=== PATIENT | male | born 1975 | race Hispanic/Latino ===

== ENCOUNTER 2016-10-06 00:56 | Emergency (ER) | payer MEDICAID, OTHER ==
[2016-10-06 00:56] VITALS: BMI 24.2
[2016-10-06 01:18] VITALS: BP 118/64; RESP 16; TEMP 98.2
[2016-10-06 01:35] VITALS: PULSE 89; O2SAT 98
--- NOTE | 2016-10-06 01:38 | ED PDOC ---
HPI: Psych/Substance Abuse Time Seen by Provider: 10/06/16 01:13 Chief Complaint (Nursing): Substance Abuse Chief Complaint (Provider): ETOH History Per: Patient History/Exam Limitations: no limitations Onset/Duration Of Symptoms: Unknown Current Symptoms Are (Timing): Still Present Suicide/Self Injury Attempted (Context): None Modifying Factor(s): Alcohol Associated Symptoms: denies: Anger, Anxiety, Agitation, Depression, Paranoia, Suicidal Thoughts, Suicidal Plan Involuntary Hold By: None Additional History Per: Patient Additional Complaint(s): 41 y/o male who is well known to this department who presents this evening for public intoxication. He admits to ETOH tonight and denies any medical complaint. Past Medical History Vital Signs: Last Vital Signs Temp 98.2 F 10/06/16 01:16 Pulse 89 10/06/16 01:35 Resp 16 10/06/16 01:35 BP 118/64 10/06/16 01:16 Pulse Ox 98 10/06/16 01:35 - Medical History PMH: Anxiety, Arthritis (b/l ankle), Depression, Fractures (left leg), Seizures (alcohol related) Denies: HIV, HTN, Chronic Kidney Disease, Sexually Transmitted Disease - Surgical History Surgical History: No Surg Hx - Family History Family History: States: Unknown Family Hx - Social History Current smoker - smoking cessation education provided: No Alcohol: Occasional - Immunization History Hx Tetanus Toxoid Vaccination: No Hx Influenza Vaccination: No Hx Pneumococcal Vaccination: No - Home Medications Home Medications: Ambulatory Orders Medication Instructions Recorded Phenytoin, Extended [Dilantin 100 mg PO TID #30 cer 04/24/16 Kapseals] chlordiazePOXIDE [Chlordiazepoxide 25 mg PO TID 06/21/16 HCl] Folic Acid 1 mg PO DAILY tab 06/27/16 Multivitamins [Hexavitamin] 1 tab PO DAILY tab 06/27/16 cefTRIAXone [Rocephin] 1 gm IVPB DAILY vial 06/27/16 traZODone [Desyrel] 50 mg PO HS PRN #30 tab 06/27/16 - Allergies Allergies/Adverse Reactions: Allergies Allergy/AdvReac Type Severity Reaction Status Date / Time No Known Allergies Allergy Verified 07/27/16 21:12 Review of Systems ROS Statement: Except As Marked, All Systems Reviewed And Found Negative Physical Exam - Reviewed Nursing Documentation Reviewed: Yes Vital Signs Reviewed: Yes - Physical Exam Appears: Positive for: Well, Non-toxic, No Acute Distress Head Exam: Positive for: ATRAUMATIC, NORMAL INSPECTION, NORMOCEPHALIC Skin: Positive for: Normal Color, Warm, DRY Eye Exam: Positive for: EOMI, Normal appearance, PERRL ENT: Positive for: Normal ENT Inspection Neck: Positive for: Normal, Painless ROM Cardiovascular/Chest: Positive for: Regular Rate, Rhythm Respiratory: Positive for: CNT, Normal Breath Sounds Gastrointestinal/Abdominal: Positive for: Normal Exam, Bowel Sounds, Soft Back: Positive for: Normal Inspection Extremity: Positive for: Normal ROM Neurologic/Psych: Positive for: Alert, Oriented - ECG O2 Sat by Pulse Oximetry: 98 Medical Decision Making Medical Decision Making: Time: 01:37a Impression: 41 y/o male who is here for public intoxication. Discharge Instructions: He is awake and alert, gait is steady, and there are no medical complaints. Counseling was provided regarding the diagnosis and prognosis. All questions answered and there is agreement with the plan to discharge home with instructions. Patient stable for discharge. Return if symptoms persist or worsen. Scribe Attestation: Documented by Stephanie De Guzman acting as a scribe for Franck Higgins MD. Scribe Attestation: All medical record entries made by the Scribe were at my direction and personally dictated by me. I have reviewed the chart and agree that the record accurately reflects my personal performance of the history, physical exam, medical decision making, and the department course for this patient. I have also personally directed, reviewed, and agree with the discharge instructions and disposition. Disposition - Clinical Impression Clinical Impression: Alcohol abuse - Patient ED Disposition Is Patient to be Admitted: No Counseled Patient/Family Regarding: Diagnosis, Need For Followup - Disposition Disposition: Routine/Home Disposition Time: 01:40 Condition: STABLE Instructions: Alcohol Dependence (ED)
== END 2016-10-06 01:44 | disposition home or self-care (01) ==
LOC: H.ER 00:56
DX: F10.10 Alcohol abuse, uncomplicated (principal); F32.9 Major depressive disorder, single episode, unspecified; F41.9 Anxiety disorder, unspecified

== ENCOUNTER 2016-11-18 18:38 | Emergency (ER) | payer MEDICAID, OTHER ==
[2016-11-18 18:38] VITALS: BMI 25.0
[2016-11-18 18:51] VITALS: BP 128/78; PULSE 82; RESP 18; TEMP 97.9; O2SAT 97
== END 2016-11-18 19:00 | disposition left against medical advice (07) ==
LOC: H.ER 18:38
DX: Z02.89 Encounter for other administrative examinations (principal)

== ENCOUNTER 2016-11-21 03:44 | Emergency (ER) | payer MEDICAID, OTHER ==
[2016-11-21 03:45] VITALS: BMI 25.0
[2016-11-21 03:52] VITALS: BP 126/77; PULSE 92; RESP 17; TEMP 98; O2SAT 99
--- NOTE | 2016-11-21 04:17 | ED PDOC ---
Lower Extremity Pain/Injury Time Seen by Provider: 11/21/16 03:49 Chief Complaint (Nursing): Lower Extremity Problem/Injury Chief Complaint (Provider): Lower Extremity Problem/Injury History Per: Patient History/Exam Limitations: no limitations Severity: Mild Additional Complaint(s): 41 y/o male patient presenting to the ED with knee pain and medical clearance need. Pt states he suffers from chronic knee pain and is experiencing right knee pain. PT is well known to this provider for alcoholism. PT was brought in by [place] police department due to the PT having an outstanding warrant and needed to be medically cleared for incarceration. PT states he takes Dilantin for his alcohol related sickness but he has not been taking it regularly. Past Medical History Reviewed: Historical Data, Nursing Documentation, Vital Signs Vital Signs: Last Vital Signs Temp 98.0 F 11/21/16 03:49 Pulse 92 H 11/21/16 03:49 Resp 17 11/21/16 03:49 BP 126/77 11/21/16 03:49 Pulse Ox 99 11/21/16 03:49 - Medical History PMH: Anxiety, Arthritis (b/l ankle), Depression, Fractures (left leg), Seizures (alcohol related) Denies: HIV, HTN, Chronic Kidney Disease, Sexually Transmitted Disease - Family History Family History: States: Unknown Family Hx - Social History Current smoker - smoking cessation education provided: No Alcohol: > 2 Drinks/Day Drugs: Denies - Immunization History Hx Tetanus Toxoid Vaccination: No Hx Influenza Vaccination: No Hx Pneumococcal Vaccination: No - Home Medications Home Medications: Ambulatory Orders Medication Instructions Recorded No Known Home Med 11/19/16 - Allergies Allergies/Adverse Reactions: Allergies Allergy/AdvReac Type Severity Reaction Status Date / Time No Known Allergies Allergy Verified 11/19/16 23:39 Review of Systems ROS Statement: Except As Marked, All Systems Reviewed And Found Negative Musculoskeletal: Positive for: Leg Pain ((+)Right Knee Pain) Physical Exam - Reviewed Nursing Documentation Reviewed: Yes Vital Signs Reviewed: Yes - Physical Exam Appears: Positive for: Non-toxic, No Acute Distress Skin: Positive for: Normal Color, Warm, Dry Extremity: Positive for: Normal ROM Neurologic/Psych: Positive for: Alert, Oriented, Other ((+)Unkempt). Negative for: Motor/Sensory Deficits - ECG O2 Sat by Pulse Oximetry: 99 (RA) Pulse Ox Interpretation: Normal Medical Decision Making Medical Decision Making: Time: 348 Initial impression: Chronic Knee Pain, Medical Clearance, PMHX of Alcoholism, Seizures due to alcoholism. Initial plan: --Ibuprofen --Phenytoin 0400: Discharge PT stable for discharged and cleared for transfer to law enforcement. Scribe Attestation: Documented by Christen Monaco, acting as a scribe for Franck Higgins MD MD Scribe Attestation: All medical record entries made by the Scribe were at my direction and personally dictated by me. I have reviewed the chart and agree that the record accurately reflects my personal performance of the history, physical exam, medical decision making, and the department course for this patient. I have also personally directed, reviewed, and agree with the discharge instructions and disposition. Disposition - Clinical Impression Clinical Impression: Knee pain, Alcohol dependence syndrome - Patient ED Disposition Is Patient to be Admitted: No - Disposition Disposition: Discharged/Transfer to Law Enforcement Disposition Time: 04:00 Condition: STABLE Additional Instructions: Patient is medically and psychiatrically stable for incarceration Instructions: Knee Pain (ED), Alcohol Dependence (ED)
== END 2016-11-21 05:32 ==
LOC: H.ER 03:44
DX: F10.20 Alcohol dependence, uncomplicated (principal); G89.29 Other chronic pain; F32.9 Major depressive disorder, single episode, unspecified; F41.9 Anxiety disorder, unspecified

== ENCOUNTER 2017-04-25 21:44 | Emergency (ER) | payer MEDICAID, OTHER ==
[2017-04-25 21:44] VITALS: BMI 25.0
[2017-04-25 21:50] VITALS: BP 156/75; PULSE 86; RESP 18; TEMP 97.9; O2SAT 97
--- NOTE | 2017-04-25 22:25 | ED PDOC ---
HPI: Psych/Substance Abuse Time Seen by Provider: 04/25/17 21:52 Chief Complaint (Nursing): Alcohol Ingestion Chief Complaint (Provider): Alcohol Intoxication ED Caveat: Intoxicated History Per: Patient History/Exam Limitations: intoxication Current Symptoms Are (Timing): Still Present Additional History Per: EMS Additional Complaint(s): Donal is a 42 y/o male with a history of alcoholism was brought to the ED by EMS after he was found in someone's hallway asleep. Patient admits to drinking today and states he just wanted to find some place warm. He was recently hospitalized and discharged today for possible cellulitis but ultimately dermatitis and hyponatremia. His only complaint is leg pains consistent with his chronic pains, and he says he is hungry and requests food. Patient is undomiciled. PMD: None Past Medical History Reviewed: Historical Data, Nursing Documentation, Vital Signs Vital Signs: Last Vital Signs Temp 97.9 F 04/25/17 21:46 Pulse 86 04/25/17 21:46 Resp 18 04/25/17 21:46 BP 156/75 H 04/25/17 21:46 Pulse Ox 97 04/25/17 21:46 - Medical History PMH: Anxiety, Arthritis (b/l ankle), Depression, Fractures (left leg), Seizures (alcohol related) Denies: Chronic Kidney Disease - Family History Family History: States: Unknown Family Hx - Living Arrangements Living Arrangements: Other (undomiciled) - Social History Current smoker - smoking cessation education provided: Yes Alcohol: > 2 Drinks/Day - Immunization History Hx Tetanus Toxoid Vaccination: No Hx Influenza Vaccination: No Hx Pneumococcal Vaccination: No - Home Medications Home Medications: Ambulatory Orders Medication Instructions Recorded No Known Home Med 11/19/16 - Allergies Allergies/Adverse Reactions: Allergies Allergy/AdvReac Type Severity Reaction Status Date / Time No Known Allergies Allergy Verified 04/17/17 14:00 Review of Systems Review Of Systems: ROS cannot be obtained secondary to pt's inabilty to answer questions. Cardiovascular: Positive for: Edema Musculoskeletal: Positive for: Back Pain, Leg Pain Skin: Positive for: Rash (both legs) Physical Exam - Reviewed Nursing Documentation Reviewed: Yes Vital Signs Reviewed: Yes - Physical Exam Appears: Positive for: Non-toxic, No Acute Distress (dissheveled and unkempt) Head Exam: Positive for: ATRAUMATIC, NORMOCEPHALIC Skin: Positive for: Rash (dried stool upper posterior legs, nonblanching purple erythema bilateral posterior upper legs to buttocks) Eye Exam: Positive for: EOMI, PERRL Neck: Positive for: Painless ROM, Supple Gastrointestinal/Abdominal: Positive for: Soft. Negative for: Tenderness, Mass , Distended, Guarding Back: Positive for: Normal Inspection. Negative for: Decreased ROM Extremity: Positive for: Other (bilateral upper legs: rash as described, pedal edema) Lymphatic: Negative for: Adenopathy Neurologic/Psych: Positive for: Alert. Negative for: Motor/Sensory Deficits - Laboratory Results Result Diagrams: 04/25/17 22:33 04/25/17 22:33 - ECG O2 Sat by Pulse Oximetry: 97 (RA) Pulse Ox Interpretation: Normal Medical Decision Making Medical Decision Making: Time: 22:14 Initial Impression: Alcohol intoxication, homelessness, dermatitis, chronic leg pain Initial Plan: --Blood type and screen --Alcohol serum --CMP --Creatinine Phosphate --Magnesium --Phosphorous --CBC --PTT --Prothrombin Time Pt with hyponatremia. IVF ordered No lab abnormalities c/w acute infection. STable for dc. Scribe Attestation: Documented by Mark Galindo, acting as a scribe for Michelle Escalante MD Provider Scribe Attestation: All medical record entries made by the Scribe were at my direction and personally dictated by me. I have reviewed the chart and agree that the record accurately reflects my personal performance of the history, physical exam, medical decision making, and the department course for this patient. I have also personally directed, reviewed, and agree with the discharge instructions and disposition. Disposition - Clinical Impression Clinical Impression: Alcohol intoxication, Hyponatremia, Stasis dermatitis of both legs - Disposition Referrals: [facility] [Outside] Disposition: Routine/Home Disposition Time: 23:36 Condition: STABLE Instructions: Hyponatremia (ED), Abuse of Alcohol (ED), Stasis Dermatitis (ED) Forms: [employer] (Thai)
[2017-04-25 22:38] LABS: BASO # 0.1 K/uL (0.0-0.2); BASO % 1.5 % (0.0-2.0); EOS # 0.2 K/uL (0.0-0.7); EOS % 2.3 % (0.0-4.0); HEMOGLOBIN 13.6 g/dL (12.0-18.0); LYMPH # 2.7 K/uL (1.0-4.3); LYMPH % 29.1 % (20.0-40.0); MEAN CELL VOLUME 97.6 fl (80.0-94.0); MEAN CORPUSCULAR HEMOGLOBIN 33.6 pg (27.0-31.0); MEAN CORPUSCULAR HGB CONC 34.4 g/dL (33.0-37.0); MEAN PLATELET VOLUME 6.3 fl (7.2-11.7); MONO # 1.1 K/uL (0.0-0.8); MONO % 12.5 % (0.0-10.0); NEUT % 54.6 % (50.0-75.0); RBC 4.05 Mil/uL (4.40-5.90); RED CELL DISTRIBUTION WIDTH 12.7 % (11.5-14.5); WHITE BLOOD COUNT 9.1 K/uL (4.8-10.8)
[2017-04-25 22:49] LABS: ALB/GLOB RATIO 1.2 (1.0-2.1); ALT/SGPT 32 U/L (21-72); AST/SGOT 38 U/L (17-59); BLOOD UREA NITROGEN 4 mg/dl (9-20); CALCIUM 9.1 mg/dL (8.4-10.2); GFR AFRICAN-AMERICAN > 60; GFR NON-AFRICAN AMERICAN > 60; MAGNESIUM 1.5 MG/DL (1.6-2.3)
[2017-04-25 23:23] LABS: INR 0.9 (0.9-1.2); PROTHROMBIN TIME 9.6 Seconds (9.8-13.1)
[2017-04-25 23:24] LABS: PARTIAL THROMBOPLASTIN TIME 36.7 Seconds (25.6-37.1)
[2017-04-25] MEDS ORDERED: Sodium Chloride 0.9% 1,000 ML IV STA (23:34)
== END 2017-04-26 01:11 | disposition home or self-care (01) ==
LOC: H.ER 21:44
DX: F10.129 Alcohol abuse with intoxication, unspecified (principal); E87.1 Hypo-osmolality and hyponatremia; G89.29 Other chronic pain; L30.9 Dermatitis, unspecified; Z59.0 Homelessness; I87.2 Venous insufficiency (chronic) (peripheral); F41.9 Anxiety disorder, unspecified; F32.9 Major depressive disorder, single episode, unspecified
CPT/HCPCS: 80053; 80320; 82550; 82948; 83735; 84100; 85025; 85610; 85730; 86850; 86900; 99282; J7040

== ENCOUNTER 2017-05-04 05:16 | Emergency (ER) | payer MEDICAID ==
[2017-05-04 05:25] VITALS: BP 138/90; PULSE 78; RESP 18; TEMP 98; O2SAT 98
--- NOTE | 2017-05-04 05:26 | ED PDOC ---
HPI: General Adult Time Seen by Provider: 05/04/17 05:23 Chief Complaint (Provider): leg pain History Per: Patient Additional Complaint(s): 42 year old non-domiciled male presents to ED with pain to both legs ongoing for about 5 days. Patient states he has been walking a lot and his feet hurt. Patient also admits to daily alcohol use. He denies fall or trauma. Patient denies any seizures today. Past Medical History Reviewed: Historical Data, Nursing Documentation, Vital Signs - Medical History PMH: Anxiety, Arthritis (b/l ankle), Depression, Fractures (left leg), Seizures (alcohol related) - Family History Family History: States: Unknown Family Hx - Living Arrangements Living Arrangements: Other (non-domiciled) - Social History Alcohol: > 2 Drinks/Day - Home Medications Home Medications: Ambulatory Orders Medication Instructions Recorded Phenytoin, Extended [Dilantin 100 mg PO TID #90 cer 05/03/17 Evelyn] - Allergies Allergies/Adverse Reactions: Allergies Allergy/AdvReac Type Severity Reaction Status Date / Time No Known Allergies Allergy Verified 05/02/17 23:56 Review of Systems ROS Statement: Except As Marked, All Systems Reviewed And Found Negative Musculoskeletal: Positive for: Leg Pain Physical Exam - Reviewed Nursing Documentation Reviewed: Yes Vital Signs Reviewed: Yes - Physical Exam Appears: Positive for: Well, Non-toxic, No Acute Distress Head Exam: Positive for: ATRAUMATIC, NORMAL INSPECTION, NORMOCEPHALIC Skin: Negative for: Rash Eye Exam: Positive for: Normal appearance Extremity: Positive for: Normal ROM Neurologic/Psych: Positive for: Alert, Oriented, Gait (steady) - ECG O2 Sat by Pulse Oximetry: 98 Pulse Ox Interpretation: Normal Medical Decision Making Medical Decision Making: Impression: leg pain Patient is ambulatory with steady gait. He was referred to clinic for follow up. Disposition - Clinical Impression Clinical Impression: Alcohol abuse, Leg pain - Patient ED Disposition Is Patient to be Admitted: No - Disposition Referrals: [facility] [Outside] Disposition: Routine/Home Disposition Time: 05:24 Condition: STABLE Additional Instructions: Follow up with clinic. Instructions: Abuse of Alcohol (ED), Leg Pain (ED)
== END 2017-05-04 05:28 | disposition home or self-care (01) ==
LOC: H.ER 05:16
DX: F10.10 Alcohol abuse, uncomplicated (principal); M79.606 Pain in leg, unspecified; F32.9 Major depressive disorder, single episode, unspecified; F41.9 Anxiety disorder, unspecified

== ENCOUNTER 2017-05-06 19:15 | Emergency (ER) | payer MEDICAID ==
[2017-05-06 19:21] VITALS: BP 153/84; PULSE 96; RESP 18; TEMP 98.1; O2SAT 98
--- NOTE | 2017-05-06 19:38 | ED PDOC ---
Lower Extremity Pain/Injury Time Seen by Provider: 05/06/17 19:30 Chief Complaint (Nursing): Lower Extremity Problem/Injury Chief Complaint (Provider): Left Ankle Pain History Per: Patient History/Exam Limitations: no limitations Current Symptoms Are (Timing): Still Present Additional Complaint(s): 42 year old male presenting to ED complaining of left ankle pain. The patient states that he had an accident a few years villal[place] that causes him to have chronic pain in his ankle. Patient offers no other medical complaint. Past Medical History Reviewed: Historical Data, Nursing Documentation, Vital Signs Vital Signs: Last Vital Signs Temp 98.1 F 05/06/17 19:21 Pulse 96 H 05/06/17 19:21 Resp 18 05/06/17 19:21 BP 153/84 H 05/06/17 19:21 Pulse Ox 98 05/06/17 19:21 - Medical History PMH: Anxiety, Arthritis (b/l ankle), Depression, Fractures (left leg), Seizures (alcohol related) Denies: Chronic Kidney Disease - Surgical History Surgical History: No Surg Hx - Family History Family History: States: Unknown Family Hx - Living Arrangements Living Arrangements: Other ([place]omic[place]) - Social History Current smoker - smoking cessation education provided: Yes (Heavy Smoker > 10 Cigarettes Daily) Ex-Smoker (has not smoked in the last 12 months): Yes Alcohol: > 2 Drinks/Day Drugs: Denies - Immunization History Hx Tetanus Toxoid Vaccination: No Hx Influenza Vaccination: No Hx Pneumococcal Vaccination: No - Home Medications Home Medications: Ambulatory Orders Medication Instructions Recorded Phenytoin, Extended [Dilantin 100 mg PO TID #90 cer 05/03/17 Evelyn] - Allergies Allergies/Adverse Reactions: Allergies Allergy/AdvReac Type Severity Reaction Status Date / Time No Known Allergies Allergy Verified 05/06/17 19:19 Review of Systems ROS Statement: Except As Marked, All Systems Reviewed And Found Negative Constitutional: Negative for: Fever, Chills Gastrointestinal: Negative for: Abdominal Pain Musculoskeletal: Positive for: Other (left ankle pain) - ECG O2 Sat by Pulse Oximetry: 98 (RA) Pulse Ox Interpretation: Normal - Progress ED Course And Treament: Patient to f/u with podiatry outpatient for chronic ankle pain. Medical Decision Making Medical Decision Makin Initial Impression 42 y/o male presenting with left ankle pain Initial Plan: * Reevaluation Documented by Erin Singleton acting as a scribe for Charly Meade PA-C. All medical record entries made by the Scribe were at my direction and personally dictated by me. I have reviewed the chart and agree that the record accurately reflects my personal performance of the history, physical exam, medical decision making, and the department course for this patient. I have also personally directed, reviewed, and agree with the discharge instructions and disposition. Disposition - Clinical Impression Clinical Impression: Ankle pain - Patient ED Disposition Is Patient to be Admitted: No - Disposition Referrals: Podiatry Clinic [Outside] Disposition: Routine/Home Disposition Time: 19:35 Condition: FAIR Instructions: Leg Pain (ED) Forms: [employer] (Greek)
== END 2017-05-06 19:56 | disposition home or self-care (01) ==
LOC: H.ER 19:15
DX: M25.572 Pain in left ankle and joints of left foot (principal); F32.9 Major depressive disorder, single episode, unspecified; F41.9 Anxiety disorder, unspecified; F17.210 Nicotine dependence, cigarettes, uncomplicated

== ENCOUNTER 2017-05-11 16:43 | Emergency (ER) | payer MEDICAID ==
[2017-05-11 18:13] VITALS: BP 133/95; PULSE 93; RESP 16; O2SAT 100
--- NOTE | 2017-05-11 19:30 | ED PDOC ---
Lower Extremity Pain/Injury Time Seen by Provider: 05/11/17 18:09 Chief Complaint (Nursing): Lower Extremity Problem/Injury Chief Complaint (Provider): toe injury History Per: Patient History/Exam Limitations: no limitations Additional Complaint(s): 42yo Min ed for eval. Pt soiled himself while urinating. denies drug use today. PT also c.o of toe tingling sensation to left 2nd toe Pt is homeless no fever no chest pain no SOB Past Medical History Reviewed: Historical Data, Nursing Documentation, Vital Signs Vital Signs: Last Vital Signs Temp Pulse 93 H 05/11/17 18:11 Resp 16 05/11/17 18:11 BP 133/95 H 05/11/17 18:11 Pulse Ox 100 05/11/17 18:11 - Medical History PMH: Anxiety, Arthritis (b/l ankle), Depression, Fractures (left leg), Seizures (alcohol related) Denies: Chronic Kidney Disease - Family History Family History: States: Unknown Family Hx - Immunization History Hx Tetanus Toxoid Vaccination: No Hx Influenza Vaccination: No Hx Pneumococcal Vaccination: No - Home Medications Home Medications: Ambulatory Orders Medication Instructions Recorded Phenytoin, Extended [Dilantin 100 mg PO TID #90 cer 05/03/17 Kapseals] Clindamycin [Cleocin] 300 mg PO TID #30 cap 05/11/17 Mupirocin 2% Ointment [Bactroban 1 applic TOP BID #1 tube 05/11/17 Ointment] - Allergies Allergies/Adverse Reactions: Allergies Allergy/AdvReac Type Severity Reaction Status Date / Time No Known Allergies Allergy Verified 05/06/17 19:19 Wells Criteria for PE - Wells Criteria for Pulmonary Embolism Clinical Signs and Symptoms of DVT: No P.E is #1 Diagnosis, or Equally Likely: No Heart Rate >100: No Immobilization at least 3 days;Surgery previous 4 weeks: No Previous, objectively diagnosed PE or DVT: No Hemoptysis: No Malignancy w/treatment within 6 months, or palliative: No Total Score: 0 Review of Systems ROS Statement: Except As Marked, All Systems Reviewed And Found Negative Musculoskeletal: Positive for: Foot Pain Physical Exam - Reviewed Nursing Documentation Reviewed: Yes Vital Signs Reviewed: Yes - Physical Exam Appears: Positive for: Well, Non-toxic, No Acute Distress Skin: Positive for: Normal Color, Warm, DRY Cardiovascular/Chest: Positive for: Regular Rate, Rhythm Respiratory: Positive for: CNT, Normal Breath Sounds Extremity: Positive for: Other (left 2nd toe: discoloration noted, erythema noted. concernes for ellison bite. nuerovasc intact) Neurologic/Psych: Positive for: Alert, Oriented - ECG O2 Sat by Pulse Oximetry: 100 - Radiology X-Ray: Interpreted by Me X-Ray Interpretation: No Acute Disease Medical Decision Making Medical Decision Making: pt will be given a tetanus inj and d/c on murpcocin, socks and clindaymycin. Disposition - Clinical Impression Clinical Impression: [place] - Patient ED Disposition Is Patient to be Admitted: No Counseled Patient/Family Regarding: Studies Performed, Diagnosis, Need For Followup, Rx Given - Disposition Referrals: Podiatry Clinic [Outside] [facility] [Outside] Disposition: Routine/Home Disposition Time: 19:32 Condition: STABLE Prescriptions: Clindamycin [Cleocin] 300 mg PO TID #30 cap Mupirocin 2% Ointment [Bactroban Ointment] 1 applic TOP BID #1 tube Instructions: [place] (ED)
--- NOTE | 2017-05-12 11:08 | RAD ---
PROCEDURE: Left Foot Radiographs. HISTORY: 2nd toe injury COMPARISON: None. FINDINGS: BONES: No fracture. Intramedullary jon in tibia. Tibiotalar osteoarthritis. JOINTS: Mild hallux valgus. SOFT TISSUES: Normal. OTHER FINDINGS: None. IMPRESSION: No acute fracture identified.
== END 2017-05-11 21:20 | disposition home or self-care (01) ==
LOC: H.ER 16:43
DX: T34.832A Frostbite with tissue necrosis of left toe(s), initial encounter (principal); X31.XXXA Exposure to excessive natural cold, initial encounter; F32.9 Major depressive disorder, single episode, unspecified; F41.9 Anxiety disorder, unspecified

== ENCOUNTER 2017-05-11 23:48 | Emergency (ER) | payer MEDICAID ==
[2017-05-12 00:04] VITALS: TEMP 99.3
[2017-05-12 01:06] LABS: BASO # 0.1 K/uL (0.0-0.2); BASO % 0.7 % (0.0-2.0); EOS # 0.3 K/uL (0.0-0.7); EOS % 2.8 % (0.0-4.0); HEMOGLOBIN 12.9 g/dL (12.0-18.0); LYMPH # 2.9 K/uL (1.0-4.3); LYMPH % 30.1 % (20.0-40.0); MEAN CELL VOLUME 99.2 fl (80.0-94.0); MEAN CORPUSCULAR HEMOGLOBIN 33.9 pg (27.0-31.0); MEAN CORPUSCULAR HGB CONC 34.2 g/dL (33.0-37.0); MEAN PLATELET VOLUME 6.7 fl (7.2-11.7); MONO % 10.3 % (0.0-10.0); NEUT # 5.5 K/uL (1.8-7.0); NEUT % 56.1 % (50.0-75.0); NRBC % 0.1 % (0.0-0.0); RBC 3.8 Mil/uL (4.40-5.90); RED CELL DISTRIBUTION WIDTH 12.9 % (11.5-14.5); WHITE BLOOD COUNT 9.7 K/uL (4.8-10.8)
--- NOTE | 2017-05-12 01:21 | ED PDOC ---
HPI: Seizure Time Seen by Provider: 05/12/17 00:15 Chief Complaint (Nursing): Seizure Chief Complaint (Provider): Seizure History Per: Other History/Exam Limitations: clinical condition (Mental status) Additional Complaint(s): Donal Braxton is a 42 year old male, with a past medical history of seizures, alcoholism, and depression, who suffered a seizure in the waiting room of the ED. Seizure was not witnessed by me. Patient has been to ED many times due to alcoholism. Patient is undomiciled. PMD: None Past Medical History Reviewed: Historical Data, Nursing Documentation, Vital Signs, Unable To Obtain Vital Signs: Last Vital Signs Temp 99.3 F 05/11/17 23:50 Pulse 95 H 05/12/17 04:36 Resp 12 05/12/17 04:36 BP 122/74 05/12/17 04:36 Pulse Ox 100 05/12/17 04:36 - Medical History PMH: Anxiety, Arthritis (b/l ankle), Depression, Fractures (left leg), Seizures (alcohol related) Denies: Chronic Kidney Disease - Surgical History Surgical History: No Surg Hx - Family History Family History: States: Unknown Family Hx - Immunization History Hx Tetanus Toxoid Vaccination: No Hx Influenza Vaccination: No Hx Pneumococcal Vaccination: No - Home Medications Home Medications: Ambulatory Orders Medication Instructions Recorded Phenytoin, Extended [Dilantin 100 mg PO TID #90 cer 05/03/17 [facility]] Clindamycin [Cleocin] 300 mg PO TID #30 cap 05/11/17 Mupirocin 2% Ointment [Bactroban 1 applic TOP BID #1 tube 05/11/17 Ointment] - Allergies Allergies/Adverse Reactions: Allergies Allergy/AdvReac Type Severity Reaction Status Date / Time No Known Allergies Allergy Verified 05/06/17 19:19 Review of Systems Review Of Systems: ROS cannot be obtained secondary to pt's inabilty to answer questions. (Mental status) Physical Exam - Reviewed Nursing Documentation Reviewed: Yes Vital Signs Reviewed: Yes - Physical Exam Appears: Positive for: Well (Patient found sleeping comfortably in room. ), Non- toxic, No Acute Distress Head Exam: Positive for: ATRAUMATIC Cardiovascular/Chest: Positive for: Regular Rate, Rhythm. Negative for: Murmur Respiratory: Positive for: Normal Breath Sounds. Negative for: Respiratory Distress Comments: Patient has poor hygiene. - Laboratory Results Result Diagrams: 05/12/17 01:02 05/12/17 01:02 - ECG O2 Sat by Pulse Oximetry: 99 (RA) Pulse Ox Interpretation: Normal Medical Decision Making Medical Decision Making: Time: Plan: --Alcohol serum --CMP --CBC w/ differential --Reevaluation Time: 03:26 CT Head FINDINGS: Brain: Moderate atrophy. No intracranial hemorrhage. No mass. Several scattered foci of decreased attenuation within periventricular/subcortical white matter. No definite edema. Ventricles: No hydrocephalus. Bones/joints: No acute fracture. Soft tissues: Unremarkable. Sinuses: Scattered minimal to mild mucosal thickening. Mastoid air cells: No mastoid effusion. Orbits: Unremarkable as visualized. IMPRESSION: 1. Nonspecific white matter changes. Acute infarction may be CT occult within first 24 hours. If a focal deficit persists, consider followup CT or MRI for further evaluation. 2. Incidental/non-acute findings are described above. Time: 4:00 --Upon provider reevaluation patient is medically stable, awake and alert. and requires no further treatment in the ED at this time. Counseling was provided and all questions were answered regarding diagnosis and need for follow up with Neurologist. There is agreement to discharge plan. Return if symptoms persist or worsen. Scribe Attestation: Documented by Jesus Carvajal acting as a scribe for Reynaldo Topete MD. MD Juarez Attestation: All medical record entries made by the Scribe were at my direction and personally dictated by me. I have reviewed the chart and agree that the record accurately reflects my personal performance of the history, physical exam, medical decision making, and the department course for this patient. I have also personally directed, reviewed, and agree with the discharge instructions and disposition. Disposition - Clinical Impression Clinical Impression: Atypical seizure - Patient ED Disposition Is Patient to be Admitted: No Counseled Patient/Family Regarding: Studies Performed, Diagnosis, Need For Followup - Disposition Referrals: [facility] [Outside] Eran Silva MD [Staff Provider] - Disposition: Routine/Home Disposition Time: 04:00 Condition: IMPROVED Additional Instructions: follow up with neurology as an outpatient in 2 days return to the ED with any worsening or concerning symptoms Instructions: Epilepsy (ED) Forms: [employer] (Argentine)
[2017-05-12 01:22] LABS: ALB/GLOB RATIO 1.3 (1.0-2.1); ALBUMIN 4.2 g/dL (3.5-5.0); ALT/SGPT 26 U/L (21-72); AST/SGOT 30 U/L (17-59); BLOOD UREA NITROGEN 6 mg/dl (9-20); CALCIUM 9.4 mg/dL (8.4-10.2); GFR AFRICAN-AMERICAN > 60; GFR NON-AFRICAN AMERICAN > 60
--- NOTE | 2017-05-12 03:26 | CT ---
EXAM: CT Head Without Intravenous Contrast CLINICAL HISTORY: 42 years old, male; Pain; Headache; Headache not specified TECHNIQUE: Axial computed tomography images of the head/brain without intravenous contrast. All CT scans at this facility use one or more dose reduction techniques, viz.: automated exposure control; ma/kV adjustment per patient size (including targeted exams where dose is matched to indication; i.e. head); or iterative reconstruction technique. Coronal and sagittal reformatted images were created and reviewed. COMPARISON: CT - HEAD W/O CONTRAST 2015-11-19 00:10 FINDINGS: Brain: Moderate atrophy. No intracranial hemorrhage. No mass. Several scattered foci of decreased attenuation within periventricular/subcortical white matter. No definite edema. Ventricles: No hydrocephalus. Bones/joints: No acute fracture. Soft tissues: Unremarkable. Sinuses: Scattered minimal to mild mucosal thickening. Mastoid air cells: No mastoid effusion. Orbits: Unremarkable as visualized. IMPRESSION: 1. Nonspecific white matter changes. Acute infarction may be CT occult within first 24 hours. If a focal deficit persists, consider followup CT or MRI for further evaluation. 2. Incidental/non-acute findings are described above.
[2017-05-12 04:36] VITALS: BP 122/74; PULSE 95; RESP 12
[2017-05-12 05:48] VITALS: O2SAT 99
== END 2017-05-12 05:25 | disposition home or self-care (01) ==
LOC: H.ER 23:48
DX: G40.909 Epilepsy, unspecified, not intractable, without status epilepticus (principal); R56.9 Unspecified convulsions; F32.9 Major depressive disorder, single episode, unspecified; F41.9 Anxiety disorder, unspecified

== ENCOUNTER 2017-05-16 16:46 | Emergency (ER) | payer MEDICAID ==
[2017-05-16 16:52] VITALS: BP 158/77; PULSE 92; RESP 18; TEMP 98; O2SAT 100
--- NOTE | 2017-05-16 16:56 | ED PDOC ---
HPI: Psych/Substance Abuse Time Seen by Provider: 05/16/17 16:51 Chief Complaint (Nursing): Alcohol Ingestion Chief Complaint (Provider): Evaluation of alcohol abuse History Per: Patient History/Exam Limitations: no limitations Onset/Duration Of Symptoms: Hrs Current Symptoms Are (Timing): Still Present Modifying Factor(s): Alcohol Additional Complaint(s): Pt walked in with EMS for evaluation of alcohol abuse. Pt with steady gait on arrival. EMS states he flagged down police stating her wanted to go to the ER. PT asks for restroom and food. Past Medical History Reviewed: Historical Data, Nursing Documentation, Vital Signs Vital Signs: Last Vital Signs Temp 98 F 05/16/17 16:50 Pulse 92 H 05/16/17 16:50 Resp 18 05/16/17 16:50 BP 158/77 H 05/16/17 16:50 Pulse Ox 100 05/16/17 16:50 - Medical History PMH: Anxiety, Arthritis (b/l ankle), Depression, Fractures (left leg), Seizures (alcohol related) Denies: Chronic Kidney Disease - Surgical History Surgical History: No Surg Hx - Family History Family History: States: Unknown Family Hx - Living Arrangements Living Arrangements: With Family - Social History Current smoker - smoking cessation education provided: No Alcohol: Occasional Drugs: Denies - Immunization History Hx Tetanus Toxoid Vaccination: No Hx Influenza Vaccination: No Hx Pneumococcal Vaccination: No - Home Medications Home Medications: Ambulatory Orders Medication Instructions Recorded Phenytoin, Extended [Dilantin 100 mg PO TID #90 cer 05/03/17 Ev[facility]] - Allergies Allergies/Adverse Reactions: Allergies Allergy/AdvReac Type Severity Reaction Status Date / Time No Known Allergies Allergy Verified 05/15/17 21:18 Review of Systems ROS Statement: Except As Marked, All Systems Reviewed And Found Negative Constitutional: Negative for: Fever, Chills Musculoskeletal: Negative for: Leg Pain, Foot Pain Physical Exam - Reviewed Nursing Documentation Reviewed: Yes Vital Signs Reviewed: Yes - Physical Exam Appears: Positive for: Well, Non-toxic, No Acute Distress Head Exam: Positive for: ATRAUMATIC, NORMAL INSPECTION, NORMOCEPHALIC Skin: Positive for: Normal Color, Warm, DRY Eye Exam: Positive for: Normal appearance ENT: Positive for: Normal ENT Inspection Neck: Positive for: Normal, Painless ROM Cardiovascular/Chest: Positive for: Regular Rate, Rhythm Respiratory: Positive for: CNT, Normal Breath Sounds Back: Positive for: Normal Inspection Extremity: Positive for: Normal ROM Neurologic/Psych: Positive for: Alert, Oriented - ECG O2 Sat by Pulse Oximetry: 100 Disposition - Clinical Impression Clinical Impression: Alcohol abuse - Patient ED Disposition Is Patient to be Admitted: No Counseled Patient/Family Regarding: Diagnosis, Need For Followup - Disposition Disposition: Routine/Home Disposition Time: 16:52 Condition: GOOD Instructions: Abuse of Alcohol (ED)
== END 2017-05-16 17:38 | disposition home or self-care (01) ==
LOC: H.ER 16:46
DX: F10.10 Alcohol abuse, uncomplicated (principal); F32.9 Major depressive disorder, single episode, unspecified; F41.9 Anxiety disorder, unspecified

== ENCOUNTER 2017-05-17 16:50 | Emergency (ER) | payer MEDICAID ==
[2017-05-17 16:55] VITALS: BP 144/68; PULSE 88; RESP 16; TEMP 97; O2SAT 98
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
== END 2017-05-17 17:42 | disposition home or self-care (01) ==
LOC: H.ER 16:50
DX: B35.3 Tinea pedis (principal)

== ENCOUNTER 2017-05-18 16:01 | Emergency (ER) | payer MEDICAID ==
[2017-05-18 16:05] VITALS: RESP 16; TEMP 98.1; O2SAT 100
[2017-05-18 16:27] VITALS: BP 133/69
[2017-05-18] MEDS ORDERED: Multivitamin (MVI) 10 ML, Thiamine 100 MG in Sodium Chloride 0.9% 1,000 ML IV ONE (17:11)
[2017-05-18 17:42] LABS: BASO # 0.1 K/uL (0.0-0.2); BASO % 1.3 % (0.0-2.0); EOS # 0.2 K/uL (0.0-0.7); EOS % 2.3 % (0.0-4.0); HEMOGLOBIN 12.5 g/dL (12.0-18.0); LYMPH # 2.6 K/uL (1.0-4.3); LYMPH % 32.6 % (20.0-40.0); MEAN CELL VOLUME 97.1 fl (80.0-94.0); MEAN CORPUSCULAR HEMOGLOBIN 33.2 pg (27.0-31.0); MEAN CORPUSCULAR HGB CONC 34.2 g/dL (33.0-37.0); MEAN PLATELET VOLUME 6.4 fl (7.2-11.7); MONO # 0.7 K/uL (0.0-0.8); MONO % 8.6 % (0.0-10.0); NEUT # 4.4 K/uL (1.8-7.0); NEUT % 55.2 % (50.0-75.0); NRBC % 0.1 % (0.0-0.0); RBC 3.75 Mil/uL (4.40-5.90); WHITE BLOOD COUNT 7.9 K/uL (4.8-10.8)
[2017-05-18] MEDS ORDERED: Multivitamin (MVI) 10 ML, Thiamine 100 MG, Folic Acid 1 MG in Sodium Chloride 0.9% 1,00... IV ONE (17:45)
--- NOTE | 2017-05-18 17:55 | ED PDOC ---
HPI: General Adult Time Seen by Provider: 05/18/17 16:49 Chief Complaint (Nursing): Chest Pain History Per: Patient Additional Complaint(s): Pt. states for the past 3 weeks pt. has had R sided chest pain radiating to the back. Reports that he feels as if he cannot take a full breath in. Denies trauma , hemoptysis, fever, cough, numbness, tingling, leg pian, hx of DVT or PE. Of note, pt. did drink 4 beers today. Past Medical History Reviewed: Historical Data, Nursing Documentation, Vital Signs Vital Signs: Last Vital Signs Temp 98.1 F 05/18/17 16:02 Pulse 83 05/18/17 17:57 Resp 16 05/18/17 16:02 BP 133/69 05/18/17 16:02 Pulse Ox 100 05/18/17 17:57 - Medical History PMH: Anxiety, Arthritis (b/l ankle), Depression, Fractures (left leg), Seizures (alcohol related) Denies: Chronic Kidney Disease - Family History Family History: States: Unknown Family Hx - Immunization History Hx Tetanus Toxoid Vaccination: No Hx Influenza Vaccination: No Hx Pneumococcal Vaccination: No - Home Medications Home Medications: Ambulatory Orders Medication Instructions Recorded Phenytoin, Extended [Dilantin 100 mg PO TID #90 cer 05/03/17 Evelyn] Butenafine HCl [Lotrimin Ultra] 0.5 gm TP BID PRN #30 cream..g. 05/17/17 - Allergies Allergies/Adverse Reactions: Allergies Allergy/AdvReac Type Severity Reaction Status Date / Time No Known Allergies Allergy Verified 05/15/17 21:18 Review of Systems ROS Statement: Except As Marked, All Systems Reviewed And Found Negative Physical Exam - Physical Exam Appears: Positive for: Well, Non-toxic, No Acute Distress Skin: Positive for: Normal Color, Warm. Negative for: Rash Eye Exam: Positive for: Normal appearance ENT: Positive for: Normal ENT Inspection Neck: Positive for: Normal, Painless ROM Cardiovascular/Chest: Positive for: Regular Rate, Rhythm Respiratory: Positive for: Normal Breath Sounds. Negative for: Respiratory Distress Gastrointestinal/Abdominal: Positive for: Normal Exam, Soft. Negative for: Tenderness Back: Positive for: Normal Inspection. Negative for: L CVA Tenderness, R CVA Tenderness Extremity: Positive for: Normal ROM. Negative for: Calf Tenderness (b/l) Neurologic/Psych: Positive for: Alert, Oriented, Gait (steady, unassisted). Negative for: Aphasia, Facial Droop - Laboratory Results Result Diagrams: 05/18/17 17:36 05/18/17 17:36 - ECG ECG: Positive for: Interpreted By Me ECG Rhythm: Positive for: Sinus Rhythm. Negative for: ST/T Changes Rate: 83 O2 Sat by Pulse Oximetry: 100 - Progress ED Course And Treament: Labs ordered. CXR ordered. Banana bag ordered. On re-evaluation, pt. in no distress. Instructed to f/u with [facility] for further evaluation. Disposition - Clinical Impression Clinical Impression: Chest wall pain - Patient ED Disposition Is Patient to be Admitted: No - Disposition Disposition: Routine/Home Disposition Time: 19:18 Condition: STABLE Instructions: Chest Wall Pain (ED) Forms: [facility] (Amharic) Wells Criteria for PE - Wells Criteria for Pulmonary Embolism Clinical Signs and Symptoms of DVT: No P.E is #1 Diagnosis, or Equally Likely: No Heart Rate >100: Yes Immobilization at least 3 days;Surgery previous 4 weeks: No Previous, objectively diagnosed PE or DVT: No Hemoptysis: No Malignancy w/treatment within 6 months, or palliative: No Total Score: 1.5
[2017-05-18 17:58] VITALS: PULSE 83
[2017-05-18 18:06] LABS: ALB/GLOB RATIO 1.3 (1.0-2.1); ALBUMIN 4.1 g/dL (3.5-5.0); ALT/SGPT 30 U/L (21-72); AST/SGOT 32 U/L (17-59); BLOOD UREA NITROGEN 4 mg/dl (9-20); CALCIUM 8.8 mg/dL (8.4-10.2); GFR AFRICAN-AMERICAN > 60; GFR NON-AFRICAN AMERICAN > 60
--- NOTE | 2017-05-19 08:21 | CARD ---
APPROVED REPORT EKG Measurement Heart [id number] <Conclusion> Normal sinus rhythm Normal ECG
--- NOTE | 2017-05-19 10:55 | RAD ---
HISTORY: chest pain COMPARISON: Chest radiograph dated 09/01/2014. FINDINGS: LUNGS: No active pulmonary disease. PLEURA: No significant pleural effusion identified, no pneumothorax apparent. CARDIOVASCULAR: Unchanged. OSSEOUS STRUCTURES: Old right posterior lateral 8th rib fracture. VISUALIZED UPPER ABDOMEN: Normal. OTHER FINDINGS: None. IMPRESSION: No active disease.
== END 2017-05-18 19:48 | disposition home or self-care (01) ==
LOC: H.ER 16:01
DX: R07.89 Other chest pain (principal); F32.9 Major depressive disorder, single episode, unspecified; F41.9 Anxiety disorder, unspecified
CPT/HCPCS: 71045; 80053; 80320; 84484; 85025; 85378; 93005; 96374; 99283; J3411; J7040

== ENCOUNTER 2017-05-23 15:29 | Emergency (ER) | payer MEDICAID ==
[2017-05-23 15:37] VITALS: BP 147/75; PULSE 89; RESP 16; TEMP 97.6; O2SAT 99
--- NOTE | 2017-05-23 16:34 | ED PDOC ---
Lower Extremity Pain/Injury Time Seen by Provider: 05/23/17 15:37 Chief Complaint (Nursing): Lower Extremity Problem/Injury Chief Complaint (Provider): Bilateral Foot Pain History Per: Patient History/Exam Limitations: no limitations Onset/Duration Of Symptoms: Other Current Symptoms Are (Timing): Still Present Additional Complaint(s): 42 year old male presents to the ED complaining of bilateral foot pain x4 years. Patient is requesting a bed to sleep as he states he is unable to get to the detention. Denies calf pain, fever, trauma. PMD: Non [facility] Provider, Past Medical History Reviewed: Historical Data, Nursing Documentation, Vital Signs Vital Signs: Last Vital Signs Temp 97.6 F 05/23/17 15:36 Pulse 89 05/23/17 15:36 Resp 16 05/23/17 15:36 BP 147/75 05/23/17 15:36 Pulse Ox 99 05/23/17 15:36 - Medical History PMH: Anxiety, Arthritis (b/l ankle), Depression, Fractures (left leg), Seizures (alcohol related) Denies: Chronic Kidney Disease - Family History Family History: States: No Known Family Hx - Immunization History Hx Tetanus Toxoid Vaccination: No Hx Influenza Vaccination: Yes (2017) Hx Pneumococcal Vaccination: No - Home Medications Home Medications: Ambulatory Orders Medication Instructions Recorded Cephalexin [Keflex] 500 mg PO TID #21 capsule 05/22/17 - Allergies Allergies/Adverse Reactions: Allergies Allergy/AdvReac Type Severity Reaction Status Date / Time No Known Allergies Allergy Verified 05/22/17 18:18 Review of Systems Musculoskeletal: Positive for: Foot Pain (b/l) Physical Exam - Reviewed Nursing Documentation Reviewed: Yes Vital Signs Reviewed: Yes - Physical Exam Appears: Positive for: Non-toxic, No Acute Distress Head Exam: Positive for: NORMAL INSPECTION Skin: Positive for: Normal Color, Warm, Dry. Negative for: Rash Eye Exam: Positive for: Normal appearance, EOMI, PERRL. Negative for: Nystagmus Extremity: Positive for: Normal ROM, Other (interdigital maceration to all toes no erythema break I skin integrity DP pulses 2 + b/l; no discharge cap refills less than 2+). Negative for: Tenderness, Swelling Neurologic/Psych: Positive for: Alert, Oriented - ECG O2 Sat by Pulse Oximetry: 99 (RA) Pulse Ox Interpretation: Normal Medical Decision Making Medical Decision Makin Initial Impression 42 year old male presenting with bilateral foot pain Initial Plan: * Clotrimazole 1% cream 1 applic TOP * Reevaluation Documented by Erin Singleton acting as a scribe for Sumit Fuentes PA-C. All medical record entries made by the Scribe were at my direction and personally dictated by me. I have reviewed the chart and agree that the record accurately reflects my personal performance of the history, physical exam, medical decision making, and the department course for this patient. I have also personally directed, reviewed, and agree with the discharge instructions and disposition. Disposition - Clinical Impression Clinical Impression: Tinea pedis - Patient ED Disposition Is Patient to be Admitted: No - Disposition Referrals: Podiatry Clinic [Outside] Disposition: Routine/Home Disposition Time: 17:50 Condition: STABLE Additional Instructions: Follow up with podiatry clinic for further evaluation. Instructions: Tinea Pedis (ED) Forms: [facility] (Georgian) Print Language: MALTESE
== END 2017-05-23 18:14 | disposition home or self-care (01) ==
LOC: H.ER 15:29
DX: B35.3 Tinea pedis (principal); F32.9 Major depressive disorder, single episode, unspecified; F41.9 Anxiety disorder, unspecified

== ENCOUNTER 2017-06-02 18:11 | Emergency (ER) | payer MEDICAID ==
[2017-06-02 18:58] VITALS: BP 146/81; PULSE 94; RESP 16; TEMP 98.6; O2SAT 96
--- NOTE | 2017-06-02 20:05 | ED PDOC ---
Lower Extremity Pain/Injury Time Seen by Provider: 06/02/17 19:00 Chief Complaint (Nursing): Lower Extremity Problem/Injury Chief Complaint (Provider): Lower Extremity Problem/Injury History Per: Patient History/Exam Limitations: no limitations Onset/Duration Of Symptoms: Days (x2) Current Symptoms Are (Timing): Still Present Additional Complaint(s): 42 year old male with medical history of alcohol abuse, who presents to the emergency department for an evaluation of chronic intermittent numbness and burning sensation to toes bilaterally. Patient was recently discharged from [facility] yesterday with similar symptoms. Denied any fever, chills, trauma, injury, weakness or feet swelling. Patient also admitted drinking 4 beers prior to arrival. PMD: none provided Past Medical History Reviewed: Historical Data, Nursing Documentation, Vital Signs Vital Signs: Last Vital Signs Temp 98.6 F 06/02/17 18:53 Pulse 94 H 06/02/17 18:53 Resp 16 06/02/17 18:53 BP 146/81 06/02/17 18:53 Pulse Ox 96 06/02/17 18:53 - Medical History PMH: Anxiety, Arthritis (b/l ankle), Depression, Fractures (left leg), Seizures (alcohol related) Denies: Chronic Kidney Disease - Family History Family History: States: Unknown Family Hx - Social History Alcohol: > 2 Drinks/Day Drugs: Denies - Immunization History Hx Tetanus Toxoid Vaccination: No Hx Influenza Vaccination: Yes (2017) Hx Pneumococcal Vaccination: No - Home Medications Home Medications: Ambulatory Orders Medication Instructions Recorded No Known Home Med 05/28/17 - Allergies Allergies/Adverse Reactions: Allergies Allergy/AdvReac Type Severity Reaction Status Date / Time No Known Allergies Allergy Verified 06/02/17 18:52 Review of Systems ROS Statement: Except As Marked, All Systems Reviewed And Found Negative Constitutional: Negative for: Fever, Chills Musculoskeletal: Positive for: Foot Pain (chronic toes numbness and burning bilaterally). Negative for: Other (trauma, injury or feet swelling) Neurological: Negative for: Weakness Physical Exam - Reviewed Nursing Documentation Reviewed: Yes Vital Signs Reviewed: Yes - Physical Exam Appears: Positive for: Well, Non-toxic, No Acute Distress Head Exam: Positive for: ATRAUMATIC, NORMAL INSPECTION, NORMOCEPHALIC Cardiovascular/Chest: Positive for: Regular Rate, Rhythm, Chest Non Tender Respiratory: Positive for: Normal Breath Sounds. Negative for: Decreased Breath Sounds, Respiratory Distress Pulses-Dorsalis Pedis (L): 2+ Pulses-Dorsalis Pedis (R): 2+ Gastrointestinal/Abdominal: Positive for: Normal Exam, Soft. Negative for: Tenderness Extremity: Positive for: Normal ROM (lower), Capillary Refill (2+), Other ( decreased sensation in feet bilaterally). 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 On exam, patient is laying in bed comfortably in no acute distress, patient is speaking in full sentences, no tremors noted, able to stand on his own and ambulate with a steady gait. Diagnoses of alcohol intoxication and neuropathy discussed with the patient. Patient is stable for d/c. Advised to follow up with the clinic in 1-2 days without fail. Return to the emergency room at any time for any new or worsening symptoms. Scribe Attestation: Documented by Kathrine Sheriff, acting as a scribe for Marii Alexander PA-C. Provider Scribe Attestation: All medical record entries made by the Scribe were at my direction and personally dictated by me. I have reviewed the chart and agree that the record accurately reflects my personal performance of the history, physical exam, medical decision making, and the department course for this patient. I have also personally directed, reviewed, and agree with the discharge instructions and disposition. 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
== END 2017-06-03 00:11 | disposition home or self-care (01) ==
LOC: H.ER 18:11
DX: F10.129 Alcohol abuse with intoxication, unspecified (principal); F32.9 Major depressive disorder, single episode, unspecified; F41.9 Anxiety disorder, unspecified; G62.9 Polyneuropathy, unspecified

== ENCOUNTER 2017-06-04 18:47 | Emergency (ER) | payer MEDICAID ==
[2017-06-04 19:02] VITALS: BP 112/75; PULSE 109; RESP 18; TEMP 97.7; O2SAT 96
--- NOTE | 2017-06-04 20:03 | ED PDOC ---
Lower Extremity Pain/Injury Time Seen by Provider: 06/04/17 19:19 Chief Complaint (Nursing): Lower Extremity Problem/Injury Chief Complaint (Provider): Left foot pain History Per: Patient History/Exam Limitations: no limitations Onset/Duration Of Symptoms: Days Additional Complaint(s): Patient is a 42 y/o male with a history of chronic alcoholism presenting to the emergency department for acute alcohol intoxication. Admits to drinking today and complains of chronic pain to his left foot, especially to his toes, with associated intermittent numbness. Denies trauma, fever, chills, injuries, or other complaints. PCP: none provided. Past Medical History Reviewed: Historical Data, Nursing Documentation, Vital Signs Vital Signs: Last Vital Signs Temp 97.7 F 06/04/17 18:59 Pulse 109 H 06/04/17 18:59 Resp 18 06/04/17 18:59 BP 112/75 06/04/17 18:59 Pulse Ox 96 06/04/17 18:59 - Medical History PMH: Anxiety, Arthritis (b/l ankle), Depression, Fractures (left leg), Seizures (alcohol related) Denies: Chronic Kidney Disease - Family History Family History: States: Unknown Family Hx - Immunization History Hx Tetanus Toxoid Vaccination: No Hx Influenza Vaccination: Yes (2017) Hx Pneumococcal Vaccination: No - Home Medications Home Medications: Ambulatory Orders Medication Instructions Recorded No Known Home Med 05/28/17 - Allergies Allergies/Adverse Reactions: Allergies Allergy/AdvReac Type Severity Reaction Status Date / Time No Known Allergies Allergy Verified 06/04/17 18:59 Review of Systems ROS Statement: Except As Marked, All Systems Reviewed And Found Negative Constitutional: Negative for: Fever, Chills Musculoskeletal: Positive for: Foot Pain (left, especially at toes) Neurological: Positive for: Numbness (intermittent lower extremity) Physical Exam - Reviewed Nursing Documentation Reviewed: Yes Vital Signs Reviewed: Yes - ECG O2 Sat by Pulse Oximetry: 96 (RA) Pulse Ox Interpretation: Normal Medical Decision Making Medical Decision Making: Time: 20:00 Initial impression: Left foot pain, likely neuropathy, Alcohol abuse Initial plan: Finger stick Reevaluation 20:38 Patient's fingerstick reading is 61 mg/dl. Patient was provided with a tray of food and is eating now. Denies any complaints. Will continue to observe in the ER. On reevaluation, patient reports no complaints at this time. FS 76. On exam, patient is laying in bed comfortably in no acute distress, patient is speaking in full sentences, no tremors noted, able to stand on his own and ambulate with a steady gait. Patient is stable for d/c. Advised to follow up with the clinic in 1-2 days without fail. Return to the emergency room at any time for any new or worsening symptoms. ~ Scribe Attestation: Documented by Velia Lara, acting as a scribe for YU Kuhn. Provider Scribe Attestation: All medical record entries made by the Scribe were at my direction and personally dictated by me. I have reviewed the chart and agree that the record accurately reflects my personal performance of the history, physical exam, medical decision making, and the department course for this patient. I have also personally directed, reviewed, and agree with the discharge instructions and disposition. 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
== END 2017-06-04 23:49 | disposition home or self-care (01) ==
LOC: H.ER 18:47
DX: F10.129 Alcohol abuse with intoxication, unspecified (principal); F32.9 Major depressive disorder, single episode, unspecified; F41.9 Anxiety disorder, unspecified

== ENCOUNTER 2017-06-10 16:40 | Emergency (ER) | payer MEDICAID ==
[2017-06-10 17:18] VITALS: BP 118/80; RESP 18
[2017-06-10 18:56] VITALS: PULSE 99; TEMP 98.6; O2SAT 97
[2017-06-10] MEDS ORDERED: Tmp-Smz 800 mg-160 mg DS Tab PO STA (19:01)
[2017-06-10] MEDS ORDERED: Tmp-Smz 800 mg-160 mg DS Tab ONE (19:29)
--- NOTE | 2017-06-10 20:44 | ED PDOC ---
Lower Extremity Pain/Injury Time Seen by Provider: 06/10/17 17:32 Chief Complaint (Nursing): Lower Extremity Problem/Injury Chief Complaint (Provider): left foot pain History Per: Patient History/Exam Limitations: no limitations Onset/Duration Of Symptoms: Persistent Current Symptoms Are (Timing): Still Present Additional Complaint(s): 42yo male history of chronic foot pain, presents with complaints of worsening left foot pain since a couple days ago, mostly in his left 2nd toe. He also has a history of chronic neuropathy and alcohol abuse. He denies fever, chills, trauma, injuries, weakness or numbness. No other complaints. Past Medical History Reviewed: Historical Data, Nursing Documentation, Vital Signs Vital Signs: Last Vital Signs Temp 98.6 F 06/10/17 18:56 Pulse 99 H 06/10/17 18:56 Resp 18 06/10/17 18:56 BP 118/80 06/10/17 17:17 Pulse Ox 97 06/10/17 18:56 - Medical History PMH: Anxiety, Arthritis (b/l ankle), Depression, Fractures (left leg), Seizures (alcohol related) Denies: Chronic Kidney Disease - Surgical History Surgical History: No Surg Hx - Family History Family History: States: Unknown Family Hx - Immunization History Hx Tetanus Toxoid Vaccination: No Hx Influenza Vaccination: Yes (2016) Hx Pneumococcal Vaccination: No - Home Medications Home Medications: Ambulatory Orders Medication Instructions Recorded Cephalexin [Keflex] 500 mg PO Q6 #28 capsule 06/10/17 - Allergies Allergies/Adverse Reactions: Allergies Allergy/AdvReac Type Severity Reaction Status Date / Time No Known Allergies Allergy Verified 06/06/17 20:00 Review of Systems ROS Statement: Except As Marked, All Systems Reviewed And Found Negative Constitutional: Negative for: Fever, Chills Cardiovascular: Negative for: Chest Pain Respiratory: Negative for: Shortness of Breath Musculoskeletal: Positive for: Foot Pain (bilateral, more on left) Physical Exam - Reviewed Nursing Documentation Reviewed: Yes Vital Signs Reviewed: Yes - Physical Exam Comments: GENERAL APPEARANCE: Patient is awake, alert, oriented x 3, in no acute distress. Alcohol noted on breath. SKIN: Warm, dry; (-) cyanosis. LOWER EXTREMITY: Shallow ulcer, 1 cm wide noted to left 2nd toe; no discharge noted. Mild erytjhema noted to toe; no edema or tenderness. CARDIOVASCULAR: (+) distal pulse. NEUROLOGIC: (+) distal sensation. - ECG O2 Sat by Pulse Oximetry: 97 (RA) Pulse Ox Interpretation: Normal Medical Decision Making Medical Decision Making: impression: Chronic pain, ulcer on foot Plan: -- Observe patient in ER -- Podiatry consult -- Keflex PO -- Bactrim PO -- Tdap IM -- Wound cx sent Consult to podiatry obtained. Case d/w Dr. Alvarado. Patient seen and evaluated by Dr. Alvarado in the ER, she agrees with current management. Wound to the L 2nd toe cleaned and dressed by her. She recommends keflex Rx only and to f/u with podiatry clinic at [facility]. On re-evaluation, patient is AAOx3 in no acute distress, patient able to stand up and ambulate with a normal gait, no tremors noted. Patient feels comfortable being d/c. Verbalize understanding of d/c instructions for outpatient f/u regarding his wound to the L 2nd toe. Scribe Attestation: Documented by Salima Lopez acting as a scribe for YU Kuhn Provider Scribe Attestation: All medical record entries made by the Scribe were at my direction and personally dictated by me. I have reviewed the chart and agree that the record accurately reflects my personal performance of the history, physical exam, medical decision making, and the department course for this patient. I have also personally directed, reviewed, and agree with the discharge instructions and disposition. Disposition - Clinical Impression Clinical Impression: Homeless, Alcohol abuse, Ulcer of toe of left foot, Chronic foot pain - Patient ED Disposition Is Patient to be Admitted: No Counseled Patient/Family Regarding: Diagnosis, Need For Followup, Rx Given - Disposition Disposition: Routine/Home Disposition Time: 00:00 Condition: STABLE Additional Instructions: Take medication as prescribed. Follow up with Dr. Newsome at the [facility] [address] [place] [address] Prescriptions: Cephalexin [Keflex] 500 mg PO Q6 #28 capsule Instructions: Abuse of Alcohol (ED), Acute Wound Care (ED) Forms: [employer] (Macedonian) - PA / CHANNEL MARKETING SPECIALIST / Resident Statement MD/DO has reviewed & agrees with the documentation as recorded.
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
== END 2017-06-10 23:44 | disposition home or self-care (01) ==
LOC: H.ER 16:40
DX: G89.29 Other chronic pain (principal); L97.509 Non-pressure chronic ulcer of other part of unspecified foot with unspecified severity; F10.10 Alcohol abuse, uncomplicated; Z59.0 Homelessness; F41.9 Anxiety disorder, unspecified; F32.9 Major depressive disorder, single episode, unspecified; F17.210 Nicotine dependence, cigarettes, uncomplicated

== ENCOUNTER 2017-06-11 15:55 | Emergency (ER) | payer MEDICAID, OTHER ==
[2017-06-11 16:30] VITALS: BP 133/80; PULSE 82; RESP 18; TEMP 98; O2SAT 98
--- NOTE | 2017-06-11 18:11 | ED PDOC ---
Lower Extremity Pain/Injury Time Seen by Provider: 06/11/17 16:31 Chief Complaint (Nursing): Lower Extremity Problem/Injury Chief Complaint (Provider): Left toe pain History Per: Patient History/Exam Limitations: no limitations Current Symptoms Are (Timing): Still Present Additional Complaint(s): Patient is a 42 year old male who presents to the ER complaining of chronic left second toe pain. Denies any associated trauma. Seen in ED yesterday and he reports no increasing pain or new sensation. Denies fever or chills. PMD: none Past Medical History Reviewed: Historical Data, Nursing Documentation, Vital Signs Vital Signs: Last Vital Signs Temp 98 F 06/11/17 16:25 Pulse 82 06/11/17 16:25 Resp 18 06/11/17 16:25 BP 133/80 06/11/17 16:25 Pulse Ox 98 06/11/17 16:25 - Medical History PMH: Anxiety, Arthritis (b/l ankle), Depression, Fractures (left leg), Seizures (alcohol related) Denies: Chronic Kidney Disease - Family History Family History: States: Unknown Family Hx - Immunization History Hx Tetanus Toxoid Vaccination: No Hx Influenza Vaccination: Yes (2016) Hx Pneumococcal Vaccination: No - Home Medications Home Medications: Ambulatory Orders Medication Instructions Recorded Cephalexin [Keflex] 500 mg PO Q6 #28 capsule 06/10/17 - Allergies Allergies/Adverse Reactions: Allergies Allergy/AdvReac Type Severity Reaction Status Date / Time No Known Allergies Allergy Verified 06/06/17 20:00 Review of Systems ROS Statement: Except As Marked, All Systems Reviewed And Found Negative Constitutional: Negative for: Fever, Chills Musculoskeletal: Positive for: Other (Left toe pain) Physical Exam - Reviewed Nursing Documentation Reviewed: Yes Vital Signs Reviewed: Yes - Physical Exam Appears: Positive for: Non-toxic, No Acute Distress Head Exam: Positive for: ATRAUMATIC, NORMOCEPHALIC Skin: Positive for: Normal Color Eye Exam: Positive for: Normal appearance Pulses-Dorsalis Pedis (L): 2+ Extremity: Positive for: Other (healing shallow ulcer on plantar surface of left 2nd toe, unchanged from previous visit) Neurologic/Psych: Positive for: Alert, Oriented - ECG O2 Sat by Pulse Oximetry: 98 (RA) Pulse Ox Interpretation: Normal Medical Decision Making Medical Decision Making: Time: 16:50 Initial Plan: Patient was prescribed Keflex yesterday. Advised to continue antibiotics and wound care as instructed. Patient will follow up with Podiatry Clinic. Scribe Attestation: Documented by Ana Khan, acting as a scribe for Sumit Fuentes PA-C Provider Scribe Attestation: All medical record entries made by the Scribe were at my direction and personally dictated by me. I have reviewed the chart and agree that the record accurately reflects my personal performance of the history, physical exam, medical decision making, and the department course for this patient. I have also personally directed, reviewed, and agree with the discharge instructions and disposition. Disposition - Clinical Impression Clinical Impression: Chronic wound of extremity - Patient ED Disposition Is Patient to be Admitted: No Counseled Patient/Family Regarding: Diagnosis, Need For Followup - Disposition Referrals: Podiatry Clinic [Outside] Disposition: Routine/Home Disposition Time: 18:36 Condition: STABLE Instructions: Acute Wound Care (ED) Forms: [employer] (Bengali) Print Language: NAURUAN
== END 2017-06-11 18:37 | disposition home or self-care (01) ==
LOC: H.ER 15:55
DX: L97.902 Non-pressure chronic ulcer of unspecified part of unspecified lower leg with fat layer exposed (principal); F32.9 Major depressive disorder, single episode, unspecified; F41.9 Anxiety disorder, unspecified

== ENCOUNTER 2017-06-12 13:59 | Emergency (ER) | payer OTHER ==
[2017-06-12 14:06] VITALS: BP 152/75; PULSE 105; RESP 20; TEMP 97; O2SAT 98
--- NOTE | 2017-06-12 15:57 | ED PDOC ---
Lower Extremity Pain/Injury Time Seen by Provider: 06/12/17 15:19 Chief Complaint (Nursing): Lower Extremity Problem/Injury Chief Complaint (Provider): Left toe pain History Per: Patient History/Exam Limitations: no limitations Current Symptoms Are (Timing): Still Present Additional Complaint(s): Patient is a chronic alcoholic, presenting to the ER complaining of pain to the left second toe. States he lost the prescription for antibiotic he was given 2 days ago. Last received dose of antibiotic in the ER 2 days ago. Otherwise: (-) fever, (-) chills, (-) discharge or other complaints at this time. PMD: None Past Medical History Reviewed: Historical Data, Nursing Documentation, Vital Signs Vital Signs: Last Vital Signs Temp 97.0 F L 06/12/17 14:03 Pulse 105 H 06/12/17 14:03 Resp 20 06/12/17 14:03 BP 152/75 H 06/12/17 14:03 Pulse Ox 98 06/12/17 14:03 - Medical History PMH: Anxiety, Arthritis (b/l ankle), Depression, Fractures (left leg), Seizures (alcohol related) Denies: Chronic Kidney Disease - Family History Family History: States: Unknown Family Hx - Social History Alcohol: > 2 Drinks/Day - Immunization History Hx Tetanus Toxoid Vaccination: No Hx Influenza Vaccination: Yes (2016) Hx Pneumococcal Vaccination: No - Home Medications Home Medications: Ambulatory Orders Medication Instructions Recorded Cephalexin [Keflex] 500 mg PO Q6 #28 capsule 06/10/17 Cephalexin [Keflex] 500 mg PO Q6 #28 capsule 06/12/17 - Allergies Allergies/Adverse Reactions: Allergies Allergy/AdvReac Type Severity Reaction Status Date / Time No Known Allergies Allergy Verified 06/12/17 21:55 Review of Systems ROS Statement: Except As Marked, All Systems Reviewed And Found Negative Constitutional: Negative for: Fever, Chills Musculoskeletal: Positive for: Other (left toe pain, no discharge) Physical Exam - Reviewed Nursing Documentation Reviewed: Yes Vital Signs Reviewed: Yes - Physical Exam Comments: GENERAL APPEARANCE: Patient is awake, alert, oriented x 3, in no acute distress. SKIN: Warm, dry; (-) cyanosis. LOWER EXTREMITY: Ulcer to the volar aspect of left second toe is healing, (-) discharge, (-) erythema, (-) edema. Cap refill: less than 2 sec. CARDIOVASCULAR: (+) distal pulse. NEUROLOGIC: (+) distal sensation. - ECG O2 Sat by Pulse Oximetry: 98 (RA) Pulse Ox Interpretation: Normal Medical Decision Making Medical Decision Making: Time: 15:39 Plan: * Keflex 500mg x1 given in ER Based on history and exam, plan will be to discharge patient with new prescription for antibiotic. Advised to go immediately to pharmacy to fill prescription. Patient is to follow up with the podiatry clinic without fail. Advised to take medication as prescribed. Return to the emergency room at any time for any new or worsening symptoms. Patient states he fully agrees with and understands discharge instructions. States that he agrees with the plan and disposition. Verbalized and repeated discharge instructions and plan. I have given the patient opportunity to ask any additional questions. Scribe Attestation: Documented by Ana Khan, acting as a scribe for Marii Alexander PA-C Provider Scribe Attestation: All medical record entries made by the Scribe were at my direction and personally dictated by me. I have reviewed the chart and agree that the record accurately reflects my personal performance of the history, physical exam, medical decision making, and the department course for this patient. I have also personally directed, reviewed, and agree with the discharge instructions and disposition. Disposition - Clinical Impression Clinical Impression: Ulcer of toe of left foot, Chronic wound of extremity, Homeless, Alcoholism - Patient ED Disposition Is Patient to be Admitted: No Counseled Patient/Family Regarding: Diagnosis, Need For Followup, Rx Given - Disposition Disposition: Routine/Home Disposition Time: 15:41 Condition: STABLE Additional Instructions: Take medication as prescribed. Follow up with Dr. Newsome at the [facility] [address] [place] [address] Prescriptions: Cephalexin [Keflex] 500 mg PO Q6 #28 capsule Instructions: Abuse of Alcohol (ED), Acute Wound Care (ED) Forms: [employer] (Macedonian) - POA Present On Arrival: None - PA / HURRICANE TRACKER / Resident Statement MD/DO has reviewed & agrees with the documentation as recorded.
== END 2017-06-12 18:08 | disposition home or self-care (01) ==
LOC: H.ER 13:59
DX: L97.521 Non-pressure chronic ulcer of other part of left foot limited to breakdown of skin (principal); F10.20 Alcohol dependence, uncomplicated; F32.9 Major depressive disorder, single episode, unspecified; F41.9 Anxiety disorder, unspecified; Z59.0 Homelessness

== ENCOUNTER 2017-06-12 21:54 | Emergency (ER) | payer OTHER ==
[2017-06-12 22:31] VITALS: BP 116/67; PULSE 106; RESP 18; TEMP 97.8; O2SAT 100
--- NOTE | 2017-06-13 00:51 | ED PDOC ---
HPI: Psych/Substance Abuse Time Seen by Provider: 06/12/17 22:48 Chief Complaint (Nursing): Alcohol Ingestion Chief Complaint (Provider): alcohol ingestion History Per: Patient (42 y/o male undomiciled noted intoxicated and brought to ED by EMS for evaluation. Patient denies any complaints.) Past Medical History Reviewed: Historical Data, Nursing Documentation, Vital Signs Vital Signs: Last Vital Signs Temp 97.8 F 06/12/17 21:56 Pulse 106 H 06/12/17 21:56 Resp 18 06/12/17 21:56 BP 116/67 06/12/17 21:56 Pulse Ox 100 06/12/17 21:56 - Medical History PMH: Anxiety, Arthritis (b/l ankle), Depression, Fractures (left leg), Seizures (alcohol related) Denies: Chronic Kidney Disease - Family History Family History: States: Unknown Family Hx - Immunization History Hx Tetanus Toxoid Vaccination: No Hx Influenza Vaccination: Yes (2016) Hx Pneumococcal Vaccination: No - Home Medications Home Medications: Ambulatory Orders Medication Instructions Recorded Cephalexin [Keflex] 500 mg PO Q6 #28 capsule 06/10/17 Cephalexin [Keflex] 500 mg PO Q6 #28 capsule 06/12/17 - Allergies Allergies/Adverse Reactions: Allergies Allergy/AdvReac Type Severity Reaction Status Date / Time No Known Allergies Allergy Verified 06/12/17 21:55 Review of Systems ROS Statement: Except As Marked, All Systems Reviewed And Found Negative Physical Exam - Reviewed Nursing Documentation Reviewed: Yes Vital Signs Reviewed: Yes - Physical Exam Appears: Positive for: Well, Non-toxic, No Acute Distress Head Exam: Positive for: ATRAUMATIC, NORMAL INSPECTION, NORMOCEPHALIC Skin: Positive for: Normal Color, Warm, DRY Eye Exam: Positive for: EOMI, Normal appearance, PERRL ENT: Positive for: Normal ENT Inspection Neck: Positive for: Normal, Painless ROM Cardiovascular/Chest: Positive for: Regular Rate, Rhythm Respiratory: Positive for: CNT, Normal Breath Sounds Gastrointestinal/Abdominal: Positive for: Normal Exam, Bowel Sounds, Soft Back: Positive for: Normal Inspection Extremity: Positive for: Normal ROM Neurologic/Psych: Positive for: Alert, Oriented - ECG O2 Sat by Pulse Oximetry: 100 - Progress ED Course And Treament: NOTED WITH STEADY GAIT IN ED. Disposition - Clinical Impression Clinical Impression: Alcohol ingestion - Patient ED Disposition Is Patient to be Admitted: No - Disposition Disposition: Routine/Home Disposition Time: 00:50 Condition: FAIR Instructions: Alcohol Intoxication (DC) Forms: [employer] (Kenyan)
[2017-06-13 06:21] VITALS: BMI 20.9
== END 2017-06-13 06:20 | disposition home or self-care (01) ==
LOC: H.ER 21:54
DX: F10.129 Alcohol abuse with intoxication, unspecified (principal); F32.9 Major depressive disorder, single episode, unspecified; F41.9 Anxiety disorder, unspecified

== ENCOUNTER 2017-06-25 21:31 | Emergency (ER) | payer MEDICAID, OTHER ==
[2017-06-25 21:34] VITALS: BP 145/82; PULSE 98; RESP 18; TEMP 98.1; O2SAT 100
[2017-06-25] MEDS ORDERED: Povidone Iodine Topical 10% Sol ONE (22:36)
--- NOTE | 2017-06-26 01:35 | ED PDOC ---
HPI: Psych/Substance Abuse Time Seen by Provider: 06/25/17 21:43 Chief Complaint (Nursing): Lower Extremity Problem/Injury Chief Complaint (Provider): Clearance History Per: Patient History/Exam Limitations: no limitations Current Symptoms Are (Timing): Still Present Suicide/Self Injury Attempted (Context): None Modifying Factor(s): None Involuntary Hold By: Local Law Enforcement Additional Complaint(s): 42 year old male presents to ED under [place] police custody for medical and psychiatric clearance. Patient presents with complaints of chronic bilateral foot pain. Denies trauma, injury, and all other complaints. (-) suicidal ideation, homicidal ideation. PCP: None Past Medical History Reviewed: Historical Data, Nursing Documentation, Vital Signs Vital Signs: Last Vital Signs Temp 98.1 F 06/25/17 21:32 Pulse 98 H 06/25/17 21:32 Resp 18 06/25/17 21:32 BP 145/82 06/25/17 21:32 Pulse Ox 100 06/25/17 21:32 - Medical History PMH: Anxiety, Arthritis (b/l ankle), Depression, Fractures (left leg), Seizures (alcohol related) Denies: Diabetes, Hepatitis, HIV, HTN, Chronic Kidney Disease, Sexually Transmitted Disease - Family History Family History: States: Unknown Family Hx - Social History Current smoker - smoking cessation education provided: Yes Ex-Smoker (has not smoked in the last 12 months): No Drugs: Denies - Immunization History Hx Tetanus Toxoid Vaccination: No Hx Influenza Vaccination: Yes (2016) Hx Pneumococcal Vaccination: No - Home Medications Home Medications: Ambulatory Orders Medication Instructions Recorded Cephalexin [Keflex] 500 mg PO Q6 #28 capsule 06/25/17 - Allergies Allergies/Adverse Reactions: Allergies Allergy/AdvReac Type Severity Reaction Status Date / Time No Known Allergies Allergy Verified 06/19/17 20:33 Review of Systems ROS Statement: Except As Marked, All Systems Reviewed And Found Negative Musculoskeletal: Positive for: Foot Pain (chronic bilateral foot pain) Psych: Negative for: Suicidal ideation, Other ((-) homicidal ideation) Physical Exam - Reviewed Nursing Documentation Reviewed: Yes Vital Signs Reviewed: Yes - Physical Exam Appears: Positive for: Non-toxic, No Acute Distress (ill-kempt) Skin: Positive for: Normal Color, Warm, Dry Eye Exam: Positive for: Normal appearance, EOMI, PERRL ENT: Positive for: Normal ENT Inspection Neck: Positive for: Normal, Painless ROM, Supple Cardiovascular/Chest: Positive for: Regular Rate, Rhythm. Negative for: Murmur Respiratory: Positive for: Normal Breath Sounds. Negative for: Respiratory Distress Pulses-Dorsalis Pedis (L): 2+ Pulses-Dorsalis Pedis (R): 2+ Gastrointestinal/Abdominal: Positive for: Normal Exam, Soft. Negative for: Tenderness Back: Positive for: Normal Inspection Extremity: Positive for: Normal ROM, Capillary Refill (<2 sconds), Other ((+) bilateral venous stasis, mild erythema of dorsal distal aspect of left foot, hyperpigmentation of left second toe, 1cm shallow ulcer to distal tip of left second toe, 0.5cm superficial ulcer to dorsal medial aspect of right foot. (-) discharge). Negative for: Deformity Neurologic/Psych: Positive for: Alert, Oriented. Negative for: Motor/Sensory Deficits - ECG O2 Sat by Pulse Oximetry: 100 (RA) Pulse Ox Interpretation: Normal Medical Decision Making Medical Decision Makin Initial plan: * Wound care * Keflex 500mg PO * Re-eval Keflex given, feet cleansed and dressing applied to ulcers. Patient was given fresh socks. Advised to follow up with podiatry clinic. Prescription of Keflex also given to patient. Patient is otherwise medically cleared. Patient seen and evaluated by crisis. Deemed clear for psychiatric outpatient follow up as per Dr. Pineda. Patient is medically and psychiatrically cleared for incarceration. Patient discharged under the care of local police. Scribe Attestation: Documented by Racquel Hammonds acting as a scribe for Marii Alexander PA-C. MD Scribe Attestation: All medical record entries made by the Scribe were at my direction and personally dictated by me. I have reviewed the chart and agree that the record accurately reflects my personal performance of the history, physical exam, medical decision making, and the department course for this patient. I have also personally directed, reviewed, and agree with the discharge instructions and disposition. Disposition - Clinical Impression Clinical Impression: Depression, Alcohol abuse, Toe ulcer - Patient ED Disposition Is Patient to be Admitted: No Counseled Patient/Family Regarding: Diagnosis, Need For Followup, Rx Given - Disposition Referrals: Podiatry Clinic [Outside] Disposition: Routine/Home Disposition Time: 23:00 Condition: STABLE Additional Instructions: Patient is medically and psychiatrically cleared for incarceration. Take medication as prescribed. Prescriptions: Cephalexin [Keflex] 500 mg PO Q6 #28 capsule Instructions: Depression, Wound Care (DC), Alcohol Abuse and Alcoholism (DC) Forms: [employer] (Yakut) - PA / SENIOR CORE JAVA DEVELOPER / Resident Statement MD/DO has reviewed & agrees with the documentation as recorded.
== END 2017-06-25 23:26 ==
LOC: H.ER 21:31
DX: F32.9 Major depressive disorder, single episode, unspecified; F10.10 Alcohol abuse, uncomplicated; L97.509 Non-pressure chronic ulcer of other part of unspecified foot with unspecified severity

== ENCOUNTER 2017-10-21 15:56 | Emergency (ER) | payer OTHER ==
[2017-10-21 16:02] VITALS: O2SAT 100
--- NOTE | 2017-10-21 22:08 | ED PDOC ---
HPI: Psych/Substance Abuse Time Seen by Provider: 10/21/17 16:31 Chief Complaint (Nursing): Alcohol Ingestion Chief Complaint (Provider): intoxication and si ED Caveat: Intoxicated, Uncooperative History Per: Patient History/Exam Limitations: no limitations Onset/Duration Of Symptoms: Days Modifying Factor(s): Alcohol Associated Symptoms: Suicidal Thoughts Additional Complaint(s): 40 year old undomiciled male presents to the ED for alcohol intoxication. Patient is uncooperative and states he wants to hurt himself. Also is requesting for food. PMD: No Family Provider Past Medical History Reviewed: Historical Data, Nursing Documentation, Vital Signs Vital Signs: Last Vital Signs Temp 98.1 F 10/21/17 15:58 Pulse 74 10/21/17 15:58 Resp 16 10/21/17 15:58 BP 132/84 10/21/17 15:58 Pulse Ox 100 10/21/17 15:58 - Medical History PMH: Anxiety, Arthritis (b/l ankle), Depression, Fractures (left leg), Seizures (alcohol related) Denies: Diabetes, Hepatitis, HIV, HTN, Chronic Kidney Disease, Sexually Transmitted Disease - Surgical History Surgical History: Denies: Appendectomy - Family History Family History: States: Unknown Family Hx - Immunization History Hx Tetanus Toxoid Vaccination: No Hx Influenza Vaccination: Yes (2016) Hx Pneumococcal Vaccination: Yes - Home Medications Home Medications: Ambulatory Orders Medication Instructions Recorded Cephalexin [cephalexin] 500 mg PO BID #20 cap 07/24/17 - Allergies Allergies/Adverse Reactions: Allergies Allergy/AdvReac Type Severity Reaction Status Date / Time No Known Allergies Allergy Verified 09/24/17 13:09 Review of Systems ROS Statement: Except As Marked, All Systems Reviewed And Found Negative Psych: Positive for: Suicidal ideation Physical Exam - Reviewed Nursing Documentation Reviewed: Yes Vital Signs Reviewed: Yes - Physical Exam Appears: Positive for: Well, Non-toxic, No Acute Distress Head Exam: Positive for: ATRAUMATIC, NORMAL INSPECTION, NORMOCEPHALIC Skin: Positive for: Normal Color, Warm, Dry Neck: Positive for: Normal, Painless ROM, Supple. Negative for: Decreased ROM Cardiovascular/Chest: Positive for: Regular Rate, Rhythm Respiratory: Positive for: Normal Breath Sounds Pulses-Carotid (L): 2+ Pulses-Carotid (R): 2+ Pulses-Radial (L): 2+ Pulses-Radial (R): 2+ Neurologic/Psych: Positive for: Alert, Oriented (x3) - ECG O2 Sat by Pulse Oximetry: 100 (RA) Pulse Ox Interpretation: Normal Medical Decision Making Medical Decision Making: Time: 1630 Initial impression: alcohol intoxication Initial plan: --Reevaluation -pt advised that he had SI on reeval; crisis screened and discharged Scribe Attestation: Documented by Elizabeth Gallagher, acting as a scribe for Ge Quiroz PA-C. Provider Scribe Attestation: All medical record entries made by the Scribe were at my direction and personally dictated by me. I have reviewed the chart and agree that the record accurately reflects my personal performance of the history, physical exam, medical decision making, and the department course for this patient. I have also personally directed, reviewed, and agree with the discharge instructions and disposition. Disposition - Clinical Impression Clinical Impression: Alcohol abuse with alcohol-induced disorder, Alcohol intoxication - Patient ED Disposition Is Patient to be Admitted: No Discussed With : Andrew Ovalles Doctor Will See Patient In The: Office Counseled Patient/Family Regarding: Diagnosis, Need For Followup, Smoking Cessation - Disposition Referrals: Alcoholics Anonymous [Outside] [facility] [Outside] Disposition: Routine/Home Disposition Time: 22:42 Condition: STABLE Instructions: Alcohol Abuse and Alcoholism (DC) Forms: [employer] (Kinyarwanda)
[2017-10-21 23:20] VITALS: BP 128/72; PULSE 88; RESP 18; TEMP 98
== END 2017-10-21 23:19 | disposition home or self-care (01) ==
LOC: H.ER 15:56
DX: F10.129 Alcohol abuse with intoxication, unspecified (principal); F32.9 Major depressive disorder, single episode, unspecified; F41.9 Anxiety disorder, unspecified

== ENCOUNTER 2017-12-17 17:50 | Emergency (ER) | payer OTHER ==
[2017-12-17 17:53] VITALS: TEMP 98.2
[2017-12-17 17:54] VITALS: BMI 25.8
--- NOTE | 2017-12-17 18:50 | ED PDOC ---
HPI: Psych/Substance Abuse Time Seen by Provider: 12/17/17 18:00 Chief Complaint (Nursing): Alcohol Ingestion Chief Complaint (Provider): Alcohol ingestion ED Caveat: Intoxicated History Per: EMS History/Exam Limitations: intoxication Onset/Duration Of Symptoms: Unknown Additional Complaint(s): 42yo male, history of anxiety, alcohol related seizures, alcohol abuse, brought to ER by EMS after he was noted to be publicly intoxicated. Patient unable to provide history due to his intoxicated state. No obvious signs of trauma noted. Past Medical History Reviewed: Historical Data, Nursing Documentation, Vital Signs Vital Signs: Last Vital Signs Temp 98.2 F 12/17/17 17:52 Pulse 90 12/17/17 17:52 Resp 16 12/17/17 17:52 BP 128/72 12/17/17 17:52 Pulse Ox 98 12/17/17 17:52 - Medical History PMH: Anxiety, Arthritis (b/l ankle), Depression, Fractures (left leg), Seizures (alcohol related) Denies: Diabetes, Hepatitis, HIV, HTN, Chronic Kidney Disease, Sexually Transmitted Disease - Surgical History Surgical History: Denies: Appendectomy - Family History Family History: States: No Known Family Hx - Immunization History Hx Tetanus Toxoid Vaccination: No Hx Influenza Vaccination: Yes (2017) Hx Pneumococcal Vaccination: Yes - Home Medications Home Medications: Ambulatory Orders Medication Instructions Recorded No Known Home Med 11/29/17 - Allergies Allergies/Adverse Reactions: Allergies Allergy/AdvReac Type Severity Reaction Status Date / Time No Known Allergies Allergy Verified 12/17/17 17:54 Review of Systems Review Of Systems: ROS cannot be obtained secondary to pt's inabilty to answer questions. (alcohol intoxication) Physical Exam - Reviewed Nursing Documentation Reviewed: Yes Vital Signs Reviewed: Yes - Physical Exam Appears: Positive for: No Acute Distress Head Exam: Positive for: ATRAUMATIC, NORMAL INSPECTION, NORMOCEPHALIC Skin: Positive for: Normal Color ENT: Positive for: Other (alcohol on breath) Neck: Positive for: Normal Cardiovascular/Chest: Positive for: Regular Rate, Rhythm Respiratory: Positive for: Normal Breath Sounds Gastrointestinal/Abdominal: Positive for: Soft Extremity: Positive for: Normal ROM Neurologic/Psych: Positive for: Alert - ECG O2 Sat by Pulse Oximetry: 98 (RA) Pulse Ox Interpretation: Normal Medical Decision Making Medical Decision Making: Impression: Alcohol intoxication Plan: -- CT Head w/o contrast -- Alcohol Serum -- UDS [address] Patient signed out to Dr. Higgins pending reassessment, clinical sobriety. Scribe Attestation: Documented by Salima Lopez, acting as a scribe for Reynaldo Topete MD. Provider Scribe Attestation: All medical record entries made by the Scribe were at my direction and personally dictated by me. I have reviewed the chart and agree that the record accurately reflects my personal performance of the history, physical exam, medical decision making, and the department course for this patient. I have also personally directed, reviewed, and agree with the discharge instructions and disposition. Disposition - Clinical Impression Clinical Impression: Alcohol intoxication - Patient ED Disposition Is Patient to be Admitted: Transfer of Care - Disposition Disposition: Transfer of Care Disposition Time: 19:00 Condition: STABLE Instructions: Alcohol Abuse and Alcoholism (DC) Forms: [employer] (Serbian)
--- NOTE | 2017-12-17 20:06 | ED PDOC ---
- ECG O2 Sat by Pulse Oximetry: 98 (RA) Pulse Ox Interpretation: Normal Medical Decision Making Medical Decision Makin Patient signed out to me by Dr. Topete pending sobriety, reevaluation. 2053 CT Head FINDINGS: Brain: No intracranial hemorrhage. There is global parenchymal volume loss. Periventricular hypoattenuation is likely due to small vessel disease. No evidence of evolved territorial infarct or cerebral edema. No mass effect or midline shift. Ventricles: Prominent ventricles secondary to volume loss. Bones/joints: Chronic appearing left nasal bone fracture. No calvarial fracture. Soft tissues: Right frontal soft tissue swelling. Sinuses: Mild mucosal thickening of the maxillary sinuses. No air-fluid levels. Mastoid air cells: Unremarkable as visualized. No mastoid effusion. IMPRESSION: 1. No acute intracranial findings. 2. Chronic appearing left nasal bone fracture 2109 Patient awake, alert and oriented x 3 with steady gait. Patient noted to be clinically sober and is stable for discharge home. Scribe Attestation: Documented by Salima Lopez, acting as a scribe for Franck Higgins MD. Provider Scribe Attestation: All medical record entries made by the Scribe were at my direction and personally dictated by me. I have reviewed the chart and agree that the record accurately reflects my personal performance of the history, physical exam, medical decision making, and the department course for this patient. I have also personally directed, reviewed, and agree with the discharge instructions and disposition. Disposition - Clinical Impression Clinical Impression: Alcohol intoxication - POA Present On Arrival: None - Disposition Disposition: Routine/Home Disposition Time: 21:10 Condition: STABLE Instructions: Alcohol Abuse and Alcoholism (DC) Forms: [employer] (Bulgarian)
[2017-12-17 20:57] LABS: BARBITURATES, UR NEGATIVE (NEGATIVE); BENZODIAZEPINES, UR NEGATIVE (NEGATIVE); OPIATES, UR NEGATIVE (NEGATIVE); PHENCYCLIDINE, UR NEGATIVE (NEGATIVE)
[2017-12-17 21:46] VITALS: BP 126/70; PULSE 86; RESP 17
--- NOTE | 2017-12-18 10:18 | CT ---
Date of service: 12/17/2017 PROCEDURE: CT HEAD WITHOUT CONTRAST. HISTORY: etoh COMPARISON: Noncontrast head CT 05/12/2017. TECHNIQUE: Axial computed tomography images were obtained through the head/brain without intravenous contrast. Radiation dose: Total exam DLP = 1020.67 mGy-cm. This CT exam was performed using one or more of the following dose reduction techniques: Automated exposure control, adjustment of the mA and/or kV according to patient size, and/or use of iterative reconstruction technique. FINDINGS: HEMORRHAGE: No intracranial hemorrhage. BRAIN: Mild diffuse cerebral atrophy is appreciated which this young patient could be a function of viral encephalopathy (HIV) and others. Clinically correlate. The pattern is stable in the interval. Further, stable limited subcortical white matter lucency is again identified as well as of the periventricular white matter. This too is abnormal for this patient and is similar to that seen in chronic microangiopathy in elderly patients. There is no interval mass effect appreciated. Follow-up MRI can be utilized for further characterization as clinically warranted. VENTRICLES: Unremarkable. No hydrocephalus. CALVARIUM: Unremarkable. Potential chronic nasal bone fracture appreciated however. PARANASAL SINUSES: Unremarkable as visualized. No significant inflammatory changes. MASTOID AIR CELLS: Unremarkable as visualized. No inflammatory changes. OTHER FINDINGS: None. IMPRESSION: No definite interval acute findings although pattern atrophy and white matter changes appreciated diffusely throughout the cerebrum as distinct abnormal findings in this patient. The pattern is not significantly changed compared to prior head CT 05/12/2017. Please see discussion above. Follow-up MRI available as clinically warranted. Likely chronic nasal bone fracture identified.
[2017-12-20 20:41] VITALS: O2SAT 98
== END 2017-12-17 21:21 | disposition home or self-care (01) ==
LOC: H.ER 17:50
DX: F10.129 Alcohol abuse with intoxication, unspecified (principal); R56.9 Unspecified convulsions; F41.9 Anxiety disorder, unspecified; F32.9 Major depressive disorder, single episode, unspecified

== ENCOUNTER 2018-03-02 22:50 | Emergency (ER) | payer OTHER ==
[2018-03-02 22:50] VITALS: BMI 25.8
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
[2018-03-03] MEDS: Naproxen 500 MG TAB PO ONE (00:45)
[2018-03-03] MEDS ORDERED: Naproxen 500 MG TAB PO ONE (00:48)
[2018-03-03 10:41] VITALS: BP 123/58; PULSE 94; RESP 18; TEMP 98.8; O2SAT 100
== END 2018-03-03 01:40 ==
LOC: H.ER 22:50
DX: F10.10 Alcohol abuse, uncomplicated (principal); M25.561 Pain in right knee; M25.562 Pain in left knee; F17.210 Nicotine dependence, cigarettes, uncomplicated; F32.9 Major depressive disorder, single episode, unspecified; F41.9 Anxiety disorder, unspecified

== ENCOUNTER 2018-03-13 20:58 | Emergency (ER) | payer OTHER ==
[2018-03-13 20:58] VITALS: BMI 25.8
[2018-03-13 21:06] VITALS: BP 144/68; PULSE 94; RESP 16; TEMP 97.4; O2SAT 97
--- NOTE | 2018-03-13 23:51 | ED PDOC ---
HPI: Psych/Substance Abuse Time Seen by Provider: 03/13/18 21:26 Chief Complaint (Nursing): Alcohol Ingestion Chief Complaint (Provider): Alcohol abuse History Per: Patient History/Exam Limitations: no limitations Onset/Duration Of Symptoms: Days Current Symptoms Are (Timing): Still Present Modifying Factor(s): Alcohol Additional Complaint(s): 42 yo male brought in by EMS for evaluation. Pt was found outside sleeping and police called EMS to bring patient to the ER. Denies complaint. Asking for food. Pt reports drinking alcohol daily. Past Medical History Reviewed: Historical Data, Nursing Documentation, Vital Signs Vital Signs: Last Vital Signs Temp 97.4 F L 03/13/18 21:04 Pulse 94 H 03/13/18 21:04 Resp 16 03/13/18 21:04 BP 144/68 03/13/18 21:04 Pulse Ox 97 03/13/18 21:04 - Medical History PMH: Anxiety, Arthritis (b/l ankle), Depression, Fractures (left leg), Seizures (alcohol related) Denies: Diabetes, Hepatitis, HIV, HTN, Chronic Kidney Disease, Sexually Transmitted Disease - Surgical History Surgical History: Denies: Appendectomy - Family History Family History: States: No Known Family Hx - Living Arrangements Living Arrangements: With Family - Immunization History Hx Tetanus Toxoid Vaccination: No Hx Influenza Vaccination: Yes (2016) Hx Pneumococcal Vaccination: Yes - Home Medications Home Medications: Ambulatory Orders Medication Instructions Recorded RX: No Known Home Med 11/29/17 - Allergies Allergies/Adverse Reactions: Allergies Allergy/AdvReac Type Severity Reaction Status Date / Time No Known Allergies Allergy Verified 12/17/17 17:54 Review of Systems ROS Statement: Except As Marked, All Systems Reviewed And Found Negative Constitutional: Negative for: Fever, Chills Respiratory: Negative for: Cough, Shortness of Breath Gastrointestinal: Negative for: Nausea, Vomiting, Abdominal Pain Genitourinary Male: Negative for: Dysuria, Frequency Skin: Negative for: Rash Physical Exam - Reviewed Nursing Documentation Reviewed: Yes Vital Signs Reviewed: Yes - Physical Exam Appears: Positive for: Well, Non-toxic, No Acute Distress Head Exam: Positive for: ATRAUMATIC, NORMAL INSPECTION, NORMOCEPHALIC Skin: Positive for: Normal Color, Warm, DRY Eye Exam: Positive for: Normal appearance ENT: Positive for: Normal ENT Inspection Neck: Positive for: Normal, Painless ROM Cardiovascular/Chest: Positive for: Regular Rate, Rhythm Respiratory: Positive for: CNT, Normal Breath Sounds Gastrointestinal/Abdominal: Positive for: Normal Exam, Soft Back: Positive for: Normal Inspection Extremity: Positive for: Normal ROM Neurologic/Psych: Positive for: Alert, Oriented - ECG O2 Sat by Pulse Oximetry: 97 Medical Decision Making Medical Decision Making: Tolerated food in ER Disposition - Clinical Impression Clinical Impression: Alcohol use - Patient ED Disposition Is Patient to be Admitted: No Counseled Patient/Family Regarding: Diagnosis - Disposition Referrals: [facility] [Outside] Disposition: Routine/Home Disposition Time: 23:52 Condition: GOOD Instructions: Alcohol Use - When Is Drinking a Problem? Forms: [facility] (Bulgarian) Print Language: AZERBAIJANI
== END 2018-03-14 00:18 | disposition home or self-care (01) ==
LOC: H.ER 20:58
DX: F10.10 Alcohol abuse, uncomplicated (principal); Z86.59 Personal history of other mental and behavioral disorders

== ENCOUNTER 2018-06-21 14:23 | Inpatient (IN) | payer MEDICAID, OTHER ==
[2018-06-21 14:23] VITALS: BMI 25.8
[2018-06-21 14:27] VITALS: RESP 18
[2018-06-21 16:33] LABS: BARBITURATES, UR NEGATIVE (NEGATIVE); BENZODIAZEPINES, UR NEGATIVE (NEGATIVE); OPIATES, UR NEGATIVE (NEGATIVE); PHENCYCLIDINE, UR NEGATIVE (NEGATIVE)
--- NOTE | 2018-06-21 16:59 | ED PDOC ---
HPI: Psych/Substance Abuse Time Seen by Provider: 06/21/18 14:51 Chief Complaint (Nursing): Psychiatric Evaluation Chief Complaint (Provider): psych evaluation History Per: Patient Additional Complaint(s): 43 y/o Male alcohol abuser with hx of osteomyelitis of Left 4th toe requiring amputation recently who was BIBA to ED for suicidal ideations with auditory hallucinations. Pt was found by bystanders to be knocking on several doors. Patient admits to drinking 1/2 pint of vodka and several beers today. States that he has been hearing a woman's voice telling him that he "should do it again" but does not state what to do. Patient states that he feels that she is telling him to kill himself as he has attempted this in the past in the . Denies HI or visual hallucinations. Past Medical History Reviewed: Historical Data, Nursing Documentation, Vital Signs Vital Signs: Last Vital Signs Temp 97.3 F L 06/21/18 14:26 Pulse 99 H 06/21/18 14:26 Resp 18 06/21/18 14:26 BP 130/83 06/21/18 14:26 Pulse Ox 100 06/21/18 14:26 - Medical History PMH: Anxiety, Arthritis, Depression, Fractures (left leg), Seizures (alcohol related) Denies: Diabetes, Hepatitis, HIV, HTN, Chronic Kidney Disease, Sexually Transmitted Disease - Surgical History Surgical History: Denies: Appendectomy - Family History Family History: States: Unknown Family Hx - Immunization History Hx Tetanus Toxoid Vaccination: No Hx Influenza Vaccination: Yes (2016) Hx Pneumococcal Vaccination: Yes - Home Medications Home Medications: Ambulatory Orders Medication Instructions Recorded Multivitamin [Multi-Vitamin Daily] 1 each PO DAILY #30 tablet 06/15/18 - Allergies Allergies/Adverse Reactions: Allergies Allergy/AdvReac Type Severity Reaction Status Date / Time No Known Allergies Allergy Verified 06/21/18 14:28 Review of Systems Constitutional: Negative for: Fever, Chills Musculoskeletal: Negative for: Foot Pain Psych: Positive for: Depression, Suicidal ideation Physical Exam - Reviewed Nursing Documentation Reviewed: Yes Vital Signs Reviewed: Yes - Physical Exam Appears: Positive for: Non-toxic Eye Exam: Positive for: Conjunctival injection (mild b/l) Neck: Positive for: Normal Cardiovascular/Chest: Positive for: Regular Rate, Rhythm Extremity: Positive for: Other (Left 2nd digit toe amputation with [address], no erythema/edema/drainage. No tenderness. ) Neurologic/Psych: Positive for: Alert, Oriented, Mood/Affect (appropriate) - Laboratory Results Result Diagrams: 06/21/18 19:25 06/21/18 19:30 - ECG O2 Sat by Pulse Oximetry: 100 Medical Decision Making Medical Decision Making: ACCucheck Serum ETOH urine drug screen 1:1 observation Crisis evaluation Serum EtOH: 202 @ 16:00 Accucheck 78 19:30: seen by skid worker, patient to be admitted for depression as per Dr. Ovalles. CBC, BMP, EKG and CXR ordered for admission. Spoke with Podiatry, will see patient in AM to remove sutures. 20:00: patient endorsed to [facility] pending labs, EKG and CXR results. Disposition - Clinical Impression Clinical Impression: Depression - Patient ED Disposition Is Patient to be Admitted: Transfer of Care ([facility]) Discussed With : Andrew Ovalles - Disposition Disposition: Transfer of Care Disposition Time: 20:00 Condition: FAIR Forms: [employer] (Estonian)
[2018-06-21 19:35] LABS: BASO # 0.1 K/uL (0.0-0.2); BASO % 0.9 % (0.0-2.0); EOS % 0.4 % (0.0-4.0); HEMOGLOBIN 13.3 g/dL (12.0-18.0); LYMPH # 2.7 K/uL (1.0-4.3); LYMPH % 24.6 % (20.0-40.0); MEAN CELL VOLUME 95.8 fl (80.0-94.0); MEAN CORPUSCULAR HEMOGLOBIN 32.9 pg (27.0-31.0); MEAN CORPUSCULAR HGB CONC 34.4 g/dL (33.0-37.0); MEAN PLATELET VOLUME 6.8 fl (7.2-11.7); MONO # 0.7 K/uL (0.0-0.8); MONO % 6.2 % (0.0-10.0); NEUT # 7.5 K/uL (1.8-7.0); NEUT % 67.9 % (50.0-75.0); NRBC % 0.1 % (0.0-0.0); RBC 4.03 Mil/uL (4.40-5.90); RED CELL DISTRIBUTION WIDTH 13.8 % (11.5-14.5)
[2018-06-21 20:15] LABS: ALB/GLOB RATIO 1.4 (1.0-2.1); ALBUMIN 4.7 g/dL (3.5-5.0); ALT/SGPT 25 U/L (21-72); AST/SGOT 38 U/L (17-59); BLOOD UREA NITROGEN 4 mg/dl (9-20); CALCIUM 9.4 mg/dL (8.4-10.2); GFR NON-AFRICAN AMERICAN > 60
--- NOTE | 2018-06-21 20:32 | ED PDOC ---
- Laboratory Results Result Diagrams: 06/21/18 19:25 06/21/18 19:30 Lab Results: Total Bilirubin 0.3 mg/dl (0.2-1.3) 06/21/18 19:30 AST 38 U/L (17-59) 06/21/18 19:30 ALT 25 U/L (21-72) 06/21/18 19:30 Alkaline Phosphatase 79 U/L (38-126) 06/21/18 19:30 Total Protein 8.1 G/DL (6.3-8.2) 06/21/18 19:30 Albumin 4.7 g/dL (3.5-5.0) 06/21/18 19:30 Globulin 3.3 gm/dL (2.2-3.9) 06/21/18 19:30 Albumin/Globulin Ratio 1.4 (1.0-2.1) 06/21/18 19:30 - ECG ECG: Positive for: Viewed By Me (reviewed by ED attending) ECG Rhythm: Positive for: Sinus Rhythm O2 Sat by Pulse Oximetry: 100 - Radiology X-Ray: Viewed By Me X-Ray Interpretation: No Acute Disease - Progress ED Course And Treament: Case endorsed to life underwriter from John PEREZ pending xray, ekg, labs and admission to psych Cipro PO given for UTI on u/a Medical Decision Making Medical Decision Making: Patient medically stable for psych admission Disposition - Clinical Impression Clinical Impression: Depression, UTI (lower urinary tract infection) - POA Present On Arrival: None - Disposition Disposition: Admitted as In-Patient Disposition Time: 21:15 Condition: STABLE Forms: [employer] (Chilean)
[2018-06-21 21:04] LABS: SQUAMOUS EPITHIAL < 1 /hpf (0-5); URINE BACTERIA OCC (<OCC); URINE BILIRUBIN NEGATIVE (NEGATIVE); URINE BLOOD SMALL (NEGATIVE); URINE CLARITY SLIGHTY-CLOUDY (Clear); URINE COLOR YELLOW (YELLOW); URINE GLUCOSE (UA) NEG (NEGATIVE); URINE LEUKOCYTE ESTERASE MOD Leu/uL (Negative); URINE PROTEIN 30 mg/dL (NEGATIVE); URINE UROBILINOGEN 0.2-1.0 mg/dL (0.2-1.0)
[2018-06-22 08:04] VITALS: O2SAT 100
--- NOTE | 2018-06-22 09:31 | CP.PCM.CON ---
History of Present Illness - History of Present Illness History of Present Illness: Podiatry Consult Note 43 y/o male with PMHx of alcohol abuse and seizures (2' EtOH) seen at bedside this morning for s/p second digit amputation on the left foot. Patient denies any pain to the left leg. Denies F/N/V/CP/SOB at present PSH: left leg IM nail, right ankle ORIF All: NKDA SocHx: admits to daily EtOH consumption; 10-12 cigarettes/day; denies illicit drug use Past Patient History - Infectious Disease Hx of Infectious Diseases: None - Tetanus Immunizations Tetanus Immunization: Unknown - Past Medical History & Family History Past Medical History?: Yes - Past Social History Smoking Status: Heavy Smoker > 10 Cigarettes Daily - CARDIAC Hx Hypertension: No - PULMONARY Hx Respiratory Disorders: No Hx Tuberculosis: No - NEUROLOGICAL Hx Seizures: Yes (alcohol related) - HEENT Hx HEENT Problems: No - RENAL Hx Chronic Kidney Disease: No - ENDOCRINE/METABOLIC Hx Endocrine Disorders: No - HEMATOLOGICAL/ONCOLOGICAL Hx Human Immunodeficiency Virus (HIV): No - INTEGUMENTARY Hx Dermatological Problems: Yes Hx Cellulitis: Yes - MUSCULOSKELETAL/RHEUMATOLOGICAL Hx Arthritis: Yes Hx Fractures: Yes (left leg) - GASTROINTESTINAL Hx Gastrointestinal Disorders: No - GENITOURINARY/GYNECOLOGICAL Hx Sexually Transmitted Disorders: No - PSYCHIATRIC Hx Anxiety: Yes Hx Depression: Yes - SURGICAL HISTORY Hx Appendectomy: No - ANESTHESIA Hx Anesthesia: Yes Hx Anesthesia Reactions: No Hx Malignant Hyperthermia: No Meds Allergies/Adverse Reactions: Allergies Allergy/AdvReac Type Severity Reaction Status Date / Time No Known Allergies Allergy Verified 06/21/18 14:28 Physical Exam - Extremities Exam Additional comments: Lower extremity focused exam: Vasc: DP/PT pulses palpable 2/4 B/L. Temperature gradient warm to cool.No pedal edema noted. Derm: Sutures noted at left second digit; no wound dehiscence noted, no malodor or active drainage, no erythema or edema. Neuro: protective and gross sensation slightly diminished Ortho: no tenderness to palpation of digits Results - Vital Signs Recent Vital Signs: Last Vital Signs Temp 98.8 F 06/22/18 07:40 Pulse 93 H 06/22/18 07:40 Resp 18 06/22/18 07:40 BP 118/73 06/22/18 07:40 Pulse Ox 100 06/22/18 07:40 - Labs Result Diagrams: 06/21/18 19:25 06/21/18 19:30 Labs: Laboratory Results - last 24 hr 06/21/18 06/21/18 06/21/18 16:06 16:06 16:07 WBC RBC Hgb Hct MCV MCH MCHC RDW Plt Count MPV Neut % (Auto) Lymph % (Auto) Kay % (Auto) Eos % (Auto) Baso % (Auto) Neut # (Auto) Lymph # (Auto) Kay # (Auto) Eos # (Auto) Baso # (Auto) Sodium Potassium Chloride Carbon Dioxide Anion Gap BUN Creatinine Est GFR ( Amer) Est GFR (Non-Af Amer) POC Glucose (mg/dL) 78 Random Glucose Calcium Total Bilirubin AST ALT Alkaline Phosphatase Total Protein Albumin Globulin Albumin/Globulin Ratio Urine Color Urine Clarity Urine pH Ur Specific [place] Urine Protein Urine Glucose (UA) Urine Ketones Urine Blood Urine Nitrate Urine Bilirubin Urine Urobilinogen Ur Leukocyte Esterase Urine RBC (Auto) Urine Microscopic WBC Ur Squamous Epith Cells Urine Bacteria Urine Opiates Screen Negative Urine Methadone Screen Negative Ur Barbiturates Screen Negative Ur Phencyclidine Scrn Negative Ur Amphetamines Screen Negative U Benzodiazepines Scrn Negative U Oth Cocaine Metabols Negative U Cannabinoids Screen Negative Alcohol, Quantitative 202 H 06/21/18 06/21/18 06/21/18 19:25 19:30 20:38 WBC 11.0 H RBC 4.03 L Hgb 13.3 Hct 38.6 MCV 95.8 H MCH 32.9 H MCHC 34.4 RDW 13.8 Plt Count 498 H D MPV 6.8 L Neut % (Auto) 67.9 Lymph % (Auto) 24.6 Kay % (Auto) 6.2 Eos % (Auto) 0.4 Baso % (Auto) 0.9 Neut # (Auto) 7.5 H Lymph # (Auto) 2.7 Kay # (Auto) 0.7 Eos # (Auto) 0.0 Baso # (Auto) 0.1 Sodium 129 L Potassium 4.4 Chloride 88 L Carbon Dioxide 22 Anion Gap 23 H BUN 4 L Creatinine 0.6 L Est GFR ( Amer) > 60 Est GFR (Non-Af Amer) > 60 POC Glucose (mg/dL) Random Glucose 76 Calcium 9.4 Total Bilirubin 0.3 AST 38 ALT 25 Alkaline Phosphatase 79 Total Protein 8.1 Albumin 4.7 Globulin 3.3 Albumin/Globulin Ratio 1.4 Urine Color Yellow Urine Clarity Slighty-cloudy Urine pH 6.0 Ur Specific [place] 1.006 Urine Protein 30 Urine Glucose (UA) Neg Urine Ketones Negative Urine Blood Small Urine Nitrate Negative Urine Bilirubin Negative Urine Urobilinogen 0.2-1.0 Ur Leukocyte Esterase Mod Urine RBC (Auto) 5 H Urine Microscopic WBC 11 H Ur Squamous Epith Cells < 1 Urine Bacteria Occ H Urine Opiates Screen Urine Methadone Screen Ur Barbiturates Screen Ur Phencyclidine Scrn Ur Amphetamines Screen U Benzodiazepines Scrn U Oth Cocaine Metabols U Cannabinoids Screen Alcohol, Quantitative Assessment & Plan - Assessment and Plan (Free Text) Assessment: 43 y/o male with left second digit amputation with sutures intact Plan: Patient seen and evaluated Sutures removed using sterile suture removal kit. Patient tolerated without any complications Podiatry to sign off on patient; please reconsult if necessary
[2018-06-22] MEDS ORDERED: Magnesium Hydroxide Susp 30 ml UD PO PRN (10:54)
[2018-06-22] MEDS ORDERED: DiphenhydrAMINE 50 mg/ml Inj IM PRN (10:54)
--- NOTE | 2018-06-22 11:29 | PCM.PSYCH ---
Initial Psychiatric Evaluation - Initial Psychiatric Evaluation Type of Admission: Voluntary Legal Status: Capacity Chief Complaint (in patient's own words): I lost both my brothers and I do not want to live Patient's Reaction to Hospitalization: pt requested help History of Present Illness and Precipitating Events: pt is 43 ys old male with previous diagnosis of depression and alcohol dependence brought to ER by police after expressing suicidal ideation with plan to cut his wrist pt recently discharged from [facility], non compliant with follow up , has been increasingly depressed due to the recent of his brother, relapsed on alcohol,unspecified amount, while intoxicated started having suicidal ideation pt reported also being depressed in the context of being homeless and having no social support reported low energy, poor motivation, poor appetite and sleep, denied active thoughts of self harm on the unit, denied current perceptual disturbances, alcohol level noted to be 202 Current Medications: Active Medications Generic Name Dose Route Start Last Admin Trade Name Freq PRN Reason Stop Dose Admin Acetaminophen 650 mg 06/22/18 10:54 Tylenol 325mg Tab PO Q4 PRN Pain, moderate (4-7) Al Hydrox/Mg Hydrox/Simethicone 30 ml 06/22/18 10:54 Maalox Plus 30 Ml PO Q4 PRN Dyspepsia Chlordiazepoxide 25 mg 06/22/18 13:00 Librium PO TID YUNI Diphenhydramine HCl 50 mg 06/22/18 10:54 Benadryl IM Q6 PRN Extrapyramidal S/S Unable PO Diphenhydramine HCl 50 mg 06/22/18 10:54 Benadryl PO Q6 PRN Extrapyramidal Symptoms Folic Acid 1 mg 06/23/18 09:00 Folic Acid PO DAILY YUNI Gabapentin 200 mg 06/22/18 13:00 Neurontin PO TID YUNI Haloperidol 5 mg 06/22/18 10:54 Haldol PO Q4 PRN Agitation Haloperidol Lactate 5 mg 06/22/18 10:54 Haldol IM Q4 PRN Agitation, Unable to Take PO Lorazepam 2 mg 06/22/18 10:54 Ativan IM Q4 PRN Anxiety/Agitation,Unable PO Lorazepam 2 mg 06/22/18 10:54 Ativan PO Q4 PRN Anxiety/Agitation Magnesium Hydroxide 30 ml 06/22/18 10:54 Milk Of Magnesia PO HS PRN Constipation Thiamine HCl 100 mg 06/23/18 09:00 Vitamin B1 Tab PO DAILY YUNI Past Psychiatric History - Past Psychiatric History Explanation of prior treatment: multiple hospitalizations for depression since age 11 History of ETOH/Drug Use: history of alcohol use Pertinent Medical Hx (Current Medical&Sleep Prob, Allergies): Allergies Allergy/AdvReac Type Severity Reaction Status Date / Time No Known Allergies Allergy Verified 06/21/18 14:28 No Known Home Med 06/22/18 Mental Status Examination - Personal Presentation Personal Presentation: Looks older than stated age Additional comments: unkempt, disheveled - Affect Affect: Constricted, Depressed - Motor Activity Motor Activity: Psychomotor Retardation - Reliability in Providing Information Reliability in Providing Information: Fair - Speech Speech: Relevant - Mood Mood: Depressed, Anxious - Formal Thought Process Formal Thought Process: Circumstantial - Obsessions/Compulsions Obsessions: No Compulsions: No - Cognitive Functions Orientation: Person, Place Sensorium: Alert Abstract Thinking: [place] Judgement: Imparied, as evidence by: Poor judgement, Imparied, as evidence by: Lack of insight into illness - Risk Risk: Suicidal, Seizure, Withdrawal, Diminished functioning - Strength & Assets Inventory Strength & Assets Inventory: Life experience - Limitations Additional comments: poor social support DSM 5 DX - DSM 5 DSM 5 Diagnosis: major depression alcohol induced mood disorder with depressive features alcohol use disorder - Recommended/Plan of Treatment Treatment Recommendations and Plan of Treatment: pt will be started on librium protocol/ will monitor pt for symptoms and signs of alcohol withdrawal start zoloft 25mg, trazodone 100mg qhs neurontin 200mg tid motivational, group and supportive therapy
--- NOTE | 2018-06-22 11:52 | CARD ---
APPROVED REPORT Date of service: 06/21/2018 EKG Measurement Heart [id number] <Conclusion> Normal sinus rhythm Normal ECG
--- NOTE | 2018-06-22 15:03 | RAD ---
Date of service: 06/21/2018 HISTORY: shortness of breath, cough COMPARISON: 05/29/2017. TECHNIQUE: Chest PA and lateral FINDINGS: LUNGS: No active pulmonary disease. PLEURA: No significant pleural effusion identified. No pneumothorax apparent. CARDIOVASCULAR: No aortic atherosclerotic calcification present. Normal cardiac size. No pulmonary vascular congestion. OSSEOUS STRUCTURES: No significant abnormalities. Stable, healed posterior lateral right rib fractures. VISUALIZED UPPER ABDOMEN: Normal. OTHER FINDINGS: None. IMPRESSION: No active disease. No significant interval change compared to the prior examination(s).
--- NOTE | 2018-06-22 15:25 | PCM.BM ---
<Elvin Wilburn M - Last Filed: 06/22/18 15:25> Treatment assets and liabiliti Patient Assests: cooperative, self-reliant, ADL independent Patient Liabilities: financial problems, poor support system, substance abuse - Milieu Protocol Maintain good personal hygiene: every shift Encourage regular showers, every shift Remind patient to perform daily oral care, every shift Assist patient to perform ADL's Conduct patient checks and document Observation sheet: Q15 minutes Maintain personal safety: every shift Educate patient to report safety concerns to staff, every shift Monitor environment for contraband/sharps Medication safety: Monitor for expected outcome, potential side effects: every shift, Assess barriers to learning: every shift, Assess readiness for medication education: every shift Milieu Narrative: pt will be started on librium protocol/ will monitor pt for symptoms and signs of alcohol withdrawal start zoloft 25mg, trazodone 100mg qhs neurontin 200mg tid motivational, group and supportive therapy Discharge/Continuing Care - Treatment Team Participation Patient/Family/SO Statement: pt will be started on librium protocol/ will monitor pt for symptoms and signs of alcohol withdrawal start zoloft 25mg, trazodone 100mg qhs neurontin 200mg tid motivational, group and supportive therapy <Karla Quintanilla - Last Filed: 06/28/18 09:51> - Diagnosis (1) Depression Status: Acute Interventions: 06/28/18 09:50 psychotherapy, pharmacotherapy
--- NOTE | 2018-06-22 19:53 | CP.PCM.CON ---
History of Present Illness - History of Present Illness History of Present Illness: Attending: Dr Quintanilla Chief Complaint: Auditory Hallucinations The Patient was seen and examined in the Psychiatric Unit HPI: The hx is obtained from the patient and after review of the medical records. This is a 43 years old male with hx of Alcohol abuse with alcoholic related seizures, non compliant with medications and recent amputation of the 2th toe of the left foot. He was admitted on 06/21/18 with Alcoholic intoxication and suicidal ideation. he referred auditory hallucinations telling him to kill himself. PMH: Anxiety, Arthritis, Depression, Fractures (left leg), Seizures (alcohol related);Osteomyelitis of the 2th toe left foot; Trimaleolar fracture PSH: Left lower leg ORIF SH: Alcohol Abuse; Heavy smoker of cigarettes; No illegal drug use FH: States: Unknown Family Hx Allergies: NKDA Medication: denies Review of Systems - Constitutional Constitutional: Headache. absent: Anorexia, Chills, Fever - EENT Eyes: Requires Corrective Lenses. absent: Blurred Vision, Floaters Ears: absent: Decreased Hearing, Ear Discharge, Tinnitus Nose/Mouth/Throat: Nasal Congestion. absent: Epistaxis - Cardiovascular Cardiovascular: absent: Chest Pain, Dyspnea, Edema - Respiratory Respiratory: absent: Cough, Dyspnea, Wheezing, Stridor - Gastrointestinal Gastrointestinal: Diarrhea. absent: Abdominal Pain, Constipation, Nausea, Vomiting - Genitourinary Genitourinary: absent: Dysuria, Flank Pain, Urinary Frequency - Musculoskeletal Additional comments: 4th toe of the left foot recent amputated - Integumentary Integumentary: Sores. absent: Pruritus, Rash, Striae, Swelling - Neurological Neurological: absent: Confusion, Dizziness, Focal Weakness, Weakness - Psychiatric Psychiatric: Anxiety, Depression. absent: Confusion - Endocrine Endocrine: absent: Palpitations, Polydipsia, Polyphagia, Polyuria - Hematologic/Lymphatic Hematologic: absent: Easy Bleeding, Easy Bruising Past Patient History - Infectious Disease Hx of Infectious Diseases: None - Tetanus Immunizations Tetanus Immunization: Unknown - Past Medical History & Family History Past Medical History?: Yes - Past Social History Smoking Status: Heavy Smoker > 10 Cigarettes Daily Chewing Tobacco Use: No Cigar Use: No Alcohol: > 2 Drinks/Day Home Situation {Lives}: Homeless - CARDIAC Hx Hypertension: No - PULMONARY Hx Respiratory Disorders: No Hx Tuberculosis: No - NEUROLOGICAL Hx Seizures: Yes (alcohol related) - HEENT Hx HEENT Problems: No - RENAL Hx Chronic Kidney Disease: No - ENDOCRINE/METABOLIC Hx Endocrine Disorders: No - HEMATOLOGICAL/ONCOLOGICAL Hx Human Immunodeficiency Virus (HIV): No - INTEGUMENTARY Hx Dermatological Problems: Yes Hx Cellulitis: Yes - MUSCULOSKELETAL/RHEUMATOLOGICAL Hx Arthritis: Yes Hx Fractures: Yes (left leg) - GASTROINTESTINAL Hx Gastrointestinal Disorders: No - GENITOURINARY/GYNECOLOGICAL Hx Sexually Transmitted Disorders: No - PSYCHIATRIC Hx Anxiety: Yes Hx Depression: Yes - SURGICAL HISTORY Hx Appendectomy: No - ANESTHESIA Hx Anesthesia: Yes Hx Anesthesia Reactions: No Hx Malignant Hyperthermia: No Meds Allergies/Adverse Reactions: Allergies Allergy/AdvReac Type Severity Reaction Status Date / Time No Known Allergies Allergy Verified 06/21/18 14:28 - Medications Medications: Current Medications Acetaminophen (Tylenol 325mg Tab) 650 mg PO Q4 PRN PRN Reason: Pain, moderate (4-7) Al Hydrox/Mg Hydrox/Simethicone (Maalox Plus 30 Ml) 30 ml PO Q4 PRN PRN Reason: Dyspepsia Chlordiazepoxide (Librium) 25 mg PO TID [facility] Last Admin: 06/22/18 13:08 Dose: 25 mg Diphenhydramine HCl (Benadryl) 50 mg IM Q6 PRN PRN Reason: Extrapyramidal S/S Unable PO Diphenhydramine HCl (Benadryl) 50 mg PO Q6 PRN PRN Reason: Extrapyramidal Symptoms Folic Acid (Folic Acid) 1 mg PO DAILY [facility] Gabapentin (Neurontin) 200 mg PO TID [facility] Last Admin: 06/22/18 13:08 Dose: 200 mg Haloperidol (Haldol) 5 mg PO Q4 PRN PRN Reason: Agitation Haloperidol Lactate (Haldol) 5 mg IM Q4 PRN PRN Reason: Agitation, Unable to Take PO Lorazepam (Ativan) 2 mg IM Q4 PRN PRN Reason: Anxiety/Agitation,Unable PO Lorazepam (Ativan) 2 mg PO Q4 PRN PRN Reason: Anxiety/Agitation Magnesium Hydroxide (Milk Of Magnesia) 30 ml PO HS PRN PRN Reason: Constipation Sertraline HCl (Zoloft) 25 mg PO DAILY [facility] Thiamine HCl (Vitamin B1 Tab) 100 mg PO DAILY [facility] Trazodone HCl (Desyrel) 100 mg PO HS [facility] Physical Exam - Constitutional Appears: No Acute Distress - Head Exam Head Exam: ATRAUMATIC, NORMAL INSPECTION, NORMOCEPHALIC - Eye Exam Eye Exam: EOMI, Normal appearance Pupil Exam: NORMAL ACCOMODATION, PERRL - ENT Exam ENT Exam: Mucous Membranes Moist, Normal Exam, Normal External Ear Exam Additional comments: Rhinorrhia - Neck Exam Neck exam: Positive for: Full Rom, Normal Inspection. Negative for: Lymphadenopathy, Tenderness - Respiratory Exam Respiratory Exam: Clear to Auscultation Bilateral. absent: Rales, Rhonchi, Wheezes - Cardiovascular Exam Cardiovascular Exam: REGULAR RHYTHM, RRR, +S1, +S2. absent: Gallop - GI/Abdominal Exam GI & Abdominal Exam: Normal Bowel Sounds, Soft. absent: Mass, Organomegaly, Tenderness - Rectal Exam Rectal Exam: Deferred - Extremities Exam Additional comments: Second toe of the left foot with dressing by instrument technician. - Back Exam Back exam: NORMAL INSPECTION. absent: CVA tenderness (L), CVA tenderness (R) - Neurological Exam Neurological exam: Alert, CN II-XII Intact, Oriented x3, Reflexes Normal - Psychiatric Exam Psychiatric exam: Normal Affect, Normal Mood - Skin Skin Exam: Dry, Intact, Normal Color, Warm Results - Vital Signs Recent Vital Signs: Last Vital Signs Temp 97.4 F L 06/22/18 09:00 Pulse 104 H 06/22/18 09:00 Resp 18 06/22/18 09:00 BP 112/71 06/22/18 09:00 Pulse Ox 100 06/22/18 07:40 - Labs Result Diagrams: 06/21/18 19:25 06/21/18 19:30 Labs: Laboratory Results - last 24 hr 06/21/18 06/21/18 19:30 20:38 Sodium 129 L Potassium 4.4 Chloride 88 L Carbon Dioxide 22 Anion Gap 23 H BUN 4 L Creatinine 0.6 L Est GFR ( Amer) > 60 Est GFR (Non-Af Amer) > 60 Random Glucose 76 Calcium 9.4 Total Bilirubin 0.3 AST 38 ALT 25 Alkaline Phosphatase 79 Total Protein 8.1 Albumin 4.7 Globulin 3.3 Albumin/Globulin Ratio 1.4 Urine Color Yellow Urine Clarity Slighty-cloudy Urine pH 6.0 Ur Specific [place] 1.006 Urine Protein 30 Urine Glucose (UA) Neg Urine Ketones Negative Urine Blood Small Urine Nitrate Negative Urine Bilirubin Negative Urine Urobilinogen 0.2-1.0 Ur Leukocyte Esterase Mod Urine RBC (Auto) 5 H Urine Microscopic WBC 11 H Ur Squamous Epith Cells < 1 Urine Bacteria Occ H - EKG Data EKG comments: NSR 97/min - Imaging and Cardiology Chest x-ray Status: Image reviewed by me Additional comment: No infiltrate Assessment & Plan - Assessment and Plan (Free Text) Plan: 43 years old male with hx of Alcohol abuse with alcoholic related seizures, non compliant with medications and recent amputation of the 2th toe of the left foot. He was admitted on 06/21/18 with Alcoholic intoxication and suicidal ideation. he referred auditory hallucinations telling him to kill himself. #. Major Depression - Psychiatric Management #. Alcohol abuse - Alcohol withdrawal Precaution - Thiamine - Folic Acid - Multivitamin - librium - Ativan PRN #. Alcohol induced Seizures - Alcohol withdrawal precaution - Treat to prevent withdrawal - Ativan PRN seizues #. Surgical wound at 2nd toe of the left foot - Podiatry on consult Daniel Gomez MD - Date & Time Date: 06/22/18 Time: 19:53
[2018-06-23 09:16] LABS: T4 7.66 ug/dl (5.5-11.0)
--- NOTE | 2018-06-23 16:20 | PCM.PYCHPN ---
Psychiatric Progress Note - Psychiatric Progress Note Patient seen today, length of contact: pt evaluated discussed with team chart reviewed Patient Chief Complaint: I have a lot of losses Problems Identified/Issues Discussed: pt evaluated with treatment team, presenting with depressed mood and affect, low energy, hopelessness , limited insight into illness, motivational therapy provided in reference to alcohol use, pt declining referral to inpatient rehab, discussed gradual increase in dose of neurontin and zoloft pt denied active thoughts of self harm, denied command hallucinations Medical Problems: multiple hospitalizations for depression since age 11 DSM 5 Symptoms Update: depression alcohol dependence Medication Change: Yes (decrease librium gradually) Medical Record Reviewed: Yes (increase neurontin) Mental Status Examination - Cognitive Function Orientation: Person, Place Memory: Intact Attention: WNL Concentration: Poor Association: WNL Fund of Knowledge: Poor Decription of patient's judgement and insights: poor insight and judgment - Mood Mood: Depressed, Anxious - Affect Affect: Constricted, Depressed - Speech Speech: Soft - Formal Thought Process Formal Thought Process: Circumstantial - Suicidal Ideation Suicidal Ideation: No - Homicidal Ideation Homicidal Ideation: No Goal/Treatment Plan - Goal/Treatment Plan Need for Continued Stay: Remain at risks for inpatient hospitalization, Severe depression anxiety, Discharge may exacerbated symptoms Progress Toward Problem(s) and Goals/Treatment Plan: decrease librium protocol gradually / will monitor pt for symptoms and signs of alcohol withdrawal zoloft 25mg, trazodone 100mg qhs neurontin 300mg tid motivational, group and supportive therapy
--- NOTE | 2018-06-24 15:47 | PCM.PYCHPN ---
Psychiatric Progress Note - Psychiatric Progress Note Patient seen today, length of contact: pt evaluated discussed with team chart reviewed Patient Chief Complaint: I feel tired Problems Identified/Issues Discussed: pt evaluated , continues to present with depressed mood and irritable affect, discussed increasing zoloft, also discussed referral to inpatient rehab, pt declined with limited insight into illness pt denied active thoughts of self harm, denied command hallucinations Medical Problems: multiple hospitalizations for depression since age 11 DSM 5 Symptoms Update: depression alcohol dependence Medication Change: Yes (decrease librium gradually) Medical Record Reviewed: Yes Mental Status Examination - Cognitive Function Orientation: Person, Place Memory: Intact Attention: WNL Concentration: Poor Association: WNL Fund of Knowledge: Poor Decription of patient's judgement and insights: poor insight and judgment - Mood Mood: Depressed, Anxious - Affect Affect: Constricted, Depressed - Speech Speech: Soft - Formal Thought Process Formal Thought Process: Circumstantial - Suicidal Ideation Suicidal Ideation: No - Homicidal Ideation Homicidal Ideation: No Goal/Treatment Plan - Goal/Treatment Plan Need for Continued Stay: Remain at risks for inpatient hospitalization, Severe depression anxiety, Discharge may exacerbated symptoms Progress Toward Problem(s) and Goals/Treatment Plan: decrease librium protocol gradually / will monitor pt for symptoms and signs of alcohol withdrawal increase zoloft 50mg, trazodone 100mg qhs neurontin 300mg tid motivational, group and supportive therapy
[2018-06-24] MEDS: Alum-Mag Hydrox-Simethicone Susp (30 mL) PO PRN (23:26)
[2018-06-25] MEDS: Alum-Mag Hydrox-Simethicone Susp (30 mL) PO PRN (11:04)
--- NOTE | 2018-06-25 14:53 | PCM.PYCHPN ---
Psychiatric Progress Note - Psychiatric Progress Note Patient seen today, length of contact: pt evaluated discussed with team chart reviewed Patient Chief Complaint: I have no energy all the time Problems Identified/Issues Discussed: pt evaluated continues to report low energy and poor motivation, pt irritable at times, needs behavioral redirection , continues to have limited insight into illness, refusing referral to inpatient rehab , motivational therapy provided, discussed discontinuing librium, no reported side effects of zoloft pt denied active thoughts of self harm, denied command hallucinations Medical Problems: multiple hospitalizations for depression since age 11 Medication Change: Yes (discontinue librium) Medical Record Reviewed: Yes Mental Status Examination - Cognitive Function Orientation: Person, Place Memory: Intact Attention: WNL Concentration: Poor Association: WNL Fund of Knowledge: Poor Decription of patient's judgement and insights: poor insight and judgment - Mood Mood: Depressed, Anxious - Affect Affect: Constricted, Depressed - Speech Speech: Soft - Formal Thought Process Formal Thought Process: Circumstantial - Suicidal Ideation Suicidal Ideation: No - Homicidal Ideation Homicidal Ideation: No Goal/Treatment Plan - Goal/Treatment Plan Need for Continued Stay: Remain at risks for inpatient hospitalization, Severe depression anxiety, Discharge may exacerbated symptoms Progress Toward Problem(s) and Goals/Treatment Plan: discontinue librium zoloft 50mg, trazodone 100mg qhs neurontin 300mg tid motivational, group and supportive therapy
--- NOTE | 2018-06-26 17:37 | PCM.PYCHPN ---
Psychiatric Progress Note - Psychiatric Progress Note Patient seen today, length of contact: pt evaluated discussed with team chart reviewed Patient Chief Complaint: reports feeling calmer, sleeping improving. reports has has somesurgery on foot related to diabetes has been seen by podiatry. seen about unit rx adherent. denies notable side effects Problems Identified/Issues Discussed: alteration in mood alteration in sleep alteration in coping alteration in skin intergrity Medical Problems: per chart Diagnostic Results: per psychiatry, medicine, nursing, social work, recreational therapy DSM 5 Symptoms Update: improving mood sleep no withdrawals no pain related to foot sx Medication Change: No Medical Record Reviewed: Yes Consults ordered or reviewed: pt being seen by medical team including podiatry Mental Status Examination - Cognitive Function Orientation: Person, Place Memory: Intact Attention: WNL Concentration: WNL Association: WNL Fund of Knowledge: WN Decription of patient's judgement and insights: improving - Mood Mood: Depressed, Anxious Additional comments: less - Affect Affect: Broad, Depressed - Speech Speech: Soft - Formal Thought Process Formal Thought Process: Circumstantial - Suicidal Ideation Suicidal Ideation: No - Homicidal Ideation Homicidal Ideation: No Goal/Treatment Plan - Goal/Treatment Plan Need for Continued Stay: Remain at risks for inpatient hospitalization, Severe depression anxiety, Discharge may exacerbated symptoms Progress Toward Problem(s) and Goals/Treatment Plan: inpt milieu adjust meds per status pt to be seen by podiatry in am discharge planning in progress Estimated Date of D/C: 07/02/18 - Smoking Cessation Smoking Cessation Initiated: No Reason for not providing: pt defers
[2018-06-27 09:59] VITALS: PULSE 80
--- NOTE | 2018-06-27 23:12 | PCM.PYCHPN ---
Psychiatric Progress Note - Psychiatric Progress Note Patient seen today, length of contact: pt evaluated discussed with team chart reviewed Patient Chief Complaint: reports feeling calmer, sleeping improving. reports has has somesurgery on foot related to diabetes has been seen by podiatry. seen about unit rx adherent. denies notable side effects Problems Identified/Issues Discussed: alteration in mood alteration in sleep alteration in coping alteration in skin intergrity Medical Problems: per chart Diagnostic Results: per psychiatry, medicine, nursing, social work, recreational therapy DSM 5 Symptoms Update: improving mood and sleep Medication Change: No Medical Record Reviewed: Yes Consults ordered or reviewed: seen by podiatry today Mental Status Examination - Cognitive Function Orientation: Person, Place Memory: Intact Attention: WNL Concentration: WNL Association: WNL Fund of Knowledge: [facility] Decription of patient's judgement and insights: improving - Mood Mood: Depressed, Anxious - Affect Affect: Broad, Depressed - Speech Speech: Soft - Formal Thought Process Formal Thought Process: Circumstantial - Suicidal Ideation Suicidal Ideation: No - Homicidal Ideation Homicidal Ideation: No Goal/Treatment Plan - Goal/Treatment Plan Need for Continued Stay: Remain at risks for inpatient hospitalization, Severe depression anxiety, Discharge may exacerbated symptoms Progress Toward Problem(s) and Goals/Treatment Plan: inpt milieu adjust meds per status pt to be seen by podiatry in am discharge planning in progress Estimated Date of D/C: 07/02/18 - Smoking Cessation Smoking Cessation Initiated: No Reason for not providing: pt defers
--- NOTE | 2018-06-28 07:44 | CP.PCM.PN ---
Subjective - Date & Time of Evaluation Date of Evaluation: 06/28/18 Time of Evaluation: 07:42 - Subjective Subjective: Podiatry progress note - Dr. Silver 43M seen and evaluated this AM. Reports mild pain to b/l feet. States he wears tight shoes and notices his toes being "crushed together" inside the shoe. States he feels better when he is not wearing shoegear and likes to walk around in socks. He also notices some darkening of the nail on his right big toe but denies pain to the area. Denies n/v/f/c/sob/cp today and has no other acute complaints. Objective - Vital Signs/Intake and Output Vital Signs (last 24 hours): Temp Pulse Resp BP Pulse Ox 97.7 F 80 18 108/63 100 06/27/18 09:00 06/27/18 09:00 06/27/18 09:00 06/27/18 09:00 06/22/18 07:40 - Medications Medications: Current Medications Acetaminophen (Tylenol 325mg Tab) 650 mg PO Q4 PRN PRN Reason: Pain, moderate (4-7) Al Hydrox/Mg Hydrox/Simethicone (Maalox Plus 30 Ml) 30 ml PO Q4 PRN PRN Reason: Dyspepsia Last Admin: 06/25/18 11:04 Dose: 30 ml Diphenhydramine HCl (Benadryl) 50 mg IM Q6 PRN PRN Reason: Extrapyramidal S/S Unable PO Diphenhydramine HCl (Benadryl) 50 mg PO Q6 PRN PRN Reason: Extrapyramidal Symptoms Folic Acid (Folic Acid) 1 mg PO DAILY [facility] Last Admin: 06/27/18 09:16 Dose: 1 mg Gabapentin (Neurontin) 300 mg PO TID [facility] Last Admin: 06/27/18 17:41 Dose: 300 mg Haloperidol (Haldol) 5 mg PO Q4 PRN PRN Reason: Agitation Haloperidol Lactate (Haldol) 5 mg IM Q4 PRN PRN Reason: Agitation, Unable to Take PO Magnesium Hydroxide (Milk Of Magnesia) 30 ml PO HS PRN PRN Reason: Constipation Sertraline HCl (Zoloft) 50 mg PO DAILY [facility] Last Admin: 06/27/18 09:14 Dose: 50 mg Thiamine HCl (Vitamin B1 Tab) 100 mg PO DAILY [facility] Last Admin: 06/27/18 09:14 Dose: 100 mg - Labs Labs: 06/21/18 19:25 06/21/18 19:30 - Constitutional Appears: Non-toxic - Head Exam Head Exam: ATRAUMATIC - Extremities Exam Additional comments: Lower extremity focused exam: Vasc: DP/PT pulses palpable 2/4 B/L. Temperature gradient warm to cool.No pedal edema noted. Derm: left second digit amputation site healed, no signs of infection; right hallux nail darkened in color with bruising appreciated; callus appreciated at right third digit dorsal pipj Neuro: protective and gross sensation slightly diminished Ortho: hammering of digits 2-5 on right foot greater than left digits; no pain on palpation of amputation site or digits - Neurological Exam Neurological Exam: Alert, Awake, Oriented x3 - Psychiatric Exam Psychiatric exam: Normal Affect, Normal Mood Assessment and Plan - Assessment and Plan (Free Text) Assessment: 43M with 1) s/p left second digit amputation, healed 2) right 2-5 digit hammertoes Plan: Patient seen and evaluated Discussed in detail with Dr. Silver Instructed on use of appropriately sized shoegear Wear open toed shoes when able to prevent friction and rubbing on hammered digits Check feet regularly Stretching exercises provided for calf and fascia Podiatry to sign off on patient Please reconsult if any acute problems present, thank you
[2018-06-28 09:51] VITALS: BP 101/61; TEMP 98.1
--- NOTE | 2018-06-28 11:35 | PCM.PYCHDC ---
Mental Status Examination - Mental Status Examination Orientation: Person, Place, Situation Memory: Intact Mood: Neutral Affect: Broad Speech: Appropriate Attention: WNL Concentration: WNL Association: WNL Fund of Knowledge: WNL Formal Thought Process: Circumstantial Description of patient's judgement and insight: poor insight and judgment Psychotic Thoughts and Behaviors: pt ondischarge denied any current perceptual disturbances, non elicited Suicidal Ideation: No Current Homicidal Ideation?: No Discharge Summary - Discharge Note Reason for Hospitalization: pt requested help pt is 43 ys old male with previous diagnosis of depression and alcohol dependence brought to ER by police after expressing suicidal ideation with plan to cut his wrist pt [facility], non compliant with follow up , has been increasingly depressed due to the recent of his brother, relapsed on alcohol,unspecified amount, while intoxicated started having suicidal ideation pt reported also being depressed in the context of being homeless and having no social support reported low energy, poor motivation, poor appetite and sleep, denied active thoughts of self harm on the unit, denied current perceptual disturbances, alcohol level noted to be 202 Consultations:: List each consultation separately and include: 1. Reason for request. 2. Findings. 3. Follow-up Summary of Hospital Course include:: 1. Description of specific treatment plan utilized for patients during their course of treatmen. 2. Summarize the time- course for resolution of acute symptoms and/or regressed behaviors. 3. Describe issues identified and worked on during hospitalization. 4. Describe medication utilized. 5. Describe medical problems identified and treated. 6. Reassessment of suicide risk Summary of Hospital Course: pt on admission was placed on librium protocol and monitored for symptoms and signs of alcohol withdrawal, pt was placed on zoloft for depression, it was gradually increased to 50mg motivational therapy provided, pt was educated about the need for referral for inpatient rehab, pt declined pt was referred to outpatient [facility] pt mental status was stable, denied any current suicidal or homicidal ideation denied perceptual disturbances - Diagnosis (1) Depression Current Visit: Yes Status: Acute Comment: psyche is managing - Final Diagnosis (DSM 5) Condition upon Discharge: STABLE DSM 5: major depression recurrent alcohol dependence Disposition: HOME/ ROUTINE Follow-up Treatment Plan: discontinue librium zoloft 50mg, trazodone 100mg qhs neurontin 300mg tid motivational, group and supportive therapy - Antipsychotic Medications Pt discharged on 2 or more routine antipsychotic medications: No
== END 2018-06-28 14:30 | disposition home or self-care (01) | DRG 751 ==
LOC: H.ER 14:23 → H.ERHOLD 21:29 → H.PSYCH 06-22 10:14
PROVIDERS: ADMIT Psychiatry & Neurology Psychiatry; ATTEND Psychiatry & Neurology Psychiatry
PROC: HZ57ZZZ Individual Psychotherapy for Substance Abuse Treatment, Motivational Enhancement (ICD-10-PCS; principal; 2018-06-21)
PROC: GZHZZZZ Group Psychotherapy (ICD-10-PCS; 2018-06-21)
PROC: GZ56ZZZ Individual Psychotherapy, Supportive (ICD-10-PCS; 2018-06-21)
DX: F33.9 Major depressive disorder, recurrent, unspecified (principal); R45.851 Suicidal ideations; Z91.14 Patient's other noncompliance with medication regimen; F10.229 Alcohol dependence with intoxication, unspecified; Y90.7 Blood alcohol level of 200-239 mg/100 ml; Z91.19 Patient's noncompliance with other medical treatment and regimen; M20.41 Other hammer toe(s) (acquired), right foot; Z59.0 Homelessness; Z89.422 Acquired absence of other left toe(s); F41.9 Anxiety disorder, unspecified; M19.90 Unspecified osteoarthritis, unspecified site; F17.210 Nicotine dependence, cigarettes, uncomplicated

== ENCOUNTER 2018-07-24 08:14 | Observation (INO) | payer MEDICAID ==
[2018-07-24 08:17] VITALS: BMI 25.0
--- NOTE | 2018-07-24 09:02 | ED PDOC ---
HPI: Seizure Time Seen by Provider: 07/24/18 08:17 Chief Complaint (Nursing): Seizure Chief Complaint (Provider): Seizure History Per: Patient History/Exam Limitations: no limitations Recent Seizure Activity Began: Just Before Arrival Length Of Seizures (Duration): Unknown Additional Complaint(s): 43 y/o undomiciled male with a PMHx of Seizure Disorder brought in by EMS for evaluation of a possible seizure. As per nurse, patient was reportedly at the homeless intermediate, sitting on a chair when he fell off and began having convulsions. Patient is unsure exactly what happened. Patient states he was sitting at the homeless intermediate and woke up in the Emergency Room. Patient notes of taking one tablet of Dilantin earlier this morning. Patient reports he was in police custody for three days and given a prescription for Dilantin upon his release on Thursday. Patient states he was instructed to take Dilantin three times daily but only took it once yesterday. Patient states his last seizure was a couple of weeks ago. PMD: non [facility] Provider Past Medical History Reviewed: Historical Data, Nursing Documentation, Vital Signs Vital Signs: Last Vital Signs Temp 97.3 F L 07/24/18 08:17 Pulse 106 H 07/24/18 08:17 Resp 20 07/24/18 08:17 BP 138/75 07/24/18 08:17 Pulse Ox 100 07/24/18 08:17 - Medical History PMH: Anxiety, Arthritis, Depression, Fractures (left leg), Seizures (alcohol related) Denies: Diabetes, Hepatitis, HIV, HTN, Chronic Kidney Disease, Sexually Transmitted Disease - Surgical History Surgical History: No Surg Hx Denies: Appendectomy - Family History Family History: States: Unknown Family Hx - Living Arrangements Living Arrangements: Other (undomiciled) - Immunization History Hx Tetanus Toxoid Vaccination: No Hx Influenza Vaccination: Yes (2016) Hx Pneumococcal Vaccination: Yes - Home Medications Home Medications: Ambulatory Orders Medication Instructions Recorded Gabapentin [Neurontin] 300 mg PO TID 30 Days #90 cap 06/28/18 Sertraline [Zoloft] 50 mg PO DAILY 30 Days #30 tab 06/28/18 Phenytoin [Dilantin] PO TID 07/24/18 - Allergies Allergies/Adverse Reactions: Allergies Allergy/AdvReac Type Severity Reaction Status Date / Time No Known Allergies Allergy Verified 06/29/18 07:58 Review of Systems ROS Statement: Except As Marked, All Systems Reviewed And Found Negative Neurological: Positive for: Seizures Physical Exam - Reviewed Nursing Documentation Reviewed: Yes Vital Signs Reviewed: Yes - Physical Exam Appears: Positive for: No Acute Distress Head Exam: Positive for: ATRAUMATIC. Negative for: NORMAL INSPECTION (1 cm abrasion noted to the superior scalp) Skin: Positive for: Normal Color, Warm, Dry Eye Exam: Positive for: Normal appearance, EOMI, PERRL Neck: Positive for: Normal, Painless ROM Cardiovascular/Chest: Positive for: Regular Rate, Rhythm. Negative for: Murmur Respiratory: Positive for: Normal Breath Sounds. Negative for: Respiratory Distress Extremity: Positive for: Normal ROM Neurological/Psych: Positive for: Awake, Alert - Laboratory Results Result Diagrams: 07/24/18 09:01 07/24/18 09:01 - ECG O2 Sat by Pulse Oximetry: 100 (RA) Pulse Ox Interpretation: Normal - Critical Care Total Time (In Min): 30 Medical Decision Making Medical Decision Making: Time: 851 Impression: Seizure Plan: -- CT Head w/o Contrast -- EKG -- EKG -- Alcohol Serum -- ED Urine Dipstick -- CBC with Differentials -- Glucose, POC -- Urinalysis Time: 1005 CT RESULTS Date of service: 07/24/2018 PROCEDURE: CT HEAD WITHOUT CONTRAST. HISTORY: Seizure COMPARISON: None available. TECHNIQUE: Axial computed tomography images were obtained through the head/brain without intravenous contrast. Radiation dose: Total exam DLP = 791.16 mGy-cm. This CT exam was performed using one or more of the following dose reduction techniques: Automated exposure control, adjustment of the mA and/or kV according to patient size, and/or use of iterative reconstruction technique. FINDINGS: HEMORRHAGE: No intracranial hemorrhage. BRAIN: No mass effect or edema. There is stable cerebral cortical atrophy identified greater than expected for the patient's age. Mild small vessel changes are also suspected in the white matter tracts. No new cortical effacement is seen. Tiny chronic lacunar infarct is seen in the right thalamus. VENTRICLES: Normal CALVARIUM: Unremarkable. PARANASAL SINUSES: There is evidence of chronic increased sinusitis from the prior study. Mastoid air cells are unremarkable. MASTOID AIR CELLS: Unremarkable as visualized. No inflammatory changes. OTHER FINDINGS: None. IMPRESSION: No evidence of intracranial hemorrhage or recent infarct. Stable cerebral cortical atrophy. Time: 1025 -- Patient had one seizure in the ED. 2 of Ativan ordered. Patient to be admitted for further observation and management. -- Dilantin (Phenytoin) -- Glucose, POC Scribe Attestation: Documented by Abner Menchaca, acting as a scribe Khushbu Vicente MD. Provider Scribe Attestation: All medical record entries made by the Scribe were at my direction and personally dictated by me. I have reviewed the chart and agree that the record accurately reflects my personal performance of the history, physical exam, medical decision making, and the department course for this patient. I have also personally directed, reviewed, and agree with the discharge instructions and disposition. Disposition - Clinical Impression Clinical Impression: Generalized seizure - Patient ED Disposition Is Patient to be Admitted: Yes - Disposition Disposition Time: 10:29 Condition: GUARDED - Pt Status Changed To: Hospital Disposition Of: Observation - POA Present On Arrival: None
[2018-07-24 09:23] LABS: BASO # 0.1 K/uL (0.0-0.2); EOS # 0.1 K/uL (0.0-0.7); EOS % 1.3 % (0.0-4.0); HEMOGLOBIN 12.3 g/dL (12.0-18.0); LYMPH # 2.2 K/uL (1.0-4.3); LYMPH % 19.7 % (20.0-40.0); MEAN CELL VOLUME 93.9 fl (80.0-94.0); MEAN CORPUSCULAR HEMOGLOBIN 31.6 pg (27.0-31.0); MEAN CORPUSCULAR HGB CONC 33.6 g/dL (33.0-37.0); MEAN PLATELET VOLUME 6.5 fl (7.2-11.7); MONO # 0.7 K/uL (0.0-0.8); MONO % 6.6 % (0.0-10.0); NEUT % 71.4 % (50.0-75.0); NRBC % 0.1 % (0.0-0.0); RBC 3.89 Mil/uL (4.40-5.90); RED CELL DISTRIBUTION WIDTH 13.3 % (11.5-14.5); WHITE BLOOD COUNT 11.1 K/uL (4.8-10.8)
[2018-07-24 09:50] LABS: ALB/GLOB RATIO 1.2 (1.0-2.1); ALBUMIN 4.3 g/dL (3.5-5.0); ALT/SGPT 15 U/L (21-72); AST/SGOT 27 U/L (17-59); BLOOD UREA NITROGEN 10 mg/dl (9-20); GFR NON-AFRICAN AMERICAN > 60
--- NOTE | 2018-07-24 10:09 | CT ---
Date of service: 07/24/2018 PROCEDURE: CT HEAD WITHOUT CONTRAST. HISTORY: Seizure COMPARISON: None available. TECHNIQUE: Axial computed tomography images were obtained through the head/brain without intravenous contrast. Radiation dose: Total exam DLP = 791.16 mGy-cm. This CT exam was performed using one or more of the following dose reduction techniques: Automated exposure control, adjustment of the mA and/or kV according to patient size, and/or use of iterative reconstruction technique. FINDINGS: HEMORRHAGE: No intracranial hemorrhage. BRAIN: No mass effect or edema. There is stable cerebral cortical atrophy identified greater than expected for the patient's age. Mild small vessel changes are also suspected in the white matter tracts. No new cortical effacement is seen. Tiny chronic lacunar infarct is seen in the right thalamus. VENTRICLES: Normal CALVARIUM: Unremarkable. PARANASAL SINUSES: There is evidence of chronic increased sinusitis from the prior study. Mastoid air cells are unremarkable. MASTOID AIR CELLS: Unremarkable as visualized. No inflammatory changes. OTHER FINDINGS: None. IMPRESSION: No evidence of intracranial hemorrhage or recent infarct. Stable cerebral cortical atrophy.
[2018-07-24 10:40] LABS: SQUAMOUS EPITHIAL 1 /hpf (0-5); URINE BACTERIA FEW (<OCC); URINE BILIRUBIN NEGATIVE (NEGATIVE); URINE BLOOD MODERATE (NEGATIVE); URINE CLARITY SLIGHTY-CLOUDY (Clear); URINE COLOR YELLOW (YELLOW); URINE GLUCOSE (UA) NEG (NEGATIVE); URINE LEUKOCYTE ESTERASE MOD Leu/uL (Negative); URINE PROTEIN 30 mg/dL (NEGATIVE); URINE UROBILINOGEN 0.2-1.0 mg/dL (0.2-1.0)
--- NOTE | 2018-07-24 10:46 | CP.PCM.HP ---
<Connie Roldan - Last Filed: 07/24/18 13:28> History of Present Illness - History of Present Illness History of Present Illness: Patient is postictal and s/p ativan, history taken by ED doctor, nurse and chart review. 43 year old homeless male with past medical history of alcohol abuse, seizures, medication noncompliance ashley by EMS after being found lying on the sidewalk. No trauma or LOC reported. Per ED Dr and nurse pt had a seizure episode on arrival. Patient was c/o pain in his posterior thighs b/l and buttocks which worsened this past week. He also complains of stool incontinence, has been sitting/lying on cold and wet concrete outside. Patient admits to drinking 2 24 oz beers today prior to arrival, states he typically drinks "however much I can afford". Patient is noncomplaint with seizure meds and states he hasnt taken any meds since last time he was in hospital. Does not recall his meds dosage, cannot recall last seizure. Denies fevers/chills, headaches, dizziness, chest pain, palpitations, sob, cough, abdominal pain, n/v, constipation, dysuria. PMD: none provided PMH: Anxiety, Arthritis, Depression, Fractures (left leg), Seizures (alcohol related); Osteomyelitis of the 2th toe left foot; Trimaleolar fracture PSH: Left lower leg ORIF SH: Alcohol Abuse; Heavy smoker of cigarettes; No illegal drug use FH: States: Unknown Family Hx Allergies: NKDA Medication: Dilantin, Librium for seizures per old chart--dosage unknown Present on Admission - Present on Admission Any Indicators Present on Admission: No Review of Systems - Review of Systems All systems: reviewed and no additional remarkable complaints except (HPI, unable to obtain by me due to mental status) Past Patient History - Infectious Disease Hx of Infectious Diseases: None - Tetanus Immunizations Tetanus Immunization: Unknown - Past Medical History & Family History Past Medical History?: Yes - Past Social History Smoking Status: Heavy Smoker > 10 Cigarettes Daily - CARDIAC Hx Hypertension: No - PULMONARY Hx Respiratory Disorders: No Hx Tuberculosis: No - NEUROLOGICAL Hx Seizures: Yes (alcohol related) - HEENT Hx HEENT Problems: No - RENAL Hx Chronic Kidney Disease: No - ENDOCRINE/METABOLIC Hx Endocrine Disorders: No - HEMATOLOGICAL/ONCOLOGICAL Hx Human Immunodeficiency Virus (HIV): No - INTEGUMENTARY Hx Dermatological Problems: Yes Hx Cellulitis: Yes - MUSCULOSKELETAL/RHEUMATOLOGICAL Hx Arthritis: Yes Hx Fractures: Yes (left leg) - GASTROINTESTINAL Hx Gastrointestinal Disorders: No - GENITOURINARY/GYNECOLOGICAL Hx Sexually Transmitted Disorders: No - PSYCHIATRIC Hx Anxiety: Yes Hx Depression: Yes - SURGICAL HISTORY Hx Appendectomy: No - ANESTHESIA Hx Anesthesia: Yes Hx Anesthesia Reactions: No Hx Malignant Hyperthermia: No Meds Allergies/Adverse Reactions: Allergies Allergy/AdvReac Type Severity Reaction Status Date / Time No Known Allergies Allergy Verified 06/29/18 07:58 Physical Exam - Constitutional Additional comments: Obtunded, postictal, unable to open eyes or follow commands - Head Exam Head Exam: NORMAL INSPECTION - Eye Exam Pupil Exam: Miosis, PERRL - Respiratory Exam Respiratory Exam: Clear to Auscultation Bilateral, NORMAL BREATHING PATTERN - Cardiovascular Exam Cardiovascular Exam: REGULAR RHYTHM, +S1, +S2. absent: Tachycardia - GI/Abdominal Exam GI & Abdominal Exam: Normal Bowel Sounds, Soft. absent: Distended - Extremities Exam Extremities exam: Negative for: pedal edema - Psychiatric Exam Additional comments: Obtunded, postictal, unable to open eyes or follow commands - Skin Skin Exam: Dry, Normal Color, Warm Results - Vital Signs Recent Vital Signs: Last Vital Signs Temp 97.3 F L 07/24/18 08:17 Pulse 99 H 07/24/18 10:31 Resp 21 07/24/18 10:31 BP 140/80 07/24/18 10:31 Pulse Ox 100 07/24/18 10:43 - Labs Result Diagrams: 07/24/18 09:01 07/24/18 09:01 Labs: Laboratory Results - last 24 hr 07/24/18 07/24/18 07/24/18 09:01 09:01 10:06 WBC 11.1 H RBC 3.89 L Hgb 12.3 Hct 36.5 MCV 93.9 MCH 31.6 H MCHC 33.6 RDW 13.3 Plt Count 590 H MPV 6.5 L Neut % (Auto) 71.4 Lymph % (Auto) 19.7 L [place] % (Auto) 6.6 Eos % (Auto) 1.3 Baso % (Auto) 1.0 Neut # (Auto) 8.0 H Lymph # (Auto) 2.2 [place] # (Auto) 0.7 Eos # (Auto) 0.1 Baso # (Auto) 0.1 Sodium 136 Potassium 4.8 Chloride 93 L Carbon Dioxide 18 L Anion Gap 30 H BUN 10 Creatinine 0.8 Est GFR ( Amer) > 60 Est GFR (Non-Af Amer) > 60 POC Glucose (mg/dL) 98 Random Glucose 61 L Calcium 9.0 Total Bilirubin 0.2 AST 27 ALT 15 L D Alkaline Phosphatase 102 Total Protein 7.8 Albumin 4.3 Globulin 3.5 Albumin/Globulin Ratio 1.2 Alcohol, Quantitative < 10 Assessment & Plan - Assessment and Plan (Free Text) Assessment: 43 year old homeless male with past medical history of alcohol abuse, seizures, medication noncompliance ashley by EMS after being found lying on the sidewalk. No trauma or LOC reported. Patient had a seizure episode while in ED. Patient complains of pain in his posterior thighs b/l and buttocks which worsened this past week. He also complains of stool incontinence. Patient admits to drinking 2 24 oz beers today prior to arrival, states he typically drinks "however much I can afford". Patient is noncompliant with seizure meds and states he hasnt taken any meds and does not remember meds doses. Patient is admitted for evaluation and management of seizure disorder. Head CT: No evidence of intracranial hemorrhage or recent infarct. Stable cerebral cortical atrophy. Plan: Seizure disorder - hx of seizures, 2/2 to etoh withdrawal, does not take meds - seizure precautions - F/U dilantin level - Alcohol withdrawal precaution - librium q8h - s/p Fosphenytoin 1000mg IV in ED h/o Alcohol abuse - last drink this morning before arrival - f/u serum alcohol level - f/u thiamine/B12/folate - [facility] protocol - Alcohol withdrawal precaution Diet - NPO for due to mental status Ppx: - DVT: scds, lovenox SQ - GI ppx: protonix 40 daily Case discussed with Dr Kem Bellamy PGY 2 <Demi Brownlee - Last Filed: 07/24/18 19:05> Results - Vital Signs Recent Vital Signs: Last Vital Signs Temp 99.1 F 07/24/18 15:49 Pulse 115 H 07/24/18 15:49 Resp 16 07/24/18 15:49 BP 102/65 07/24/18 15:49 Pulse Ox 100 07/24/18 17:40 - Labs Result Diagrams: 07/24/18 09:01 07/24/18 09:01 Labs: Laboratory Results - last 24 hr 07/24/18 07/24/18 07/24/18 09:01 09:01 09:11 WBC 11.1 H RBC 3.89 L Hgb 12.3 Hct 36.5 MCV 93.9 MCH 31.6 H MCHC 33.6 RDW 13.3 Plt Count 590 H MPV 6.5 L Neut % (Auto) 71.4 Lymph % (Auto) 19.7 L [place] % (Auto) 6.6 Eos % (Auto) 1.3 Baso % (Auto) 1.0 Neut # (Auto) 8.0 H Lymph # (Auto) 2.2 [place] # (Auto) 0.7 Eos # (Auto) 0.1 Baso # (Auto) 0.1 Sodium 136 Potassium 4.8 Chloride 93 L Carbon Dioxide 18 L Anion Gap 30 H BUN 10 Creatinine 0.8 Est GFR ( Amer) > 60 Est GFR (Non-Af Amer) > 60 POC Glucose (mg/dL) Random Glucose 61 L Calcium 9.0 Total Bilirubin 0.2 AST 27 ALT 15 L D Alkaline Phosphatase 102 Total Protein 7.8 Albumin 4.3 Globulin 3.5 Albumin/Globulin Ratio 1.2 Urine Color Yellow Urine Clarity Slighty-cloudy Urine pH 6.0 Ur Specific [place] 1.012 Urine Protein 30 Urine Glucose (UA) Neg Urine Ketones Negative Urine Blood Moderate Urine Nitrate Negative Urine Bilirubin Negative Urine Urobilinogen 0.2-1.0 Ur Leukocyte Esterase Mod Urine RBC (Auto) 32 H Urine Microscopic WBC 28 H Ur Squamous Epith Cells 1 Urine Bacteria Few H Urine Opiates Screen Urine Methadone Screen Ur Barbiturates Screen Phenytoin Ur Phencyclidine Scrn Ur Amphetamines Screen U Benzodiazepines Scrn U Oth Cocaine Metabols U Cannabinoids Screen Alcohol, Quantitative < 10 07/24/18 07/24/18 07/24/18 10:06 10:42 10:50 WBC RBC Hgb Hct MCV MCH MCHC RDW Plt Count MPV Neut % (Auto) Lymph % (Auto) [place] % (Auto) Eos % (Auto) Baso % (Auto) Neut # (Auto) Lymph # (Auto) [place] # (Auto) Eos # (Auto) Baso # (Auto) Sodium Potassium Chloride Carbon Dioxide Anion Gap BUN Creatinine Est GFR ( Amer) Est GFR (Non-Af Amer) POC Glucose (mg/dL) 98 Random Glucose Calcium Total Bilirubin AST ALT Alkaline Phosphatase Total Protein Albumin Globulin Albumin/Globulin Ratio Urine Color Urine Clarity Urine pH Ur Specific [place] Urine Protein Urine Glucose (UA) Urine Ketones Urine Blood Urine Nitrate Urine Bilirubin Urine Urobilinogen Ur Leukocyte Esterase Urine RBC (Auto) Urine Microscopic WBC Ur Squamous Epith Cells Urine Bacteria Urine Opiates Screen Negative Urine Methadone Screen Negative Ur Barbiturates Screen Negative Phenytoin < 3.0 L Ur Phencyclidine Scrn Negative Ur Amphetamines Screen Negative U Benzodiazepines Scrn Negative U Oth Cocaine Metabols Negative U Cannabinoids Screen Negative Alcohol, Quantitative Attending/Attestation - Attestation I have personally seen and examined this patient.: Yes I have fully participated in the care of the patient.: Yes I have reviewed all pertinent clinical information: Yes Notes (Text): 07/24/18 19:05 Agree with findings and plan as above.
[2018-07-24 11:54] LABS: BARBITURATES, UR NEGATIVE (NEGATIVE); BENZODIAZEPINES, UR NEGATIVE (NEGATIVE); OPIATES, UR NEGATIVE (NEGATIVE); PHENCYCLIDINE, UR NEGATIVE (NEGATIVE)
--- NOTE | 2018-07-24 12:18 | CARD ---
APPROVED REPORT Date of service: 07/24/2018 EKG Measurement Heart [id number] <Conclusion> Sinus tachycardia Otherwise normal ECG
[2018-07-24] MEDS: Phenytoin 100 mg/2 ml Inj IVP SCH (18:26)
[2018-07-24] MEDS: Sodium Chloride 0.9% 1,000 ML IV SCH (19:30)
[2018-07-25] MEDS: Phenytoin 100 mg/2 ml Inj IVP SCH ×2 (00:32→09:46)
[2018-07-25] MEDS: Sodium Chloride 0.9% 1,000 ML IV SCH (05:52)
[2018-07-25 06:35] LABS: BASO # 0.1 K/uL (0.0-0.2); EOS # 0.1 K/uL (0.0-0.7); EOS % 1.5 % (0.0-4.0); LYMPH # 1.8 K/uL (1.0-4.3); MEAN CELL VOLUME 95.1 fl (80.0-94.0); MEAN CORPUSCULAR HEMOGLOBIN 32.2 pg (27.0-31.0); MEAN CORPUSCULAR HGB CONC 33.8 g/dL (33.0-37.0); MEAN PLATELET VOLUME 6.6 fl (7.2-11.7); MONO # 0.9 K/uL (0.0-0.8); MONO % 10.2 % (0.0-10.0); NEUT # 5.6 K/uL (1.8-7.0); NEUT % 66.3 % (50.0-75.0); NRBC % 0.1 % (0.0-0.0); RBC 4.36 Mil/uL (4.40-5.90); RED CELL DISTRIBUTION WIDTH 13.7 % (11.5-14.5); WHITE BLOOD COUNT 8.5 K/uL (4.8-10.8)
[2018-07-25 06:44] LABS: ALB/GLOB RATIO 1.1 (1.0-2.1); ALBUMIN 4.1 g/dL (3.5-5.0); ALT/SGPT 16 U/L (21-72); AST/SGOT 26 U/L (17-59); BLOOD UREA NITROGEN 9 mg/dl (9-20); CALCIUM 9.2 mg/dL (8.4-10.2); GFR NON-AFRICAN AMERICAN > 60
[2018-07-25 07:59] VITALS: RESP 18
[2018-07-25] MEDS ORDERED: Enoxaparin 40 mg Syringe SC SCH (09:00)
[2018-07-25 11:55] VITALS: BP 87/54; PULSE 87; TEMP 98.5; O2SAT 97
--- NOTE | 2018-07-25 12:05 | CP.PCM.DIS ---
Provider - Provider Date of Admission: 07/24/18 10:29 Attending physician: Demi Brownlee DO Consults: 07/24/18 14:40 Social Work Referral Routine Comment: homeless, non-compliant with seizure meds Physician Instructions: Reason For Exam: homeless Hospital Course - Lab Results Lab Results: Most Recent Lab Values WBC 8.5 K/uL (4.8-10.8) 07/25/18 04:30 RBC 4.36 Mil/uL (4.40-5.90) L 07/25/18 04:30 Hgb 14.0 g/dL (12.0-18.0) 07/25/18 04:30 Hct 41.5 % (35.0-51.0) 07/25/18 04:30 MCV 95.1 fl (80.0-94.0) H 07/25/18 04:30 MCH 32.2 pg (27.0-31.0) H 07/25/18 04:30 MCHC 33.8 g/dL (33.0-37.0) 07/25/18 04:30 RDW 13.7 % (11.5-14.5) 07/25/18 04:30 Plt Count 540 K/uL (130-400) H 07/25/18 04:30 MPV 6.6 fl (7.2-11.7) L 07/25/18 04:30 Neut % (Auto) 66.3 % (50.0-75.0) 07/25/18 04:30 Lymph % (Auto) 21.0 % (20.0-40.0) 07/25/18 04:30 [place] % (Auto) 10.2 % (0.0-10.0) H 07/25/18 04:30 Eos % (Auto) 1.5 % (0.0-4.0) 07/25/18 04:30 Baso % (Auto) 1.0 % (0.0-2.0) 07/25/18 04:30 Neut # (Auto) 5.6 K/uL (1.8-7.0) 07/25/18 04:30 Lymph # (Auto) 1.8 K/uL (1.0-4.3) 07/25/18 04:30 [place] # (Auto) 0.9 K/uL (0.0-0.8) H 07/25/18 04:30 Eos # (Auto) 0.1 K/uL (0.0-0.7) 07/25/18 04:30 Baso # (Auto) 0.1 K/uL (0.0-0.2) 07/25/18 04:30 Sodium 139 mmol/l (132-148) 07/25/18 04:30 Potassium 4.4 MMOL/L (3.6-5.0) 07/25/18 04:30 Chloride 98 mmol/L (98-107) 07/25/18 04:30 Carbon Dioxide 25 mmol/L (22-30) 07/25/18 04:30 Anion Gap 20 (10-20) 07/25/18 04:30 BUN 9 mg/dl (9-20) 07/25/18 04:30 Creatinine 0.8 mg/dl (0.8-1.5) 07/25/18 04:30 Est GFR ( Amer) > 60 07/25/18 04:30 Est GFR (Non-Af Amer) > 60 07/25/18 04:30 POC Glucose (mg/dL) 78 mg/dL (65-110) 07/24/18 19:19 Random Glucose 83 mg/dL (75-110) 07/25/18 04:30 Calcium 9.2 mg/dL (8.4-10.2) 07/25/18 04:30 Total Bilirubin 0.3 mg/dl (0.2-1.3) 07/25/18 04:30 AST 26 U/L (17-59) 07/25/18 04:30 ALT 16 U/L (21-72) L 07/25/18 04:30 Alkaline Phosphatase 114 U/L (38-126) 07/25/18 04:30 Total Creatine Kinase 137 U/L (55-170) 07/25/18 04:30 Total Protein 7.6 G/DL (6.3-8.2) 07/25/18 04:30 Albumin 4.1 g/dL (3.5-5.0) 07/25/18 04:30 Globulin 3.6 gm/dL (2.2-3.9) 07/25/18 04:30 Albumin/Globulin Ratio 1.1 (1.0-2.1) 07/25/18 04:30 Vitamin B12 369 pg/mL (239-931) 07/25/18 04:30 Urine Color Yellow (YELLOW) 07/24/18 09:11 Urine Clarity Slighty-cloudy (Clear) 07/24/18 09:11 Urine pH 6.0 (5.0-8.0) 07/24/18 09:11 Ur Specific [place] 1.012 (1.003-1.030) 07/24/18 09:11 Urine Protein 30 mg/dL (NEGATIVE) 07/24/18 09:11 Urine Glucose (UA) Neg mg/dL (NEGATIVE) 07/24/18 09:11 Urine Ketones Negative mg/dL (NEGATIVE) 07/24/18 09:11 Urine Blood Moderate (NEGATIVE) 07/24/18 09:11 Urine Nitrate Negative (NEGATIVE) 07/24/18 09:11 Urine Bilirubin Negative (NEGATIVE) 07/24/18 09:11 Urine Urobilinogen 0.2-1.0 mg/dL (0.2-1.0) 07/24/18 09:11 Ur Leukocyte Esterase Mod [place]/uL (Negative) 07/24/18 09:11 Urine RBC (Auto) 32 /hpf (0-3) H 07/24/18 09:11 Urine Microscopic WBC 28 /hpf (0-5) H 07/24/18 09:11 Ur Squamous Epith Cells 1 /hpf (0-5) 07/24/18 09:11 Urine Bacteria Few (<OCC) H 07/24/18 09:11 Urine Opiates Screen Negative (NEGATIVE) 07/24/18 10:50 Urine Methadone Screen Negative (NEGATIVE) 07/24/18 10:50 Ur Barbiturates Screen Negative (NEGATIVE) 07/24/18 10:50 Phenytoin < 3.0 ug/ML (10-20) L 07/24/18 10:42 Ur Phencyclidine Scrn Negative (NEGATIVE) 07/24/18 10:50 Ur Amphetamines Screen Negative (NEGATIVE) 07/24/18 10:50 U Benzodiazepines Scrn Negative (NEGATIVE) 07/24/18 10:50 U Oth Cocaine Metabols Negative (NEGATIVE) 07/24/18 10:50 U Cannabinoids Screen Negative (NEGATIVE) 07/24/18 10:50 Alcohol, Quantitative < 10 mg/dl (0-10) 07/24/18 09:01 Discharge Exam - Head Exam Head Exam: ATRAUMATIC. absent: NORMAL INSPECTION (1 cm abrasion noted to the superior scalp) Discharge Plan - Discharge Medications Prescriptions: Phenytoin [Dilantin] 100 mg PO TID #30 ctb - Follow Up Plan Condition: GUARDED Disposition: HOME/ ROUTINE
--- NOTE | 2018-07-25 16:30 | CP.PCM.DIS ---
Provider - Provider Date of Admission: 07/24/18 10:29 Attending physician: Demi Brownlee DO Consults: 07/24/18 14:40 Social Work Referral Routine Comment: homeless, non-compliant with seizure meds Physician Instructions: Reason For Exam: homeless Time Spent in preparation of Discharge (in minutes): 35 Diagnosis - Discharge Diagnosis (1) Breakthrough seizure Status: Acute (2) Alcohol abuse Status: Chronic Hospital Course - Lab Results Lab Results: Most Recent Lab Values WBC 8.5 K/uL (4.8-10.8) 07/25/18 04:30 RBC 4.36 Mil/uL (4.40-5.90) L 07/25/18 04:30 Hgb 14.0 g/dL (12.0-18.0) 07/25/18 04:30 Hct 41.5 % (35.0-51.0) 07/25/18 04:30 MCV 95.1 fl (80.0-94.0) H 07/25/18 04:30 MCH 32.2 pg (27.0-31.0) H 07/25/18 04:30 MCHC 33.8 g/dL (33.0-37.0) 07/25/18 04:30 RDW 13.7 % (11.5-14.5) 07/25/18 04:30 Plt Count 540 K/uL (130-400) H 07/25/18 04:30 MPV 6.6 fl (7.2-11.7) L 07/25/18 04:30 Neut % (Auto) 66.3 % (50.0-75.0) 07/25/18 04:30 Lymph % (Auto) 21.0 % (20.0-40.0) 07/25/18 04:30 [place] % (Auto) 10.2 % (0.0-10.0) H 07/25/18 04:30 Eos % (Auto) 1.5 % (0.0-4.0) 07/25/18 04:30 Baso % (Auto) 1.0 % (0.0-2.0) 07/25/18 04:30 Neut # (Auto) 5.6 K/uL (1.8-7.0) 07/25/18 04:30 Lymph # (Auto) 1.8 K/uL (1.0-4.3) 07/25/18 04:30 [place] # (Auto) 0.9 K/uL (0.0-0.8) H 07/25/18 04:30 Eos # (Auto) 0.1 K/uL (0.0-0.7) 07/25/18 04:30 Baso # (Auto) 0.1 K/uL (0.0-0.2) 07/25/18 04:30 Sodium 139 mmol/l (132-148) 07/25/18 04:30 Potassium 4.4 MMOL/L (3.6-5.0) 07/25/18 04:30 Chloride 98 mmol/L (98-107) 07/25/18 04:30 Carbon Dioxide 25 mmol/L (22-30) 07/25/18 04:30 Anion Gap 20 (10-20) 07/25/18 04:30 BUN 9 mg/dl (9-20) 07/25/18 04:30 Creatinine 0.8 mg/dl (0.8-1.5) 07/25/18 04:30 Est GFR ( Amer) > 60 07/25/18 04:30 Est GFR (Non-Af Amer) > 60 07/25/18 04:30 POC Glucose (mg/dL) 78 mg/dL (65-110) 07/24/18 19:19 Random Glucose 83 mg/dL (75-110) 07/25/18 04:30 Calcium 9.2 mg/dL (8.4-10.2) 07/25/18 04:30 Total Bilirubin 0.3 mg/dl (0.2-1.3) 07/25/18 04:30 AST 26 U/L (17-59) 07/25/18 04:30 ALT 16 U/L (21-72) L 07/25/18 04:30 Alkaline Phosphatase 114 U/L (38-126) 07/25/18 04:30 Total Creatine Kinase 137 U/L (55-170) 07/25/18 04:30 Total Protein 7.6 G/DL (6.3-8.2) 07/25/18 04:30 Albumin 4.1 g/dL (3.5-5.0) 07/25/18 04:30 Globulin 3.6 gm/dL (2.2-3.9) 07/25/18 04:30 Albumin/Globulin Ratio 1.1 (1.0-2.1) 07/25/18 04:30 Vitamin B12 369 pg/mL (239-931) 07/25/18 04:30 Urine Color Yellow (YELLOW) 07/24/18 09:11 Urine Clarity Slighty-cloudy (Clear) 07/24/18 09:11 Urine pH 6.0 (5.0-8.0) 07/24/18 09:11 Ur Specific [place] 1.012 (1.003-1.030) 07/24/18 09:11 Urine Protein 30 mg/dL (NEGATIVE) 07/24/18 09:11 Urine Glucose (UA) Neg mg/dL (NEGATIVE) 07/24/18 09:11 Urine Ketones Negative mg/dL (NEGATIVE) 07/24/18 09:11 Urine Blood Moderate (NEGATIVE) 07/24/18 09:11 Urine Nitrate Negative (NEGATIVE) 07/24/18 09:11 Urine Bilirubin Negative (NEGATIVE) 07/24/18 09:11 Urine Urobilinogen 0.2-1.0 mg/dL (0.2-1.0) 07/24/18 09:11 Ur Leukocyte Esterase Mod Abundio/uL (Negative) 07/24/18 09:11 Urine RBC (Auto) 32 /hpf (0-3) H 07/24/18 09:11 Urine Microscopic WBC 28 /hpf (0-5) H 07/24/18 09:11 Ur Squamous Epith Cells 1 /hpf (0-5) 07/24/18 09:11 Urine Bacteria Few (<OCC) H 07/24/18 09:11 Urine Opiates Screen Negative (NEGATIVE) 07/24/18 10:50 Urine Methadone Screen Negative (NEGATIVE) 07/24/18 10:50 Ur Barbiturates Screen Negative (NEGATIVE) 07/24/18 10:50 Phenytoin < 3.0 ug/ML (10-20) L 07/24/18 10:42 Ur Phencyclidine Scrn Negative (NEGATIVE) 07/24/18 10:50 Ur Amphetamines Screen Negative (NEGATIVE) 07/24/18 10:50 U Benzodiazepines Scrn Negative (NEGATIVE) 07/24/18 10:50 U Oth Cocaine Metabols Negative (NEGATIVE) 07/24/18 10:50 U Cannabinoids Screen Negative (NEGATIVE) 07/24/18 10:50 Alcohol, Quantitative < 10 mg/dl (0-10) 07/24/18 09:01 - Hospital Course Hospital Course: 43 y/o gent, Homeless , resides at [facility], with history of Alcohol Abuse, Seizure Disorder and Depression, was brought in because of witnessed seizure. Patient admits noncompliance with his Dilantin. He he states that he was recently in snf and so was not able to take his meds and also had not been drinking Alcohol. His Phenytoin level was low on admission. he was loaded with IV Fosphophenytoin . CT of head was negative for bleed nor fracture. Pts is ambulatory and has not had any seizure since admission. Tolerated PO diet. Pt wants to go home and in a daily, he took off his IV line and Tele monitor and did not even wait fo his prescriptions to be handed to him and left. He states he still has a lot of Dilantin pills at the half-way. Discharge Exam - Head Exam Head Exam: NORMOCEPHALIC - Eye Exam Eye Exam: EOMI, Normal appearance, PERRL Pupil Exam: NORMAL ACCOMODATION - ENT Exam ENT Exam: Mucous Membranes Moist, Normal External Ear Exam - Neck Exam Neck exam: Full Rom - Respiratory Exam Respiratory Exam: NORMAL BREATHING PATTERN. absent: Respiratory Distress - Cardiovascular Exam Cardiovascular Exam: REGULAR RHYTHM, +S1, +S2 - GI/Abdominal Exam GI & Abdominal Exam: Normal Bowel Sounds, Soft. absent: Tenderness - Extremities Exam Extremities exam: full ROM, normal capillary refill, pedal pulses present - Back Exam Back exam: FULL ROM. absent: CVA tenderness (L), CVA tenderness (R) - Neurological Exam Neurological exam: Alert, CN II-XII Intact, Oriented x3, Reflexes Normal - Psychiatric Exam Psychiatric exam: Normal Affect, Normal Mood - Skin Skin Exam: Dry, Normal Color, Warm Discharge Plan - Discharge Medications Prescriptions: Phenytoin 100 mg PO TID #90 ctb - Follow Up Plan Condition: GOOD Disposition: HOME/ ROUTINE Instructions: Seizures, Adult (DC), Alcohol Withdrawal (DC) Additional Instructions: ff up FP clinic in 1 wk Referrals: [facility] [place] [Outside]
[2018-07-25 17:16] LABS: FOLATE > 20.0 ng/mL
== END 2018-07-25 12:36 | disposition home or self-care (01) ==
LOC: H.ER 08:14 → H.ERHOLD 10:29 → H.TEL 11:59
PROVIDERS: ADMIT Student in an Organized Health Care Education/Training Program; ATTEND Student in an Organized Health Care Education/Training Program
DX: G40.909 Epilepsy, unspecified, not intractable, without status epilepticus (principal); F10.10 Alcohol abuse, uncomplicated; F17.210 Nicotine dependence, cigarettes, uncomplicated; Z59.0 Homelessness; Z91.14 Patient's other noncompliance with medication regimen; R15.9 Full incontinence of feces; F41.9 Anxiety disorder, unspecified; M19.90 Unspecified osteoarthritis, unspecified site; F32.9 Major depressive disorder, single episode, unspecified; Y90.0 Blood alcohol level of less than 20 mg/100 ml
CPT/HCPCS: 36415; 70450; 80053; 80185; 80320; 80324; 80345; 80346; 80349; 80353; 80358; 80361; 81003; 82550; 82607; 82746; 82948; 83992; 85025; 93005; 96361; 96372; 96374; 96375; 96376; 99285; G0378; J1165; J1650; J2060; J7030; Q2009

== ENCOUNTER 2018-08-13 15:53 | Emergency (ER) | payer MEDICAID ==
[2018-08-13 15:53] VITALS: BMI 25.0
--- NOTE | 2018-08-13 18:59 | ED PDOC ---
HPI: Psych/Substance Abuse Time Seen by Provider: 08/13/18 16:04 Chief Complaint (Nursing): Alcohol Ingestion History Per: Patient Additional Complaint(s): Pt. was brought in by EMS as pt. was found sleeping in a hallway. Pt. admits to drinking alcohol. Further states he has a hx of seizures and takes Dilantin 100mg TID (last dose was taken today at 0600). Pt. states he depleted his supply of Dilantin. Offers no complaints at this time. Past Medical History Reviewed: Historical Data, Nursing Documentation, Vital Signs Vital Signs: Last Vital Signs Temp 97.9 F 08/13/18 15:54 Pulse 88 08/13/18 15:54 Resp 19 08/13/18 15:54 BP 152/77 H 08/13/18 15:54 Pulse Ox 100 08/13/18 15:54 - Medical History PMH: Anxiety, Arthritis, Depression, Fractures (left leg), Seizures (alcohol related) Denies: Diabetes, Hepatitis, HIV, HTN, Chronic Kidney Disease, Sexually Transmitted Disease - Surgical History Surgical History: No Surg Hx Denies: Appendectomy - Family History Family History: States: No Known Family Hx - Immunization History Hx Tetanus Toxoid Vaccination: No Hx Influenza Vaccination: Yes (2016) Hx Pneumococcal Vaccination: Yes - Home Medications Home Medications: Ambulatory Orders Medication Instructions Recorded Sertraline [Zoloft] 50 mg PO DAILY 30 Days #30 tab 06/28/18 Phenytoin 100 mg PO TID #90 ctb 07/25/18 - Allergies Allergies/Adverse Reactions: Allergies Allergy/AdvReac Type Severity Reaction Status Date / Time No Known Allergies Allergy Verified 08/03/18 00:20 Review of Systems ROS Statement: Except As Marked, All Systems Reviewed And Found Negative Physical Exam - Physical Exam Appears: Positive for: Well, Non-toxic, No Acute Distress Head Exam: Positive for: ATRAUMATIC, NORMAL INSPECTION, NORMOCEPHALIC Skin: Positive for: Normal Color, Warm. Negative for: Rash Eye Exam: Positive for: Normal appearance, EOMI, PERRL ENT: Positive for: Normal ENT Inspection Neck: Positive for: Normal, Painless ROM Cardiovascular/Chest: Positive for: Regular Rate, Rhythm Respiratory: Positive for: CNT, Normal Breath Sounds Gastrointestinal/Abdominal: Positive for: Soft. Negative for: Tenderness Back: Positive for: Normal Inspection. Negative for: L CVA Tenderness, R CVA Tenderness Neurological/Psych: Positive for: Awake, Alert, Oriented (x3), Gait (steady, unassisted) - ECG O2 Sat by Pulse Oximetry: 100 - Progress ED Course And Treament: Dilantin 100mg PO ordered. As per Lacie pharmacist, who spoke with [facility] pt. has a 90 day supply of Dilantin 100mg TID pending sweet pickle maker. Pt. informed of prescription in [facility] and advised to get prescription and to f/u with PMD. Disposition - Clinical Impression Clinical Impression: Alcohol intoxication - Patient ED Disposition Is Patient to be Admitted: No - Disposition Disposition: Routine/Home Disposition Time: 16:50 Condition: STABLE Additional Instructions: FOLLOW UP WITH YOUR DOCTOR FOR FURTHER EVALUATION RETURN TO ED IMMEDIATELY IF SYMPTOMS WORSEN GET YOUR DILANTIN MEDICATION IN [facility] STOP DRINKING ALCOHOL MELISSA ANDERS, thank you for letting us take care of you today. Your provider was Demian Vazquez MD and you were treated for ETOH. The emergency medical care you received today was directed at your acute symptoms. If you were prescribed any medication, please fill it and take as directed. It may take several days for your symptoms to resolve. Return to the Emergency Department if your symptoms worsen, do not improve, or if you have any other problems. Please contact your doctor or call one of the physicians/clinics you have been referred to that are listed on the Patient Visit Information form that is included in your discharge packet. Bring any paperwork you were given at discharge with you along with any medications you are taking to your follow up visit. Our treatment cannot replace ongoing medical care by a primary care provider outside of the emergency department. Thank you for allowing the [facility] team to be part of your care today. If you had an X-Ray or CT scan: A Radiologist will review the ED reading if any change in treatment is needed we will contact you. If you had a blood, urine, or wound culture: It will take several days for the results, if any change in treatment is needed we will contact you. If you had an STI test: It will take 48 hours for the results. Please call after 1 week if you have not heard back. Instructions: Effects of Alcohol on Your Health, Alcohol Use - When Is Drinking a Problem?
[2018-08-13 19:26] VITALS: BP 140/78; PULSE 90; RESP 18; TEMP 98; O2SAT 99
== END 2018-08-13 19:24 | disposition home or self-care (01) ==
LOC: H.ER 15:53
DX: F10.129 Alcohol abuse with intoxication, unspecified (principal); F32.9 Major depressive disorder, single episode, unspecified; F41.9 Anxiety disorder, unspecified

== ENCOUNTER 2018-08-21 20:18 | Emergency (ER) | payer MEDICAID ==
[2018-08-21 20:18] VITALS: BMI 25.0
[2018-08-21] MEDS ORDERED: Permethrin 5% CREAM TOP ONE (20:26)
--- NOTE | 2018-08-21 20:37 | ED PDOC ---
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 Upon arrival to ED, triage found patient has bed bugs and a mildy unsteady gait. Otherwise no other complaints. PMD: none provided Past Medical History Reviewed: Historical Data, Nursing Documentation, Vital Signs Vital Signs: Last Vital Signs Temp 98 F 08/21/18 20:20 Pulse 98 H 08/21/18 20:20 Resp 18 08/21/18 20:20 BP 136/84 08/21/18 20:20 Pulse Ox 95 08/21/18 20:20 - Medical History PMH: Anxiety, Arthritis, Depression, Fractures (left leg), Seizures (alcohol related) Denies: Diabetes, Hepatitis, HIV, HTN, Chronic Kidney Disease, Sexually Transmitted Disease - Surgical History Surgical History: Denies: Appendectomy - Family History Family History: States: Unknown Family Hx - Immunization History Hx Tetanus Toxoid Vaccination: No Hx Influenza Vaccination: Yes (2016) Hx Pneumococcal Vaccination: Yes - Home Medications Home Medications: Ambulatory Orders Medication Instructions Recorded Phenytoin 100 mg PO TID #90 ctb 07/25/18 - Allergies Allergies/Adverse Reactions: Allergies Allergy/AdvReac Type Severity Reaction Status Date / Time No Known Allergies Allergy Verified 08/21/18 20:22 Review of Systems ROS Statement: Except As Marked, All Systems Reviewed And Found Negative Physical Exam - Reviewed Nursing Documentation Reviewed: Yes Vital Signs Reviewed: Yes - Physical Exam Appears: Positive for: Well, Non-toxic, No Acute Distress Head Exam: Positive for: ATRAUMATIC, NORMAL INSPECTION, NORMOCEPHALIC Skin: Positive for: Normal Color, Warm. Negative for: Rash (no obvious escoriations) Eye Exam: Positive for: EOMI, Normal appearance, PERRL ENT: Positive for: Normal ENT Inspection Neck: Positive for: Normal, Painless ROM Cardiovascular/Chest: Positive for: Regular Rate, Rhythm Respiratory: Positive for: CNT, Normal Breath Sounds Gastrointestinal/Abdominal: Positive for: Normal Exam, Soft Back: Positive for: Normal Inspection Extremity: Positive for: Normal ROM Neurological/Psych: Positive for: Awake, Alert, Normal Tone, Gait (unsteady gait noted) - ECG O2 Sat by Pulse Oximetry: 95 (RA) Pulse Ox Interpretation: Normal - Progress ED Course And Treament: Patient decontaminated and washed in ED elimite 5%cream given. Patient placed in new clothes Medical Decision Making Medical Decision Making: Time: 2025 Plan: --permethrin Scribe Attestation: Documented by Daksha Luis acting as a scribe for Charly Meade PA-C. Provider Scribe Attestation: All medical record entries made by the Scribe were at my direction and personally dictated by me. I have reviewed the chart and agree that the record accurately reflects my personal performance of the history, physical exam, medical decision making, and the department course for this patient. I have also personally directed, reviewed, and agree with the discharge instructions and disposition. Disposition - Clinical Impression Clinical Impression: Alcohol intoxication, Bed bug bite - Patient ED Disposition Is Patient to be Admitted: Transfer of Care - Disposition Disposition: Transfer of Care Disposition Time: 00:08 Condition: FAIR Instructions: Alcohol Poisoning, Bedbugs Patient Signed Over To: Mariano Riley Handoff Comments: pending clinical sobriety
--- NOTE | 2018-08-22 00:17 | ED PDOC ---
- ECG O2 Sat by Pulse Oximetry: 95 (RA) Medical Decision Making Medical Decision Makin case endorsed to me by RAY Meade, pending sobriety [id number] re eval pt is sleeping, easily arousable, asking for food and to sleep, pt eating sandwich, will then re eval pt with diffuse rash to body consistent with bed bugs 0555 on re eval pt is awake, alert and oriented x3, ambulating with steady gait, tolerated food pt is clinically sober and stable for dc discussed diagnosis, treatment, return precautions and f/u with pt who is understanding, in agreement and stable for dc Disposition Counseled Patient/Family Regarding: Studies Performed, Diagnosis, Need For Foll owup - Clinical Impression Clinical Impression: Alcohol intoxication, Bed bug bite - POA Present On Arrival: None - Disposition Referrals: your, doctor [Other] [facility] [place] [Outside] Disposition: Routine/Home Disposition Time: 05:58 Condition: IMPROVED Additional Instructions: The emergency medical care you received today was directed at your acute symptoms. If you were prescribed any medication, please fill it and take as directed. It may take several days for your symptoms to resolve. Return to the Emergency Department if your symptoms worsen, do not improve, or if you have any other problems. Please contact your doctor in 2 days for re-evaluation and follow up / or call one of the physicians/clinics you have been referred to that are listed on the Patient Visit Information form that is included in your discharge packet. Bring any paperwork you were given at discharge with you along with any medications you are taking to your follow up visit. Our treatment cannot replace ongoing medical care by a primary care provider (PCP) outside of the emergency department. Instructions: Bedbugs, Alcohol Abuse and Alcoholism (DC) Print Language: SPANISH
[2018-08-22 06:43] VITALS: BP 130/68; PULSE 91; RESP 17; TEMP 98.3; O2SAT 96
== END 2018-08-22 06:42 | disposition home or self-care (01) ==
LOC: H.ER 20:18
DX: F10.129 Alcohol abuse with intoxication, unspecified (principal); T14.8XXA Other injury of unspecified body region, initial encounter; Z86.59 Personal history of other mental and behavioral disorders; W57.XXXA Bitten or stung by nonvenomous insect and other nonvenomous arthropods, initial encounter

== ENCOUNTER 2018-08-23 23:31 | Emergency (ER) | payer MEDICAID ==
[2018-08-23 23:32] VITALS: BMI 25.0
--- NOTE | 2018-08-24 01:39 | ED PDOC ---
HPI: Psych/Substance Abuse Time Seen by Provider: 08/24/18 01:25 Chief Complaint (Nursing): Alcohol Ingestion Chief Complaint (Provider): etoh History Per: Patient, EMS Additional Complaint(s): 43 y/o male brought in by EMS for evaluation of alcohol intoxication. Patient found to have bed bugs crawling on him in triage, taken to decon shower. Patient denies acute medical or psychiatric complaints. +AOB Past Medical History Reviewed: Historical Data, Nursing Documentation, Vital Signs - Medical History PMH: Anxiety, Arthritis, Depression, Fractures (left leg), Seizures (alcohol related) Denies: Diabetes, Hepatitis, HIV, HTN, Chronic Kidney Disease, Sexually Transmitted Disease - Surgical History Surgical History: Denies: Appendectomy - Family History Family History: States: Unknown Family Hx - Immunization History Hx Tetanus Toxoid Vaccination: No Hx Influenza Vaccination: Yes (2016) Hx Pneumococcal Vaccination: Yes - Home Medications Home Medications: Ambulatory Orders Medication Instructions Recorded Phenytoin 100 mg PO TID #90 ctb 07/25/18 - Allergies Allergies/Adverse Reactions: Allergies Allergy/AdvReac Type Severity Reaction Status Date / Time No Known Allergies Allergy Verified 08/21/18 20:22 Review of Systems ROS Statement: Except As Marked, All Systems Reviewed And Found Negative Physical Exam - Reviewed Nursing Documentation Reviewed: Yes Vital Signs Reviewed: Yes - Physical Exam Appears: Positive for: Well, Non-toxic, No Acute Distress Head Exam: Positive for: ATRAUMATIC, NORMAL INSPECTION, NORMOCEPHALIC Skin: Positive for: Normal Color Eye Exam: Positive for: Normal appearance Cardiovascular/Chest: Positive for: Regular Rate, Rhythm Respiratory: Positive for: Normal Breath Sounds Gastrointestinal/Abdominal: Positive for: Normal Exam Back: Positive for: Normal Inspection Extremity: Positive for: Normal ROM Neurological/Psych: Positive for: Awake, Alert, Oriented (x2) - Progress ED Course And Treament: -accucheck 2:30 Patient sleeping; no distress 4:00 Patient sleeping; no distress 5:30 Patient awake, alert, oriented x3. Ambulating steady gait Patient requires no further intervention in the ED and is stable for discharge at this time Return precautions given Disposition - Clinical Impression Clinical Impression: Alcohol abuse with uncomplicated intoxication, Infestation by bed bug - Patient ED Disposition Is Patient to be Admitted: No Counseled Patient/Family Regarding: Studies Performed, Diagnosis, Need For Followup - Disposition Disposition: Routine/Home Disposition Time: 05:22 Condition: STABLE Instructions: López, Alcohol Abuse and Alcoholism (DC)
[2018-08-24 05:20] VITALS: BP 131/78; PULSE 74; RESP 15; TEMP 98.7; O2SAT 97
== END 2018-08-24 06:10 | disposition home or self-care (01) ==
LOC: H.ER 23:31
DX: F10.120 Alcohol abuse with intoxication, uncomplicated (principal); B88.8 Other specified infestations; Z86.59 Personal history of other mental and behavioral disorders

== ENCOUNTER 2018-08-31 08:13 | Emergency (ER) | payer MEDICAID ==
[2018-08-31 08:16] VITALS: BP 126/60; PULSE 84; RESP 17; TEMP 98.6; O2SAT 97
[2018-08-31 08:17] VITALS: BMI 23.3
--- NOTE | 2018-08-31 09:32 | ED PDOC ---
HPI: Psych/Substance Abuse Time Seen by Provider: 08/31/18 08:50 Chief Complaint (Nursing): Medical Clearance Chief Complaint (Provider): Medical Clearance History Per: Patient History/Exam Limitations: no limitations Onset/Duration Of Symptoms: Hrs Modifying Factor(s): Alcohol Associated Symptoms: denies: Suicidal Thoughts, Suicidal Plan Additional Complaint(s): 43 year old male presents to the ED for presumed alcohol intoxication onset today. Currently, patient denies any complaints, trauma or headache. Also denies fever, shortness of breath, chest pain, abdominal pain, nausea, vomiting or diarrhea. PMD: No Family Provider Past Medical History Reviewed: Historical Data, Nursing Documentation, Vital Signs Vital Signs: Last Vital Signs Temp 98.6 F 08/31/18 08:15 Pulse 84 08/31/18 08:15 Resp 17 08/31/18 08:15 BP 126/60 08/31/18 08:15 Pulse Ox 97 08/31/18 08:15 - Medical History PMH: Anxiety, Arthritis, Depression, Fractures (left leg), Seizures (alcohol related) Denies: Diabetes, Hepatitis, HIV, HTN, Chronic Kidney Disease, Sexually Transmitted Disease - Surgical History Surgical History: Denies: Appendectomy - Family History Family History: States: Unknown Family Hx - Social History Current smoker - smoking cessation education provided: No (Former Smoker) Drugs: Denies - Immunization History Hx Tetanus Toxoid Vaccination: No Hx Influenza Vaccination: Yes (2016) Hx Pneumococcal Vaccination: Yes - Home Medications Home Medications: Ambulatory Orders Medication Instructions Recorded Phenytoin 100 mg PO TID #90 ctb 07/25/18 - Allergies Allergies/Adverse Reactions: Allergies Allergy/AdvReac Type Severity Reaction Status Date / Time No Known Allergies Allergy Verified 08/21/18 20:22 Review of Systems ROS Statement: Except As Marked, All Systems Reviewed And Found Negative Constitutional: Negative for: Fever, Chills Cardiovascular: Negative for: Chest Pain Respiratory: Negative for: Shortness of Breath Gastrointestinal: Negative for: Abdominal Pain Neurological: Negative for: Headache Physical Exam - Reviewed Nursing Documentation Reviewed: Yes Vital Signs Reviewed: Yes - Physical Exam Appears: Positive for: Well, Non-toxic, No Acute Distress Head Exam: Positive for: ATRAUMATIC, NORMAL INSPECTION, NORMOCEPHALIC Skin: Positive for: Normal Color, Warm, Dry Eye Exam: Positive for: EOMI, Normal appearance, PERRL Neck: Positive for: Normal Cardiovascular/Chest: Positive for: Regular Rate, Rhythm. Negative for: Murmur Respiratory: Positive for: Normal Breath Sounds. Negative for: Respiratory Distress Gastrointestinal/Abdominal: Positive for: Soft. Negative for: Tenderness Extremity: Positive for: Normal ROM. Negative for: Deformity Neurological/Psych: Positive for: Awake, Alert, Normal Tone, Oriented (x3) - ECG O2 Sat by Pulse Oximetry: 97 (RA) Pulse Ox Interpretation: Normal Medical Decision Making Medical Decision Making: Time: 923 Impression: medical eval Plan: Alcohol serum Accucheck Reevaluation 12:54 Patient resting comfortably throughout ER stay with no complaints and will be discharged home. Upon provider reevaluation patient is feeling better, is medically stable, and requires no further treatment in the ED at this time. Patient will be discharged. Counseling was provided and all questions were answered regarding diagnosis. There is agreement to discharge plan. Return if symptoms persist or worsen. Scribe Attestation: Documented by Elizabeth Gallagher, acting as a scribe for Reynaldo Topete MD. Provider Scribe Attestation: All medical record entries made by the Scribe were at my direction and personally dictated by me. I have reviewed the chart and agree that the record accurately reflects my personal performance of the history, physical exam, medi ravindra decision making, and the department course for this patient. I have also personally directed, reviewed, and agree with the discharge instructions and disposition. Disposition - Clinical Impression Clinical Impression: Medical assessment - Patient ED Disposition Is Patient to be Admitted: No Counseled Patient/Family Regarding: Studies Performed, Diagnosis, Need For Followup - Disposition Disposition: Routine/Home Disposition Time: 12:54 Condition: IMPROVED Additional Instructions: follow up as an outpatient return to the ED with any worsening or concerning symptoms Instructions: General (DC) Forms: [employer]™ (Azeri)
== END 2018-08-31 14:24 | disposition home or self-care (01) ==
LOC: H.ER 08:13
DX: Z00.00 Encounter for general adult medical examination without abnormal findings (principal); Z86.59 Personal history of other mental and behavioral disorders; Z87.891 Personal history of nicotine dependence

== ENCOUNTER 2018-09-02 20:34 | Emergency (ER) | payer MEDICAID ==
[2018-09-02 20:34] VITALS: BMI 23.3
--- NOTE | 2018-09-02 21:41 | ED PDOC ---
HPI: Psych/Substance Abuse Time Seen by Provider: 09/02/18 20:51 Chief Complaint (Nursing): Alcohol Ingestion Chief Complaint (Provider): Alcohol Intoxication History Per: Patient History/Exam Limitations: no limitations Onset/Duration Of Symptoms: Other (pt has been drinking all day) Current Symptoms Are (Timing): Still Present Additional Complaint(s): 43 year old male presents to the ED for evaluation of alcohol intoxication. Patient states he "got stupid" today and drank 3 half pints of vodka and 3 beers. He offers no psychiatric or physical complaints besides his feet hurting from walking around so much secondary to his homelessness. PMD: none provided Past Medical History Reviewed: Historical Data, Nursing Documentation, Vital Signs Vital Signs: Last Vital Signs Temp 98.1 F 09/02/18 20:36 Pulse 88 09/02/18 20:36 Resp 16 09/02/18 20:36 BP 122/76 09/02/18 20:36 Pulse Ox 99 09/02/18 20:36 - Medical History PMH: Anxiety, Arthritis, Depression, Fractures (left leg), Seizures (alcohol related) Denies: Diabetes, Hepatitis, HIV, HTN, Chronic Kidney Disease, Sexually Transmitted Disease - Surgical History Surgical History: No Surg Hx Denies: Appendectomy - Family History Family History: States: Unknown Family Hx - Living Arrangements Living Arrangements: Other (homeless) - Social History Alcohol: Other (hx abuse) - Immunization History Hx Tetanus Toxoid Vaccination: No Hx Influenza Vaccination: Yes (2016) Hx Pneumococcal Vaccination: Yes - Home Medications Home Medications: Ambulatory Orders Medication Instructions Recorded Phenytoin 100 mg PO TID #90 ctb 07/25/18 - Allergies Allergies/Adverse Reactions: Allergies Allergy/AdvReac Type Severity Reaction Status Date / Time No Known Allergies Allergy Verified 09/02/18 20:36 Review of Systems ROS Statement: Except As Marked, All Systems Reviewed And Found Negative Musculoskeletal: Positive for: Foot Pain (bilateral) Psych: Positive for: Other (intoxicated) Physical Exam - Reviewed Nursing Documentation Reviewed: Yes Vital Signs Reviewed: Yes - Physical Exam Comments: GENERAL APPEARANCE: Patient is awake, alert, oriented x 3, in no acute distress. Patient malodorous, refusing to ambulate secondary to intoxication. SKIN: Warm, dry; (-) cyanosis HEAD: atraumatic, normocephalic EYES: EOMI, PERRLA ENMT: Mucous membranes moist. Airway patent: (-) stridor. NECK: supple, full ROM HEART AND CARDIOVASCULAR: (-) irregularity; (-) murmur, (-) gallop. CHEST AND RESPIRATORY: (-) rales, (-) rhonchi, (-) wheezes; breath sounds equal. ABDOMEN: Soft, (-) distention, (-) tenderness, (-) guarding. NEURO AND PSYCH: Mental status as above. - ECG O2 Sat by Pulse Oximetry: 99 (RA) Pulse Ox Interpretation: Normal Medical Decision Making Medical Decision Making: Initial Impression: alcohol intoxication Time: 2057 Initial Plan: --Alcohol serum --Accucheck --Reevaluate, pending sobriety pt has been sleeping, no complaints 23:00 case endorsed to RAY Ng, pending sobriety and dispo Scribe Attestation: Documented by Nereida Conway acting as a scribe for Mariano Martel PA-C. Provider Scribe Attestation: All medical record entries made by the Scribe were at my direction and personally dictated by me. I have reviewed the chart and agree that the record accurately reflects my personal performance of the history, physical exam, medical decision making, and the department course for this patient. I have also personally directed, reviewed, and agree with the discharge instructions and disposition. Disposition - Clinical Impression Clinical Impression: Alcohol intoxication - Patient ED Disposition Is Patient to be Admitted: Transfer of Care (case endorsed to RAY Ng, pending sobriety and dispo) - Disposition Disposition: Transfer of Care (case endorsed to RAY Ng, pending sobriety and dispo) Disposition Time: 23:00 Condition: FAIR Forms: [employer] (Turkish) - POA Present On Arrival: None
--- NOTE | 2018-09-03 01:20 | ED PDOC ---
- ECG O2 Sat by Pulse Oximetry: 99 (RA) - Progress ED Course And Treament: Case endorsed to proposal writer from Daniela Drew PA-C pending sobriety 00:30 Patient sleeping; no distress 2:00 Patient sleeping; no distress 3:30 Patient sleeping; no distress 5:00 Patient awake, alert, oriented x3. Ambulating steady gait Stable for discharge Disposition - Clinical Impression Clinical Impression: Alcohol intoxication - POA Present On Arrival: None - Disposition Disposition: Routine/Home Disposition Time: 05:01 Condition: FAIR Instructions: Alcohol Use - When Is Drinking a Problem?
[2018-09-03 06:07] VITALS: BP 126/85; PULSE 79; RESP 17; TEMP 97.7; O2SAT 98
== END 2018-09-03 06:06 | disposition home or self-care (01) ==
LOC: H.ER 20:34
DX: F10.129 Alcohol abuse with intoxication, unspecified (principal); Z59.0 Homelessness; F41.9 Anxiety disorder, unspecified

== ENCOUNTER 2018-09-07 22:45 | Emergency (ER) | payer MEDICAID ==
[2018-09-07 22:47] VITALS: BMI 20.1
[2018-09-07 22:49] VITALS: BP 122/70; PULSE 82; RESP 18; TEMP 98.6; O2SAT 98
--- NOTE | 2018-09-07 23:23 | ED PDOC ---
HPI: Psych/Substance Abuse Time Seen by Provider: 09/07/18 23:08 Chief Complaint (Nursing): Alcohol Ingestion History Per: Patient History/Exam Limitations: no limitations Additional Complaint(s): 43 yo M well known to this ED with multiple visits for alcohol intoxication is brought in today by EMS for sitting on the sidewalk. Pt is homeless and is asking for something to eat. He reports drinking just 2 beers today. Denies any other complaints, such as head injury, difficulty walking, chest pain. Past Medical History Reviewed: Historical Data, Nursing Documentation, Vital Signs Vital Signs: Last Vital Signs Temp 98.6 F 09/07/18 22:47 Pulse 82 09/07/18 22:47 Resp 18 09/07/18 22:47 BP 122/70 09/07/18 22:47 Pulse Ox 98 09/07/18 22:47 Primary Care Provider: Procedure,Nonphys - Medical History PMH: Anxiety, Arthritis, Depression, Fractures (left leg), Seizures (alcohol related) Denies: Diabetes, Hepatitis, HIV, HTN, Chronic Kidney Disease, Sexually Transmitted Disease - Surgical History Surgical History: Denies: Appendectomy - Family History Family History: States: Unknown Family Hx - Social History Alcohol: > 2 Drinks/Day - Immunization History Hx Tetanus Toxoid Vaccination: No Hx Influenza Vaccination: Yes (2016) Hx Pneumococcal Vaccination: Yes - Home Medications Home Medications: Ambulatory Orders Medication Instructions Recorded Phenytoin 100 mg PO TID #90 ctb 07/25/18 - Allergies Allergies/Adverse Reactions: Allergies Allergy/AdvReac Type Severity Reaction Status Date / Time No Known Allergies Allergy Verified 09/07/18 22:47 Review of Systems Constitutional: Negative for: Fever Neurological: Negative for: Weakness, Numbness, Change in Speech, Confusion, Altered Mental Status, Headache Physical Exam - Reviewed Nursing Documentation Reviewed: Yes Vital Signs Reviewed: Yes - Physical Exam Comments: GENERAL APPEARANCE: Patient is awake, alert, oriented x 3, in no acute distress, malodorous, clear speech SKIN: Warm, dry; (-) cyanosis HEAD: (-) scalp swelling, (-) scalp tenderness. EYES: (-) conjunctival pallor, (-) scleral icterus, (-) nystagmus. ENMT: Mucous membranes moist. Airway patent: (-) stridor. NECK: (-) tenderness, (-) stiffness, (-) lymphadenopathy. HEART AND CARDIOVASCULAR: (-) irregularity; (-) murmur, (-) gallop. CHEST AND RESPIRATORY: (-) rales, (-) rhonchi, (-) wheezes; breath sounds equal. ABDOMEN: Soft, (-) distention, (-) tenderness, (-) guarding. NEURO AND PSYCH: Mental status as above. 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 Pupils equal and reactive; EOMI; (-) facial asymmetry; tongue and uvula midline. Strength and DTRs symmetric. steady gait - ECG O2 Sat by Pulse Oximetry: 98 Medical Decision Making Medical Decision Makin:15 pt brought in for alcohol intoxication pt is homeless awake, alert and oriented x3, walking with steady gait, clear speech, asking for food though eating chips with no problems -- accu check 23:35 glucose 119 23;45 pt continues to be well appearing and clinically stable for dc discussed results, diagnosis, treatment, return precautions and f/u with pt who is understanding, in agreement and stable for dc Disposition - Clinical Impression Clinical Impression: Alcohol intoxication - Patient ED Disposition Is Patient to be Admitted: No Counseled Patient/Family Regarding: Studies Performed, Diagnosis, Need For Followup - Disposition Referrals: your, doctor [Other] Disposition: Routine/Home Disposition Time: 23:45 Condition: STABLE Additional Instructions: Thank you for letting us take care of you today. The emergency medical care you received today was directed at your acute symptoms. If you were prescribed any medication, please fill it and take as directed. It may take several days for your symptoms to resolve. Return to the Emergency Department if your symptoms worsen, do not improve, or if you have any other problems. Please contact your doctor in 2 days for re-evaluation and follow up / or call one of the physicians/clinics you have been referred to that are listed on the Patient Visit Information form that is included in your discharge packet. Bring any paperwork you were given at discharge with you along with any medications you are taking to your follow up visit. Our treatment cannot replace ongoing medical care by a primary care provider (PCP) outside of the emergency department. Instructions: Alcohol Abuse and Alcoholism (DC) Forms: [employer] (Kyrgyz) Print Language: TURKISH - POA Present On Arrival: None
== END 2018-09-07 23:57 | disposition home or self-care (01) ==
LOC: H.ER 22:45
DX: F10.129 Alcohol abuse with intoxication, unspecified (principal); Z86.59 Personal history of other mental and behavioral disorders; Z59.0 Homelessness

== ENCOUNTER 2018-09-09 14:24 | Inpatient (IN) | payer MEDICAID, OTHER ==
[2018-09-09 14:26] VITALS: BMI 20.1
[2018-09-09] MEDS ORDERED: Permethrin 1% Kit 59 ML BOTTLE TOP STA (15:16)
[2018-09-09] MEDS ORDERED: Sodium Chloride 0.9% 1,000 ML IV STA (15:18)
--- NOTE | 2018-09-09 15:35 | ED PDOC ---
HPI: General Adult Time Seen by Provider: 09/09/18 15:16 Chief Complaint (Nursing): Seizure Chief Complaint (Provider): Seizure History Per: Patient History/Exam Limitations: no limitations Onset/Duration Of Symptoms: Sudden Onset Current Symptoms Are (Timing): Better Additional History Per: EMS Additional Complaint(s): 43 year old undomicile male was brought to the ED via EMS after the patient had a witnessed a seizure for approximately one minute at the skilled nursing prior to arrival. As per EMS, patient is responding fully. Currently, patient in the ED is awake, responding and states he is here to sleep. Patient needed decontamination and lice was found on the patient. Otherwise, he denies any pain, fever, chest pain, shortness of breath, nausea, vomiting, diarrhea, abdominal pain, urinary symptoms, tingling, weakness or numbness. PMD: no family provider Past Medical History Reviewed: Historical Data, Nursing Documentation, Vital Signs Vital Signs: Last Vital Signs Temp 99 F 09/09/18 14:28 Pulse 115 H 09/09/18 14:28 Resp 20 09/09/18 14:28 BP 100/68 09/09/18 14:28 Pulse Ox 96 09/09/18 14:28 Primary Care Provider: Doctor,Harper - Medical History PMH: Anxiety, Arthritis, Depression, Fractures (left leg), Seizures (alcohol related) Denies: Diabetes, Hepatitis, HIV, HTN, Chronic Kidney Disease, Sexually Transmitted Disease - Surgical History Surgical History: Denies: Appendectomy - Family History Family History: States: Unknown Family Hx - Immunization History Hx Tetanus Toxoid Vaccination: No Hx Influenza Vaccination: Yes (2016) Hx Pneumococcal Vaccination: Yes - Home Medications Home Medications: Ambulatory Orders Medication Instructions Recorded Phenytoin 100 mg PO TID #90 ctb 07/25/18 - Allergies Allergies/Adverse Reactions: Allergies Allergy/AdvReac Type Severity Reaction Status Date / Time No Known Allergies Allergy Verified 09/09/18 14:28 Review of Systems ROS Statement: Except As Marked, All Systems Reviewed And Found Negative Constitutional: Negative for: Fever Cardiovascular: Negative for: Chest Pain Respiratory: Negative for: Cough, Shortness of Breath Gastrointestinal: Negative for: Nausea, Vomiting, Abdominal Pain, Diarrhea Genitourinary Male: Negative for: Dysuria, Frequency, Incontinence, Hematuria Skin: Negative for: Rash Neurological: Positive for: Other (seizure ). Negative for: Weakness, Numbness Psych: Negative for: Suicidal ideation, Other (homicidal ideation ) Physical Exam - Reviewed Nursing Documentation Reviewed: Yes Vital Signs Reviewed: Yes - Physical Exam Appears: Positive for: Non-toxic, No Acute Distress. Negative for: Well (disheveled, lice noted on clothing ) Head Exam: Positive for: ATRAUMATIC, NORMOCEPHALIC. Negative for: NORMAL INSPECTION (hematoma on right frontal head ) Skin: Positive for: Normal Color, Warm, DRY Eye Exam: Positive for: EOMI, Normal appearance, PERRL ENT: Positive for: Normal ENT Inspection Neck: Positive for: Normal, Painless ROM Cardiovascular/Chest: Positive for: Regular Rate, Rhythm. Negative for: Murmur Respiratory: Positive for: Normal Breath Sounds. Negative for: Respiratory Distress Gastrointestinal/Abdominal: Positive for: Normal Exam, Soft. Negative for: Tenderness Extremity: Positive for: Normal ROM. Negative for: Tenderness, Pedal Edema, Deformity Neurological/Psych: Positive for: Awake, Alert, Normal Tone, Oriented (x3) - Laboratory Results Result Diagrams: 09/09/18 17:50 09/09/18 17:50 Interpretation Of Abn Labs: urine wbc - ECG ECG: Positive for: Interpreted By Me, Viewed By Me ECG Rhythm: Positive for: Normal QRS, Normal ST Segment, Sinus Rhythm O2 Sat by Pulse Oximetry: 96 (RA) Pulse Ox Interpretation: Normal - CT Scan/US ct Other Rad Studies (CT/US): Read By Radiologist Other Rad Interpretation: no acute - Progress ED Course And Treament: 1919: Pt. had a seizure that lasted 30 seconds witnessed by nurse. Will give ativan and banana bag for etoh withdrawal related symptoms. No pcp. Is more alert currently. 2155: Spoke with Dr. Hernandez. Will admit tele. Medical Decision Making Medical Decision Making: Time: 1516 Plan: Cervical spine w/o contrast CT Head w/o contrast CT Alcohol serum CMP Drug screen Troponin Urine dipstick CBC w/ differential Normal saline 1000 mls/hr Permethrin 1% Kit POC Re-evaluation 1903 Patient having a seizure and Ativan administered Scribe Attestation: Documented by Elizabeth Gallagher, acting as a scribe for Demian Vazquez MD Provider Scribe Attestation: All medical record entries made by the Scribe were at my direction and personally dictated by me. I have reviewed the chart and agree that the record accurately reflects my personal performance of the history, physical exam, medical decision making, and the department course for this patient. I have also personally directed, reviewed, and agree with the discharge instructions and disposition Disposition - Clinical Impression Clinical Impression: Alcohol related seizure, UTI (urinary tract infection), Lice - Patient ED Disposition Is Patient to be Admitted: Yes Counseled Patient/Family Regarding: Studies Performed, Diagnosis - Disposition Disposition Time: 19:00 Condition: FAIR
[2018-09-09 18:27] LABS: BASO # 0.1 K/uL (0.0-0.2); BASO % 0.9 % (0.0-2.0); EOS # 0.5 K/uL (0.0-0.7); EOS % 5.8 % (0.0-4.0); HEMOGLOBIN 13.9 g/dL (12.0-18.0); LYMPH # 1.2 K/uL (1.0-4.3); LYMPH % 14.2 % (20.0-40.0); MEAN CELL VOLUME 96.3 fl (80.0-94.0); MEAN CORPUSCULAR HEMOGLOBIN 32.8 pg (27.0-31.0); MEAN CORPUSCULAR HGB CONC 34.1 g/dL (33.0-37.0); MEAN PLATELET VOLUME 6.7 fl (7.2-11.7); MONO # 0.8 K/uL (0.0-0.8); MONO % 9.1 % (0.0-10.0); NEUT # 5.8 K/uL (1.8-7.0); RBC 4.22 Mil/uL (4.40-5.90); WHITE BLOOD COUNT 8.3 K/uL (4.8-10.8)
[2018-09-09 18:28] LABS: SQUAMOUS EPITHIAL < 1 /hpf (0-5); URINE BACTERIA RARE (<OCC); URINE BILIRUBIN NEGATIVE (NEGATIVE); URINE BLOOD MODERATE (NEGATIVE); URINE CLARITY CLOUDY (Clear); URINE COLOR YELLOW (YELLOW); URINE GLUCOSE (UA) NEG (NEGATIVE); URINE HYALINE CAST 0-2 /hpf (0-2); URINE LEUKOCYTE ESTERASE MOD Leu/uL (Negative); URINE PROTEIN 100 mg/dL (NEGATIVE); URINE UROBILINOGEN 0.2-1.0 mg/dL (0.2-1.0)
[2018-09-09 18:38] LABS: ALB/GLOB RATIO 1.4 (1.0-2.1); ALBUMIN 4.8 g/dL (3.5-5.0); ALT/SGPT 24 U/L (21-72); AST/SGOT 49 U/L (17-59); BLOOD UREA NITROGEN 11 mg/dl (9-20); CALCIUM 9.3 mg/dL (8.4-10.2); GFR NON-AFRICAN AMERICAN > 60
[2018-09-09 18:55] LABS: BARBITURATES, UR NEGATIVE (NEGATIVE); BENZODIAZEPINES, UR NEGATIVE (NEGATIVE); OPIATES, UR NEGATIVE (NEGATIVE); PHENCYCLIDINE, UR NEGATIVE (NEGATIVE)
[2018-09-09] MEDS ORDERED: Multivitamin (MVI) 10 ML, Folic Acid 1 MG, Thiamine 100 MG in Dextrose 5%/0.45% NS 1,00... IV ONE (19:14)
[2018-09-09] MEDS ORDERED: cefTRIAXone (Rocephin) 1 gm Inj IV ONE (19:27)
[2018-09-09] MEDS ORDERED: cefTRIAXone (Rocephin) 1 gm Inj ONE (20:04)
--- NOTE | 2018-09-09 21:52 | CT ---
Date of service: 09/09/2018 PROCEDURE: CT Cervical Spine without contrast HISTORY: Neck Pain. No history of recent/ related trauma provided. Possible seizure. COMPARISON: 11/19/2015. CT cervical spine. TECHNIQUE: Axial computed tomography images were obtained of the cervical spine without the use of intravenous contrast. Coronal and sagittal reformatted images were created and reviewed. Radiation dose: Total exam DLP = 284.88 mGy-cm. This CT exam was performed using one or more of the following dose reduction techniques: Automated exposure control, adjustment of the mA and/or kV according to patient size, and/or use of iterative reconstruction technique. FINDINGS: VERTEBRAE: No fracture. Normal alignment. No destructive bony lesion. DISCS/SPINAL CANAL/NEURAL FORAMINA: No significant central canal or neural foraminal stenosis. Discs heights are grossly preserved. PARASPINAL SOFT TISSUES: Unremarkable. OTHER FINDINGS: None. IMPRESSION: No acute or significant findings related to/ accounting for the clinical presentation. No significant interval change compared to the prior examination(s).
--- NOTE | 2018-09-09 21:52 | CT ---
Date of service: 09/09/2018 PROCEDURE: CT HEAD WITHOUT CONTRAST. HISTORY: headache COMPARISON: Noncontrast head CT performed 07/24/18 TECHNIQUE: Axial computed tomography images were obtained through the head/brain without intravenous contrast. Radiation dose: Total exam DLP = 948.45 mGy-cm. This CT exam was performed using one or more of the following dose reduction techniques: Automated exposure control, adjustment of the mA and/or kV according to patient size, and/or use of iterative reconstruction technique. FINDINGS: HEMORRHAGE: No intracranial hemorrhage. BRAIN: Diffuse atrophy with prominence of the ventricles and sulci noted. No mass effect or edema. Intracranial atherosclerosis. Chronic appearing bilateral basal ganglia lacunar type infarcts. Scattered periventricular and subcortical white matter hypodensities, which are nonspecific, but often seen with chronic microvascular ischemic disease. Please note that MRI with diffusion imaging is more sensitive in the detection of acute ischemic event. VENTRICLES: No hydrocephalus. CALVARIUM: Unremarkable. PARANASAL SINUSES: Partially imaged mucosal thinking involving bilateral maxillary sinuses. Small fluid within the left maxillary sinus. MASTOID AIR CELLS: Unremarkable as visualized. No inflammatory changes. OTHER FINDINGS: Chronic appearing bilateral nasal bone fracture deformities. IMPRESSION: Generalized atrophy. Nonspecific white matter changes. Chronic appearing bilateral basal ganglia lacunar type infarcts. Partially imaged mucosal thinking involving bilateral maxillary sinuses. Small fluid within the left maxillary sinus. Correlate clinically for sinusitis. Chronic appearing bilateral nasal bone fracture deformities.
[2018-09-10] MEDS ORDERED: Poly vi sol LIQUID PO SCH (09:00)
--- NOTE | 2018-09-10 09:30 | CARD ---
APPROVED REPORT Date of service: 09/09/2018 EKG Measurement Heart [id number] <Conclusion> Normal sinus rhythm Normal ECG
[2018-09-10] MEDS: Multivitamin With Minerals Tab PO SCH (09:45)
--- NOTE | 2018-09-10 11:51 | CP.PCM.CON ---
History of Present Illness - History of Present Illness History of Present Illness: Neurology Consultation Note: Consult requested by Dr. Hernandez The patient is a 43-year-old homeless man, who was witnessed having a seizure lasting about one minute at the senior living. He was brought in to the ED and was more alert, then back to baseline. CT head did not show any acute findings. Labs showed hyponatremia, alcohol level lower than 10 and no illicit substances in the urine toxicology. According to records, he has had multiple admissions over the last two months for alcohol intoxication and substance abuse. Review of Systems - Review of Systems All systems: reviewed and no additional remarkable complaints except Past Patient History - Infectious Disease Hx of Infectious Diseases: None - Tetanus Immunizations Tetanus Immunization: Unknown - Past Medical History & Family History Past Medical History?: Yes - Past Social History Smoking Status: Current Some Days Smoker - CARDIAC Hx Cardiac Disorders: No Hx Hypertension: No - PULMONARY Hx Respiratory Disorders: No Hx Tuberculosis: No - NEUROLOGICAL Hx Neurological Disorder: Yes Hx Seizures: Yes (alcohol related) - HEENT Hx HEENT Problems: No - RENAL Hx Chronic Kidney Disease: No - ENDOCRINE/METABOLIC Hx Endocrine Disorders: No - HEMATOLOGICAL/ONCOLOGICAL Hx Blood Disorders: No Hx AIDS: No Hx Human Immunodeficiency Virus (HIV): No - INTEGUMENTARY Hx Dermatological Problems: Yes Hx Cellulitis: Yes - MUSCULOSKELETAL/RHEUMATOLOGICAL Hx Musculoskeletal Disorders: Yes Hx Arthritis: Yes Hx Falls: Yes Hx Fractures: Yes (left leg) - GASTROINTESTINAL Hx Gastrointestinal Disorders: No - GENITOURINARY/GYNECOLOGICAL Hx Genitourinary Disorders: No Hx Sexually Transmitted Disorders: No - PSYCHIATRIC Hx Anxiety: Yes Hx Depression: Yes - SURGICAL HISTORY Hx Surgeries: No Hx Appendectomy: No - ANESTHESIA Hx Anesthesia: Yes Hx Anesthesia Reactions: No Hx Malignant Hyperthermia: No Has any member of the family had a problem w/ anesthesia?: No Meds Allergies/Adverse Reactions: Allergies Allergy/AdvReac Type Severity Reaction Status Date / Time No Known Allergies Allergy Verified 09/09/18 14:28 - Medications Medications: Current Medications Multivitamins/Minerals (Therapeutic-M Tab) 1 tab PO DAILY YUNI Last Admin: 09/10/18 09:45 Dose: 1 tab Physical Exam - Constitutional Appears: Well, Unkempt - Head Exam Head Exam: ATRAUMATIC, NORMAL INSPECTION, NORMOCEPHALIC - Eye Exam Eye Exam: EOMI, Normal appearance, PERRL Pupil Exam: NORMAL ACCOMODATION, PERRL - ENT Exam ENT Exam: Mucous Membranes Moist, Normal Exam - Neck Exam Neck exam: Positive for: Normal Inspection - Respiratory Exam Respiratory Exam: Clear to Auscultation Bilateral, NORMAL BREATHING PATTERN - Cardiovascular Exam Cardiovascular Exam: REGULAR RHYTHM, +S1, +S2 - GI/Abdominal Exam GI & Abdominal Exam: Normal Bowel Sounds, Soft. absent: Tenderness - Extremities Exam Extremities exam: Positive for: normal inspection - Back Exam Back exam: NORMAL INSPECTION - Neurological Exam Neurological exam: Alert, CN II-XII Intact, Normal Gait, Oriented x3, Reflexes Normal - Psychiatric Exam Psychiatric exam: Normal Affect, Normal Mood - Skin Skin Exam: Dry, Intact, Normal Color, Warm Results - Vital Signs Recent Vital Signs: Last Vital Signs Temp 98.6 F 09/10/18 07:53 Pulse 94 H 09/10/18 07:53 Resp 20 09/10/18 07:53 BP 149/79 09/10/18 07:53 Pulse Ox 97 09/10/18 07:53 - Labs Result Diagrams: 09/09/18 17:50 09/09/18 17:50 Labs: Laboratory Results - last 24 hr 09/09/18 09/09/18 09/09/18 16:36 17:50 17:50 WBC 8.3 RBC 4.22 L Hgb 13.9 Hct 40.6 MCV 96.3 H MCH 32.8 H MCHC 34.1 RDW 15.0 H Plt Count 322 D MPV 6.7 L Neut % (Auto) 70.0 Lymph % (Auto) 14.2 L King % (Auto) 9.1 Eos % (Auto) 5.8 H Baso % (Auto) 0.9 Neut # (Auto) 5.8 Lymph # (Auto) 1.2 King # (Auto) 0.8 Eos # (Auto) 0.5 Baso # (Auto) 0.1 Sodium 129 L Potassium 4.1 Chloride 91 L Carbon Dioxide 26 Anion Gap 16 BUN 11 Creatinine 0.6 L Est GFR ( Amer) > 60 Est GFR (Non-Af Amer) > 60 POC Glucose (mg/dL) 124 H Random Glucose 90 Calcium 9.3 Total Bilirubin 0.7 AST 49 ALT 24 Alkaline Phosphatase 110 Troponin I < 0.0120 Total Protein 8.0 Albumin 4.8 Globulin 3.3 Albumin/Globulin Ratio 1.4 Urine Color Urine Clarity Urine pH Ur Specific Nichols Urine Protein Urine Glucose (UA) Urine Ketones Urine Blood Urine Nitrate Urine Bilirubin Urine Urobilinogen Ur Leukocyte Esterase Urine RBC (Auto) Urine Microscopic WBC Ur Squamous Epith Cells Urine Bacteria Hyaline Casts Urine Opiates Screen Urine Methadone Screen Ur Barbiturates Screen Ur Phencyclidine Scrn Ur Amphetamines Screen U Benzodiazepines Scrn U Oth Cocaine Metabols U Cannabinoids Screen Alcohol, Quantitative < 10 09/09/18 09/09/18 17:50 18:04 WBC RBC Hgb Hct MCV MCH MCHC RDW Plt Count MPV Neut % (Auto) Lymph % (Auto) King % (Auto) Eos % (Auto) Baso % (Auto) Neut # (Auto) Lymph # (Auto) King # (Auto) Eos # (Auto) Baso # (Auto) Sodium Potassium Chloride Carbon Dioxide Anion Gap BUN Creatinine Est GFR ( Amer) Est GFR (Non-Af Amer) POC Glucose (mg/dL) Random Glucose Calcium Total Bilirubin AST ALT Alkaline Phosphatase Troponin I Total Protein Albumin Globulin Albumin/Globulin Ratio Urine Color Yellow Urine Clarity Cloudy Urine pH 6.0 Ur Specific Nichols 1.013 Urine Protein 100 Urine Glucose (UA) Neg Urine Ketones Negative Urine Blood Moderate Urine Nitrate Negative Urine Bilirubin Negative Urine Urobilinogen 0.2-1.0 Ur Leukocyte Esterase Mod Urine RBC (Auto) 9 H Urine Microscopic WBC 22 H Ur Squamous Epith Cells < 1 Urine Bacteria Rare Hyaline Casts 0-2 Urine Opiates Screen Negative Urine Methadone Screen Negative Ur Barbiturates Screen Negative Ur Phencyclidine Scrn Negative Ur Amphetamines Screen Negative U Benzodiazepines Scrn Negative U Oth Cocaine Metabols Negative U Cannabinoids Screen Negative Alcohol, Quantitative Assessment & Plan (1) Alcohol related seizure Assessment and Plan: The patient does have chronic lacunar infarcts on the CT head. These could potentially be epileptogenic especially in the setting of alcohol withdrawal. I recommend starting Neurontin 300 mg TID for seizure prevention and possibly to help with alcohol withdrawal. No further recommendations from a neurological perspective at this time. Thank you for this consultation. Status: Acute
--- NOTE | 2018-09-11 06:41 | HP ---
HISTORY OF PRESENT ILLNESS: The patient is a 43-year-old male with a history of ETOH abuse and seizure disorder, presented to the emergency room after sustaining a seizure. The patient stated that he was not taking his antiseizure medications, and he was living in a half-way. REVIEW OF SYSTEMS: Other review of systems is negative. ALLERGIES: NO KNOWN ALLERGIES. MEDICATIONS: The patient was supposed to be on phenytoin 100 mg 3 times a day. PAST MEDICAL HISTORY: As above. SOCIAL HISTORY: ETOH abuse. Denied smoking or substance abuse. FAMILY HISTORY: Noncontributory. PHYSICAL EXAMINATION: GENERAL: Not in any cardiopulmonary distress. VITAL SIGNS: Blood pressure 128/77, temperature 98.6, respiratory rate 16, and pulse 82. HEENT: Pupils equal and reactive to light, normal-appearing mucosa of the conjunctivae, oropharyngeal, and nasopharyngeal mucosa. NECK: Supple. No JVD, no carotid bruits, no lymph nodes, no thyromegaly. CHEST AND LUNGS: Bilateral symmetrical expansion, good air exchange. No rales, no rhonchi. CARDIOVASCULAR SYSTEM: PMI not localized. S1 and S2. No additional sounds. ABDOMEN: Normoactive bowel sounds. No tenderness, no organomegaly, and no masses. EXTREMITIES: No cyanosis, no clubbing, no edema. CENTRAL NERVOUS SYSTEM: Alert, awake, and oriented x2; and the patient has unsteadiness and dysfunctional gait. ASSESSMENT: Seizure disorder, history of alcohol abuse. Head CAT scan was done and it was negative, no subdural hematoma, and it showed chronic appearing bilateral nasal bone fracture deformities. PLAN: Neurology consult and follow the recommendations, seizure precautions, DVT precautions, and we will give thiamine and multivitamin. Kayce Hernandez MD
[2018-09-11 07:01] LABS: BLOOD UREA NITROGEN 9 mg/dl (9-20); CALCIUM 8.7 mg/dL (8.4-10.2); GFR NON-AFRICAN AMERICAN > 60
[2018-09-11] MEDS: Multivitamin With Minerals Tab PO SCH (09:50)
[2018-09-12] MEDS: Multivitamin With Minerals Tab PO SCH (09:15)
[2018-09-13] VITALS: RESP 18
[2018-09-13 08:25] VITALS: BP 115/74; TEMP 98.5; O2SAT 97
[2018-09-13] MEDS: Multivitamin With Minerals Tab PO SCH (08:45)
[2018-09-13] MEDS ORDERED: Ciprofloxacin 400mg/200ml D5W 400 MG/200 ML BAG IVPB SCH (09:00)
[2018-09-13 14:04] VITALS: PULSE 80
--- NOTE | 2018-09-13 15:27 | PN ---
DATE: 09/11/2018 DAILY PROGRESS NOTE SUBJECTIVE: The patient is seen today, 09/11/2018. He was on anti-seizure medication Neurontin and no further seizure or alcohol withdrawal was noticed. PHYSICAL EXAMINATION: VITAL SIGNS: Blood pressure 111/69, temperature 99.2, respiratory rate 20, and pulse 88. HEENT: Pupils are equal and reactive to light. Normal-appearing mucosa of the conjunctivae, oropharynx, and nasal membrane mucosa. NECK: Supple. No JVD. No carotid bruits. No lymph nodes. No thyromegaly. CHEST AND LUNGS: Bilateral symmetrical expansion. Good air exchange. No rales. No rhonchi. CARDIOVASCULAR SYSTEM: PMI is not localized. S1 and S2. No additional sounds. ABDOMEN: Normoactive bowel sounds. No tenderness. No organomegaly. No masses. EXTREMITIES: No cyanosis. No clubbing. No edema. CENTRAL NERVUS SYSTEM: Alert, awake, and oriented x1. The patient has unsteadiness and impaired coordination, but no neurological deficits could be appreciated otherwise. ASSESSMENT: 1. Alcohol-related seizures. 2. Ataxic gait. PLAN: Continue current multivitamin and thiamine and anti-seizure medication Neurontin as ordered by neurologist. Continue physical therapy. Kayce Hernandez MD
--- NOTE | 2018-09-14 08:36 | DS ---
The patient is seen today, 09/13/2018. REASON FOR ADMISSION: A 43-year-old male who was admitted for seizure secondary to noncompliance to seizure medications. COURSE OF HOSPITALIZATION: The patient was admitted to medical floor at telemetry floor and he had seizure precautions and neuro check. The patient had a Neurology consult done by Dr. Ott and seizure medication was switched to Neurontin that also could have additional help of alcohol detoxification. The patient is discharged on Neurontin 300 mg three times a day and ampicillin 500 mg four times a day for 5 days. FINAL DIAGNOSES: 1. Seizure disorder. 2. Alcohol abuse. 3. Urinary tract infection. [facility] MD David
== END 2018-09-13 14:34 | disposition home or self-care (01) | DRG 889 ==
LOC: H.ER 14:24 → H.ERHOLD 22:02 → H.TEL 09-10 01:28 → OBSVTOIN 09-11 09:50 → H.MEDSURG1 09-12 01:55
PROVIDERS: ADMIT Internal Medicine; ATTEND Internal Medicine
DX: G40.909 Epilepsy, unspecified, not intractable, without status epilepticus (principal); N39.0 Urinary tract infection, site not specified; E87.1 Hypo-osmolality and hyponatremia; F10.10 Alcohol abuse, uncomplicated; B85.2 Pediculosis, unspecified; Z91.14 Patient's other noncompliance with medication regimen; Y90.0 Blood alcohol level of less than 20 mg/100 ml; Z59.0 Homelessness; F41.9 Anxiety disorder, unspecified; F32.9 Major depressive disorder, single episode, unspecified; M19.90 Unspecified osteoarthritis, unspecified site; F17.200 Nicotine dependence, unspecified, uncomplicated

== ENCOUNTER 2018-09-22 03:23 | Inpatient (IN) | payer OTHER ==
[2018-09-22 03:23] VITALS: BMI 20.1
[2018-09-22] MEDS ORDERED: Fosphenytoin 100 mg/2 ml Inj IV ONE (04:08)
[2018-09-22] MEDS ORDERED: Fosphenytoin 100 mg/2 ml Inj IVPB ONE (04:08)
[2018-09-22] MEDS ORDERED: Sodium Chloride 0.9% 1,000 ML IV STA (04:08)
[2018-09-22] MEDS ORDERED: FOSPHENYTOIN IVPB STA (04:18)
[2018-09-22] MEDS ORDERED: SODIUM CHLORIDE 0.9% IVPB STA (04:18)
--- NOTE | 2018-09-22 04:21 | ED PDOC ---
HPI: General Adult Time Seen by Provider: 09/22/18 03:29 Chief Complaint (Nursing): Seizure Chief Complaint (Provider): seizure History Per: Patient History/Exam Limitations: no limitations Onset/Duration Of Symptoms: Mins (just prior to arrival) Current Symptoms Are (Timing): Gone Now Severity: Moderate Additional Complaint(s): 43 year old homeless male with a past medical history of alcohol abuse and seizure disorder (not compliant with medications) is brought into the ED for an evaluation of a seizure that occurred just prior to arrival. Patient states that he was at the senior living where he thinks he had a seizure, but does not remember. Seizure was unwitnessed by pediatrician/medical doctor. Patient reports having 2x beers today (unsure what time) and denies using drugs. Patient denies tongue biting, loss of urine control, or incontinence of stool. PMD: Rob Holm MD Past Medical History Reviewed: Historical Data, Nursing Documentation, Vital Signs Vital Signs: Last Vital Signs Temp 98.2 F 09/22/18 03:33 Pulse 120 H 09/22/18 03:33 Resp 20 09/22/18 03:33 BP 107/64 09/22/18 03:33 Pulse Ox 96 09/22/18 03:33 SOMMER Report Viewed: Yes Primary Care Provider: FAMILY PROVIDER,NO - Medical History PMH: Anxiety, Arthritis, Depression, Fractures (left leg), Seizures (alcohol related) Denies: Diabetes, Hepatitis, HIV, HTN, Chronic Kidney Disease, Sexually Transmitted Disease - Surgical History Surgical History: Denies: Appendectomy - Family History Family History: States: No Known Family Hx - Social History Alcohol: > 2 Drinks/Day - Immunization History Hx Tetanus Toxoid Vaccination: No Hx Influenza Vaccination: Yes (2016) Hx Pneumococcal Vaccination: Yes - Home Medications Home Medications: Ambulatory Orders Medication Instructions Recorded No Known Home Med 09/22/18 - Allergies Allergies/Adverse Reactions: Allergies Allergy/AdvReac Type Severity Reaction Status Date / Time No Known Allergies Allergy Verified 09/22/18 03:35 Review of Systems ROS Statement: Except As Marked, All Systems Reviewed And Found Negative ENT: Negative for: Other (tongue biting) Gastrointestinal: Negative for: Other (incontinence of stool) Genitourinary Male: Negative for: Incontinence Neurological: Positive for: Seizures Physical Exam - Reviewed Nursing Documentation Reviewed: Yes Vital Signs Reviewed: Yes - Physical Exam Appears: Positive for: Non-toxic, No Acute Distress. Negative for: Well (dissheveled) Head Exam: Positive for: ATRAUMATIC, NORMOCEPHALIC Skin: Positive for: Normal Color, Warm, Dry Eye Exam: Positive for: Normal appearance ENT: Negative for: Other (tongue vesiculations) Cardiovascular/Chest: Positive for: Regular Rate, Rhythm Respiratory: Positive for: Normal Breath Sounds Neurological/Psych: Positive for: Awake, Alert, Oriented (3x). Negative for: Motor/Sensory Deficits - Laboratory Results Result Diagrams: 09/22/18 04:35 09/22/18 04:35 - ECG O2 Sat by Pulse Oximetry: 96 (RA) Pulse Ox Interpretation: Normal Medical Decision Making Medical Decision Makin:29 Initial impression: 43 year old male with a questionable seizure. Unclear is patient had a true seizure: no postictal state, evidence of seizure such as tongue biting, and no clinically indicated alcohol withdrawal. Will load with dilantin and further monitor for seizure activity. Initial plan: * VBG * alcohol serum * BMP * CBC with differential * IV NS 1,000 ml IV 1,000 mls./hr * cerebyx 1185 mg IV * reevaluation 4:40 Witnessed seizure while in ED. Ativan given Suctioned and placed on side Patient currently in postictal state. Will admit for further management of alcohol withdrawal to Dr. Swanson's service Case disucssed with Dr. Ott who remembers patient and has no further recommendations at this time. Scribe Attestation: Documented by Sachi De León, acting as a scribe for Du Aviles MD. Provider Scribe Attestation: All medical record entries made by the Scribe were at my direction and persona lly dictated by me. I have reviewed the chart and agree that the record accurately reflects my personal performance of the history, physical exam, medical decision making, and the department course for this patient. I have also personally directed, reviewed, and agree with the discharge instructions and disposition. Disposition - Clinical Impression Clinical Impression: Alcohol withdrawal seizure - Patient ED Disposition Is Patient to be Admitted: Yes Discussed With Dr.: Alex Swanson Doctor Will See Patient In The: Hospital Counseled Patient/Family Regarding: Studies Performed, Diagnosis - Disposition Disposition Time: 04:00 Condition: FAIR
[2018-09-22 04:44] LABS: BASO # 0.1 K/uL (0.0-0.2); BASO % 0.9 % (0.0-2.0); EOS # 0.3 K/uL (0.0-0.7); EOS % 3.8 % (0.0-4.0); HEMOGLOBIN 13.3 g/dL (12.0-18.0); LYMPH # 0.9 K/uL (1.0-4.3); LYMPH % 11.5 % (20.0-40.0); MEAN CELL VOLUME 95.5 fl (80.0-94.0); MEAN CORPUSCULAR HEMOGLOBIN 33.5 pg (27.0-31.0); MEAN CORPUSCULAR HGB CONC 35.1 g/dL (33.0-37.0); MONO # 0.7 K/uL (0.0-0.8); MONO % 9.2 % (0.0-10.0); NEUT # 5.6 K/uL (1.8-7.0); NEUT % 74.6 % (50.0-75.0); NRBC % 0.2 % (0.0-0.0); RBC 3.98 Mil/uL (4.40-5.90); RED CELL DISTRIBUTION WIDTH 14.4 % (11.5-14.5); WHITE BLOOD COUNT 7.5 K/uL (4.8-10.8)
[2018-09-22 04:46] LABS: VENOUS BLOOD GAS BASE EXCESS 1.9 mmol/L (0.0-2.0); VENOUS BLOOD GAS PCO2 41 mmHg (40-60); VENOUS BLOOD GAS PO2 43 mm/Hg (30-55); VENOUS BLOOD PH 7.42 (7.32-7.43)
[2018-09-22 04:56] LABS: BLOOD UREA NITROGEN 9 mg/dl (9-20); CALCIUM 8.9 mg/dL (8.4-10.2); GFR NON-AFRICAN AMERICAN > 60
[2018-09-22] MEDS ORDERED: Multivitamin (MVI) 10 ML, Thiamine 100 MG, Folic Acid 1 MG in Dextrose 5%/0.45% NS 1,00... IV ONE (06:30)
--- NOTE | 2018-09-22 07:56 | RAD ---
Date of service: 09/22/2018 HISTORY: seizure COMPARISON: 06/21/2008 TECHNIQUE: 1 view obtained. FINDINGS: LUNGS: No interval consolidation. Bilateral hilar and infrahilar bronchovascular markings appear coarse-shallower inspiration accentuates this. Appearance similar PLEURA: No significant pleural effusion identified, no pneumothorax apparent. CARDIOVASCULAR: No aortic atherosclerotic calcification present. Normal cardiac size. No pulmonary vascular congestion. OSSEOUS STRUCTURES: Right posterior inferior slight rib deformities-old healed fractures here inferred no change compared to an earlier chest x-ray of 05/18/2017. VISUALIZED UPPER ABDOMEN: Normal. OTHER FINDINGS: None. IMPRESSION: Current exam more shallow in inspiration. No interval consolidation appreciated. Other findings as above.
--- NOTE | 2018-09-22 09:02 | CT ---
Date of service: 09/22/2018 PROCEDURE: CT HEAD WITHOUT CONTRAST. HISTORY: seizure x 2 today COMPARISON: 09/09/2018 TECHNIQUE: Axial computed tomography images were obtained through the head/brain without intravenous contrast. Radiation dose: Total exam DLP = 1353.34 mGy-cm. This CT exam was performed using one or more of the following dose reduction techniques: Automated exposure control, adjustment of the mA and/or kV according to patient size, and/or use of iterative reconstruction technique. FINDINGS: HEMORRHAGE: No intracranial hemorrhage. BRAIN: No mass effect or edema. There is generalized cerebral atrophy similar-appearing. There are periventricular, subcortical and deep white matter hypodensities all similar appearing compatible with chronic microvascular ischemic disease. Right thalamic lacune-similar VENTRICLES: Unremarkable. No hydrocephalus. CALVARIUM: No interval calvarial fracture. Chronic appearing nasal bone fracture. PARANASAL SINUSES: Chronic bilateral maxillary ethmoid and sphenoid sinusitis. MASTOID AIR CELLS: Unremarkable as visualized. No inflammatory changes. OTHER FINDINGS: None. IMPRESSION: No intracranial hemorrhage or mass effect. Similar cerebral atrophy. Similar white matter changes compatible with chronic microvascular disease. Similar right thalamic lacune. Chronic appearing paranasal sinusitis. Chronic appearing nasal bone fracture. Concordant results (preliminary interpretation) provided by [email or web address].
[2018-09-22 20:11] VITALS: RESP 18
[2018-09-23 05:44] LABS: BLOOD UREA NITROGEN 8 mg/dl (9-20); CALCIUM 8.7 mg/dL (8.4-10.2); GFR NON-AFRICAN AMERICAN > 60; MEAN CELL VOLUME 96.2 fl (80.0-94.0); MEAN CORPUSCULAR HEMOGLOBIN 32.6 pg (27.0-31.0); MEAN CORPUSCULAR HGB CONC 33.9 g/dL (33.0-37.0); RBC 3.97 Mil/uL (4.40-5.90); RED CELL DISTRIBUTION WIDTH 14.9 % (11.5-14.5); WHITE BLOOD COUNT 6.3 K/uL (4.8-10.8)
[2018-09-23 07:45] VITALS: BP 110/69; PULSE 77; TEMP 98.6; O2SAT 97
--- NOTE | 2018-09-23 07:53 | CP.PCM.HP ---
Past Patient History - Infectious Disease Hx of Infectious Diseases: None - Tetanus Immunizations Tetanus Immunization: Unknown - Past Medical History & Family History Past Medical History?: Yes - Past Social History Alcohol: > 2 Drinks/Day - CARDIAC Hx Hypertension: No - PULMONARY Hx Respiratory Disorders: No Hx Tuberculosis: No - NEUROLOGICAL Hx Seizures: Yes (alcohol related) - HEENT Hx HEENT Problems: No - RENAL Hx Chronic Kidney Disease: No - ENDOCRINE/METABOLIC Hx Endocrine Disorders: No - HEMATOLOGICAL/ONCOLOGICAL Hx Human Immunodeficiency Virus (HIV): No - INTEGUMENTARY Hx Dermatological Problems: Yes Hx Cellulitis: Yes - MUSCULOSKELETAL/RHEUMATOLOGICAL Hx Arthritis: Yes Hx Fractures: Yes (left leg) - GASTROINTESTINAL Hx Gastrointestinal Disorders: No - GENITOURINARY/GYNECOLOGICAL Hx Sexually Transmitted Disorders: No - PSYCHIATRIC Hx Anxiety: Yes Hx Depression: Yes - SURGICAL HISTORY Hx Appendectomy: No - ANESTHESIA Hx Anesthesia: Yes Hx Anesthesia Reactions: No Hx Malignant Hyperthermia: No Meds Allergies/Adverse Reactions: Allergies Allergy/AdvReac Type Severity Reaction Status Date / Time No Known Allergies Allergy Verified 09/22/18 03:35 Results - Vital Signs Recent Vital Signs: Last Vital Signs Temp 98.6 F 09/23/18 07:45 Pulse 77 09/23/18 07:45 Resp 18 09/23/18 07:45 BP 110/69 09/23/18 07:45 Pulse Ox 97 09/23/18 07:45 - Labs Result Diagrams: 09/23/18 04:20 09/23/18 04:20 Labs: Laboratory Results - last 24 hr 09/23/18 09/23/18 04:20 04:20 WBC 6.3 RBC 3.97 L Hgb 13.0 Hct 38.2 MCV 96.2 H MCH 32.6 H MCHC 33.9 RDW 14.9 H Plt Count 429 H Sodium 132 Potassium 3.7 Chloride 97 L Carbon Dioxide 30 Anion Gap 9 L BUN 8 L Creatinine 0.6 L Est GFR ( Amer) > 60 Est GFR (Non-Af Amer) > 60 Random Glucose 84 Calcium 8.7
--- NOTE | 2018-09-23 08:23 | HP ---
HISTORY OF PRESENT ILLNESS: Mr. Braxton is a 43-year-old male, chronic alcoholic, who was admitted via the emergency room because of witnessed seizure. He indicates that he has seizures whenever he does not drink and goes through alcohol withdrawal. His last drink was 24 hours prior to presentation and he indicates that he only had two beers. PAST MEDICAL HISTORY: Remarkable for recurrent admissions to hospital for alcohol withdrawal seizures and chronic alcoholism. He presently is homeless. FAMILY HISTORY: No family history is obtained. SOCIAL HISTORY: He does not use drugs, but drinks alcohol heavily. PHYSICAL EXAMINATION: GENERAL: The patient is alert, responds appropriately to questions but falls asleep. He has tremors of all extremities. VITAL SIGNS: Remarkable for blood pressure of 114/60, respiratory rate is 18, he is afebrile, O2 sat 97% on room air. SKIN: Shows poor turgor. The patient appears unkempt. Hair is disheveled. Mouth shows poor hygiene. LUNGS: Fair aeration. HEART: Regular. ABDOMEN: Soft, nontender, no organomegaly. EXTREMITIES: No edema or cyanosis, but stasis changes of both lower extremities with unkempt nails. LABORATORY DATA: WBC 7.5, hemoglobin 13.3, platelet count 458,000. Sodium 130, potassium 4.1, BUN 9, creatinine 0.6. Alcohol level less than 10. Venous blood gas pH 7.42, pO2 of 43, pCO2 of 41, O2 saturation 85.1. CT scan of the head no intracranial hemorrhage, no mass effect, cerebral atrophy, chronic appearing paranasal sinusitis, chronic appearing nasal bone fracture. Chest x-ray, shallow inspiration, otherwise unremarkable. There is right posterior inferior rib deformities, which is compatible with old healed fractures, unchanged from 05/18/2017. IMPRESSION: Alcohol withdrawal seizures, history of chronic alcoholism with impending delirium tremens, hyponatremia probably nutritional. PLAN: Monitor the patient in hospital, would give IV dextrose normal saline, Neurology evaluation already requested, seizure precautions ordered, DT precautions ordered. We will give Ativan p.r.n. to prevent alcohol withdrawal. We will also give thiamine and folic acid. Civil Cadd Technician will see the patient regarding disposition. Alex Swanson MD [facility] # [phone]
--- NOTE | 2018-09-23 08:55 | CP.PCM.PN ---
Subjective - Date & Time of Evaluation Date of Evaluation: 09/23/18 Time of Evaluation: 08:55 - Subjective Subjective: SEIZURE FREE AWAKE/ALERT AND ORIENTED X 3 WANTS TO SIGN OUT AMA NO TREMORS OF EXTREMITIES NO NEURO DEFICITS Objective - Vital Signs/Intake and Output Vital Signs (last 24 hours): Temp Pulse Resp BP Pulse Ox 98.6 F 77 18 110/69 97 09/23/18 07:45 09/23/18 07:45 09/23/18 07:45 09/23/18 07:45 09/23/18 07:45 - Medications Medications: Current Medications Folic Acid (Folic Acid) 1 mg PO DAILY [facility] Last Admin: 09/23/18 08:01 Dose: 1 mg Dextrose/Sodium Chloride (Dextrose 5%-0.45% Ns 500 Ml) 500 mls @ 80 mls/hr IV .Q6H15M [facility] Stop: 09/23/18 09:32 Last Admin: 09/23/18 06:20 Dose: Not Given Lorazepam (Ativan) 1 mg PO Q8 PRN PRN Reason: Agitation Thiamine HCl (Vitamin B1 Tab) 100 mg PO DAILY [facility] Last Admin: 09/23/18 08:01 Dose: 100 mg - Labs Labs: 09/23/18 04:20 09/23/18 04:20 - Constitutional Appears: Well - Head Exam Head Exam: ATRAUMATIC, NORMAL INSPECTION, NORMOCEPHALIC - Eye Exam Eye Exam: EOMI, Normal appearance, PERRL Pupil Exam: NORMAL ACCOMODATION, PERRL - ENT Exam ENT Exam: Mucous Membranes Moist, Normal Exam - Neck Exam Neck Exam: Full ROM, Normal Inspection. absent: Lymphadenopathy - Respiratory Exam Respiratory Exam: Clear to Ausculation Bilateral, NORMAL BREATHING PATTERN - Cardiovascular Exam Cardiovascular Exam: REGULAR RHYTHM, +S1, +S2. absent: Murmur - GI/Abdominal Exam GI & Abdominal Exam: Soft, Normal Bowel Sounds. absent: Tenderness - Rectal Exam Rectal Exam: NORMAL INSPECTION - Extremities Exam Extremities Exam: Full ROM, Normal Capillary Refill, Normal Inspection. absent: Joint Swelling, Pedal Edema - Back Exam Back Exam: NORMAL INSPECTION - Neurological Exam Neurological Exam: Alert, Awake, CN II-XII Intact, Normal Gait, Oriented x3 - Psychiatric Exam Psychiatric exam: Normal Affect, Normal Mood - Skin Skin Exam: Dry, Intact, Normal Color, Warm Assessment and Plan - Assessment and Plan (Free Text) Assessment: ALCOHOL WITHDRAWAL SEIZURES--RESOLVED HX OF CHRONIC ALCOHOLISM HOMELESS Plan: PT INSISTS ON SIGNING IOUT AGAINST MEDICAL ADVISE HE UNDERSTANDS THE NEED TO STAY IN HOSPITAL FOR FURTHER RX BUT DECLINED.
== END 2018-09-23 09:47 | disposition left against medical advice (07) | DRG 749 ==
LOC: H.ER 03:23 → H.ERHOLD 06:10 → H.TEL 09:00
PROVIDERS: ADMIT Internal Medicine Pulmonary Disease; ATTEND Internal Medicine Pulmonary Disease
DX: F10.239 Alcohol dependence with withdrawal, unspecified (principal); E87.1 Hypo-osmolality and hyponatremia; G40.89 Other seizures; Z59.0 Homelessness; Z91.14 Patient's other noncompliance with medication regimen; Y90.0 Blood alcohol level of less than 20 mg/100 ml

== ENCOUNTER 2018-09-27 21:57 | Emergency (ER) | payer MEDICAID, OTHER ==
[2018-09-27 22:00] VITALS: RESP 16; O2SAT 96; BMI 21.6
--- NOTE | 2018-09-27 22:33 | ED PDOC ---
HPI: Psych/Substance Abuse Time Seen by Provider: 09/27/18 22:23 Chief Complaint (Nursing): Alcohol Ingestion Chief Complaint (Provider): Alcohol Intoxication ED Caveat: Intoxicated History Per: Patient, EMS History/Exam Limitations: intoxication Additional Complaint(s): Patient is a 43 year old homeless male who presents via EMS for alcohol intoxication. Patient was found on the street stumbling and intoxicated. Patient denies any trauma or falls. History limited given intoxicated state. Patient states "I'm stupid and drank at least 2 pints of vodka". No physical complaints expressed; patient requesting somewhere to sleep. Patient is a known alcoholic who is well known to ED staff for history of alcohol abuse and multiple, frequent visits. Past Medical History Reviewed: Historical Data, Nursing Documentation, Vital Signs Vital Signs: Last Vital Signs Temp 98.4 F 09/27/18 21:59 Pulse 90 09/27/18 21:59 Resp 16 09/27/18 21:59 BP 110/78 09/27/18 21:59 Pulse Ox 96 09/27/18 21:59 Primary Care Provider: FAMILY PROVIDER,NO - Medical History PMH: Anxiety, Arthritis, Depression, Fractures (left leg), Seizures (alcohol related) - Family History Family History: States: Unknown Family Hx - Living Arrangements Living Arrangements: Other (homeless) - Social History Alcohol: > 2 Drinks/Day - Home Medications Home Medications: Ambulatory Orders Medication Instructions Recorded No Known Home Med 09/22/18 - Allergies Allergies/Adverse Reactions: Allergies Allergy/AdvReac Type Severity Reaction Status Date / Time No Known Allergies Allergy Verified 09/27/18 22:03 Review of Systems Review Of Systems: ROS cannot be obtained secondary to pt's inabilty to answer questions. (intoxicated) Physical Exam - Reviewed Nursing Documentation Reviewed: Yes Vital Signs Reviewed: Yes - Physical Exam Appears: Positive for: No Acute Distress (disheveled appearing, solmnolent) Head Exam: Positive for: NORMOCEPHALIC Skin: Positive for: Normal Color, Warm, Dry Eye Exam: Positive for: Conjunctival injection (bilateral) ENT: Positive for: Other (Airway patent, (-) stridor. Mucus membranes moist.) Neck: Positive for: Painless ROM, Supple Cardiovascular/Chest: Positive for: Regular Rate, Rhythm Respiratory: Positive for: Normal Breath Sounds (Respirations even and nonlabored. ) Gastrointestinal/Abdominal: Positive for: Soft. Negative for: Tenderness, Distended Neurological/Psych: Positive for: Awake, Mood/Affect (intoxicated), Gait (unsteady). Negative for: Alert, Oriented - ECG O2 Sat by Pulse Oximetry: 96 (RA) Pulse Ox Interpretation: Normal Medical Decision Making Medical Decision Makin Initial Impression: alcohol abuse with intoxication Plan: Accucheck Serum Alcohol Re-evaluation 2330 Patient sleeping comfortably in ED. No distress noted. Accucheck: 82 Serum Alcohol: 386 0000 Case endorsed to Aiyana Fuentes PA-C pending clinical sobriety and further disposition. Disposition - Clinical Impression Clinical Impression: Alcohol abuse with uncomplicated intoxication - Patient ED Disposition Is Patient to be Admitted: Transfer of Care (endorsed to Aiyana Fuentes PA-C pending clinical sobriety and further disposition.) - Disposition Disposition: Transfer of Care (endorsed to Aiyana Fuentes PA-C pending clinical sobriety and further disposition.) Disposition Time: 00:00 Condition: FAIR - POA Present On Arrival: None Results - Lab Results Lab Results: 09/27/18 22:46 Alcohol, Quantitative 386 H*
--- NOTE | 2018-09-28 01:05 | ED PDOC ---
- ECG O2 Sat by Pulse Oximetry: 96 (RA) Pulse Ox Interpretation: Normal Medical Decision Making Medical Decision Making: Time: 0000 -- Patient endorsed to me by Sachi Schuster PA-C, pending sobriety. 0215 Sleeping comfortably. Easily arousable. 0500 On re-evaluation, pt. easily arousable. Gait steady, unassisted. Scribe Attestation: Documented by Abner Menchaca, acting as a scribe Deborah Fuentes PA-C. Provider Scribe Attestation: All medical record entries made by the Scribe were at my direction and personally dictated by me. I have reviewed the chart and agree that the record accurately reflects my personal performance of the history, physical exam, medical decision making, and the department course for this patient. I have also personally directed, reviewed, and agree with the discharge instructions and disposition. Disposition - Clinical Impression Clinical Impression: Alcohol abuse with uncomplicated intoxication - POA Present On Arrival: None - Disposition Disposition: Routine/Home Disposition Time: 05:16 Condition: IMPROVED Instructions: Alcohol Use - When Is Drinking a Problem?, Effects of Alcohol on Your Health Forms: [email or web address] [facility] (Croatian)
[2018-09-28 05:39] VITALS: BP 124/78; PULSE 88; TEMP 97.8
== END 2018-09-28 05:35 | disposition home or self-care (01) ==
LOC: H.ER 21:57
DX: F10.120 Alcohol abuse with intoxication, uncomplicated (principal); Z86.59 Personal history of other mental and behavioral disorders; Z59.0 Homelessness; Y90.8 Blood alcohol level of 240 mg/100 ml or more

== ENCOUNTER 2018-09-28 23:50 | Emergency (ER) | payer OTHER ==
[2018-09-28 23:50] VITALS: BMI 21.6
[2018-09-28 23:54] VITALS: BP 113/80; TEMP 97.1; O2SAT 97
[2018-09-29] MEDS ORDERED: Permethrin 1% Kit 59 ML BOTTLE TOP STA (01:16)
--- NOTE | 2018-09-29 01:18 | ED PDOC ---
HPI: Psych/Substance Abuse Chief Complaint (Provider): ETOH History Per: EMS Additional Complaint(s): 43 y/o male brought in by EMS for evaluation of alcohol intoxication. Patient sleeping upon arrival, arousable to sternal rub. Lice noted on patient <Lorelei Ng - Last Filed: 09/29/18 04:57> <Chaim Tse A - Last Filed: 09/29/18 06:12> Time Seen by Provider: 09/29/18 00:27 Chief Complaint (Nursing): Alcohol Ingestion Past Medical History Reviewed: Historical Data, Nursing Documentation, Vital Signs Vital Signs: Last Vital Signs Temp 97.1 F L 09/28/18 23:51 Pulse 87 09/28/18 23:51 Resp 16 09/28/18 23:51 BP 113/80 09/28/18 23:51 Pulse Ox 97 09/28/18 23:51 Primary Care Provider: FAMILY PROVIDER,NO - Medical History PMH: Anxiety, Arthritis, Depression, Fractures (left leg), Seizures (alcohol related) Denies: Diabetes, Hepatitis, HIV, HTN, Chronic Kidney Disease, Sexually Transmitted Disease - Surgical History Surgical History: Denies: Appendectomy - Family History Family History: States: Unknown Family Hx - Immunization History Hx Tetanus Toxoid Vaccination: No Hx Influenza Vaccination: Yes (2016) Hx Pneumococcal Vaccination: Yes <Lorelei Ng - Last Filed: 09/29/18 04:57> Vital Signs: Last Vital Signs Temp 97.1 F L 09/28/18 23:51 Pulse 87 09/28/18 23:51 Resp 16 09/28/18 23:51 BP 113/80 09/28/18 23:51 Pulse Ox 97 09/29/18 04:58 <Chaim Tse - Last Filed: 09/29/18 06:12> - Home Medications Home Medications: Ambulatory Orders Medication Instructions Recorded Permethrin 1% Kit [Nix Complete 59 ml TP ONCE #1 bottle 09/29/18 Lice Elimination Kit 1%] - Allergies Allergies/Adverse Reactions: Allergies Allergy/AdvReac Type Severity Reaction Status Date / Time No Known Allergies Allergy Verified 09/27/18 22:03 Review of Systems ROS Statement: Except As Marked, All Systems Reviewed And Found Negative <Lorelei Ng - Last Filed: 09/29/18 04:57> Physical Exam - Reviewed Nursing Documentation Reviewed: Yes Vital Signs Reviewed: Yes - Physical Exam Appears: Positive for: Well, Non-toxic, No Acute Distress Head Exam: Positive for: ATRAUMATIC, NORMAL INSPECTION, NORMOCEPHALIC Skin: Positive for: Normal Color Eye Exam: Positive for: Normal appearance ENT: Positive for: Normal ENT Inspection Cardiovascular/Chest: Positive for: Regular Rate, Rhythm Respiratory: Positive for: Normal Breath Sounds Extremity: Positive for: Normal ROM Neurological/Psych: Positive for: Alert (responds to tactile stimuli) <Lorelei Ng - Last Filed: 09/29/18 04:57> - ECG O2 Sat by Pulse Oximetry: 97 - Progress ED Course And Treament: -accucheck -alcohol level -permethrin 2:30 Patient asking for juice 4:00 Patient sleeping; no distress <Lorelei Ng - Last Filed: 09/29/18 04:57> Medical Decision Making Medical Decision Makin Patient is alert and awake. Ambulatory with steady gait refuses further treatment. <Chaim Tse - Last Filed: 09/29/18 06:12> Disposition - Disposition Disposition Time: 05:00 Patient Signed Over To: Chaim Tse Handoff Comments: pending sobriety, decon <Lorelei Ng - Last Filed: 09/29/18 04:57> <Chaim Tse - Last Filed: 09/29/18 06:12> - Clinical Impression Clinical Impression: Alcohol abuse, Lice - Disposition Referrals: Rob Holm MD [Primary Care Provider] - Condition: GOOD Prescriptions: Permethrin 1% Kit [Nix Complete Lice Elimination Kit 1%] 59 ml TP ONCE #1 bottle Instructions: Lice, Alcohol Use - When Is Drinking a Problem?
[2018-09-29 06:41] VITALS: PULSE 65; RESP 20
== END 2018-09-29 06:10 | disposition home or self-care (01) ==
LOC: H.ER 23:50
DX: F10.129 Alcohol abuse with intoxication, unspecified (principal); B85.2 Pediculosis, unspecified; F32.9 Major depressive disorder, single episode, unspecified; F41.9 Anxiety disorder, unspecified